=== PATIENT | female | born 1955 | race Caucasian/White ===

== ENCOUNTER 2018-03-30 18:05 | Emergency (ER) | payer MEDICAID ==
[~2018-03-30] VITALS: Ht 177.8 cm; Wt 69.4 kg
[~2018-03-30 18:05] MED LIST: CITA-77; CLON0.1T PO; DULO30CA PO; ESCI10TA; FLUO20CA19; GABA300C10; GLIP-115; GLIP-115 PO; LORA-205 PO; LORA-653; LURA40TA PO; METF-371 PO; MIRT1TAB14; PRAVASTATIN; SITA25TA3 PO; ZOLP10TA
[2018-03-30 18:11] VITALS: BP 95/35
[2018-03-30 18:55] LABS: Basophils # (auto) 0.1 uL; Basophils % (auto) 1.3 % (0.0-2.0); Eosinophils # (auto) 0.1 uL; Eosinophils % (auto) 2.4 % (0.0-7.0); Hematocrit 35.7 % (36.0-46.0); Hemoglobin 12.1 g/dL (12.2-16.2); Lymphocytes # (auto) 2.6 uL; Lymphocytes % (auto) 41.7 % (10.0-50.0); Mean Corpuscular Hemoglobin 30.9 pg (28.0-32.0); Mean Corpuscular Hgb Conc. 33.8 g/dL (32.0-36.0); Mean Corpuscular Volume 91.6 fL (80.0-100.0); Monocytes # (auto) 0.6 uL; Monocytes % (auto) 9.8 % (0.0-12.0); Neutrophils # (auto) 2.8 uL; Neutrophils % (auto) 44.8 % (37.0-80.0); Platelet Count (auto) 190 10^3/uL (140-450); Red Cell Distribution Width 13.9 % (11.8-14.3); White Blood Cell 6.1 10^3/uL (4.4-10.8)
[2018-03-30 19:11] LABS: Blood Urea Nitrogen 31 mg/dL (7-18); Calcium 8.3 mg/dL (8.5-10.1); Chloride 108 mmol/L (98-107); Potassium 4.6 mmol/L (3.5-5.1); Sodium 135 mmol/L (136-145)
[2018-03-30 19:19] LABS: Alanine Aminotransferase 68 U/L (13-56); Alkaline Phosphatase 138 U/L (45-117); Anion Gap 7 (5-15); Aspartate Aminotransferase 39 U/L (15-37); BUN/Creatinine Ratio 21.1; Bilirubin, Total 0.2 mg/dL (0.2-1.0); Carbon Dioxide 20 mmol/L (21-32); GFR African American 46 mL/min; GFR Non-African American 38 mL/min; Glucose 293 mg/dL (74-106); Total Protein 6.5 g/dL (6.4-8.2)
== END 2018-03-30 22:24 | disposition left against medical advice (07) ==
LOC: ER 18:09
DX: M54.5 Low back pain (principal); Z53.21 Procedure and treatment not carried out due to patient leaving prior to being seen by health care provider
CPT/HCPCS: 36415; 80053; 84484; 85025

== ENCOUNTER 2018-04-02 11:12 | Inpatient (IN) | payer MEDICAID ==
[~2018-04-02] VITALS: Ht 170.2 cm; Wt 76.9 kg
[2018-04-02 13:16] LABS: Basophils # (auto) 0.1 uL; Basophils % (auto) 1.4 % (0.0-2.0); Eosinophils # (auto) 0.1 uL; Eosinophils % (auto) 2.5 % (0.0-7.0); Hematocrit 43.7 % (36.0-46.0); Hemoglobin 14.5 g/dL (12.2-16.2); Lymphocytes # (auto) 1.5 uL; Lymphocytes % (auto) 29.5 % (10.0-50.0); Mean Corpuscular Hgb Conc. 33.2 g/dL (32.0-36.0); Mean Corpuscular Volume 93.6 fL (80.0-100.0); Monocytes # (auto) 0.4 uL; Monocytes % (auto) 7.6 % (0.0-12.0); Neutrophils # (auto) 2.9 uL; Platelet Count (auto) 175 10^3/uL (140-450); Red Blood Cells 4.67 10^6/uL (4.0-5.20); Red Cell Distribution Width 13.7 % (11.8-14.3)
[2018-04-02 13:31] LABS: Albumin 3.7 g/dL (3.4-5.0); Calcium 8.9 mg/dL (8.5-10.1)
[2018-04-02 13:34] LABS: Bilirubin, Total 0.4 mg/dL (0.2-1.0); Potassium 5.7 mmol/L (3.5-5.1); Total Protein 7.7 g/dL (6.4-8.2)
[2018-04-02 13:35] LABS: BUN/Creatinine Ratio 20.6
[2018-04-02] MEDS ORDERED: InsuLIN REG 1unit/0.01ml Soln (100units/ml) IV ONE (14:00)
[2018-04-02] MEDS ORDERED: CALCIUM GLUC 4.65meq/50ml D5AE 50 ML IV ONE (14:00)
[2018-04-02] MEDS ORDERED: DEXTROSE (50%) 50ML SYRG IV PRN (14:30)
[2018-04-02] MEDS ORDERED: MULTIPLE VITAMIN TAB PO ONE (14:30)
[2018-04-02] MEDS ORDERED: traMADol HCL 50 MG TAB PO PRN (14:30)
[2018-04-02] MEDS ORDERED: MORPHINE SULFATE 4 MG/ML SYR/VIAL IV PRN ×3 (14:30→14:45)
[2018-04-02] MEDS ORDERED: NITROGLYCERIN 0.4 MG SL TAB SL PRN (14:30)
[2018-04-02 14:31] LABS: INR 1.02 (0.9-1.15); Partial Thromboplastin Time 27.1 sec (23.78-33.04); Prothrombin Time 10.9 sec (9.27-12.13)
[2018-04-02] MEDS: SODIUM CHLORIDE 0.9% 1,000 ML IV SCH (14:53)
[2018-04-02] MEDS: MORPHINE SULFATE 4 MG/ML SYR/VIAL IV PRN ×3 (15:03→23:21)
[2018-04-02 16:47] LABS: Urine Bacteria NONE SEEN /hpf (None Seen); Urine Blood Negative /uL (Negative); Urine Specific Gravity 1.025 (1.001-1.035); Urine WBC 2 /hpf (0 - 5)
[2018-04-02] MEDS: ACCU-CHEK COMFORT CURVE STRIP VI SCH ×2 (16:47→22:00)
[2018-04-02] MEDS: InsuLIN REG 1unit/0.01ml Soln (100units/ml) SC SCH ×2 (16:47→22:00)
[2018-04-02 19:33] LABS: BUN/Creatinine Ratio 23.9; Calcium 8.3 mg/dL (8.5-10.1); Potassium 3.9 mmol/L (3.5-5.1)
[2018-04-02 22:00] VITALS: BP 141/73
[2018-04-02] MEDS: GABAPENTIN 300 MG CAP PO SCH (22:55)
[2018-04-02] MEDS: ATORVASTATIN 20 MG TAB PO SCH (22:55)
[2018-04-02] MEDS: MIRTAZAPINE 30 MG TAB PO SCH (22:56)
[2018-04-02] MEDS: QUEtiapine FUMARATE 100 MG TAB PO SCH (22:56)
[2018-04-03] MEDS: TEMAZEPAM 15 MG CAP PO PRN ×2 (00:03→21:39)
[2018-04-03] MEDS: SODIUM CHLORIDE 0.9% 1,000 ML IV SCH ×3 (00:30→20:38)
[2018-04-03] MEDS: MORPHINE SULFATE 4 MG/ML SYR/VIAL IV PRN ×5 (03:44→20:39)
[2018-04-03 05:00] VITALS: BP 103/55
[2018-04-03] MEDS: ACCU-CHEK COMFORT CURVE STRIP VI SCH ×4 (07:00→21:32)
[2018-04-03] MEDS: InsuLIN REG 1unit/0.01ml Soln (100units/ml) SC SCH ×4 (07:00→21:35)
[2018-04-03 07:48] LABS: Basophils # (auto) 0.1 uL; Eosinophils # (auto) 0.2 uL; Hematocrit 37.7 % (36.0-46.0); Hemoglobin 12.6 g/dL (12.2-16.2); Lymphocytes # (auto) 2.7 uL; Lymphocytes % (auto) 51.9 % (10.0-50.0); Mean Corpuscular Hemoglobin 30.6 pg (28.0-32.0); Mean Corpuscular Hgb Conc. 33.3 g/dL (32.0-36.0); Mean Corpuscular Volume 91.9 fL (80.0-100.0); Monocytes # (auto) 0.5 uL; Monocytes % (auto) 9.4 % (0.0-12.0); Neutrophils # (auto) 1.8 uL; Neutrophils % (auto) 33.7 % (37.0-80.0); Nucleated Red Blood Cells % 0.1 %; Platelet Count (auto) 167 10^3/uL (140-450); Red Cell Distribution Width 13.8 % (11.8-14.3); White Blood Cell 5.2 10^3/uL (4.4-10.8)
[2018-04-03 08:00] VITALS: BP 109/68
[2018-04-03 08:12] LABS: Calcium 8.5 mg/dL (8.5-10.1); Potassium 4.1 mmol/L (3.5-5.1)
[2018-04-03 08:14] LABS: BUN/Creatinine Ratio 22.4
[2018-04-03 08:20] VITALS: BP 109/68
[2018-04-03] MEDS: MULTIPLE VITAMIN TAB PO SCH (09:41)
[2018-04-03] MEDS: GABAPENTIN 300 MG CAP PO SCH ×2 (09:41→21:32)
[2018-04-03 12:40] VITALS: BP 126/74
[2018-04-03] MEDS ORDERED: metFORMIN HYDROCHLORIDE 500 MG TAB PO ONE (13:30)
[2018-04-03 16:39] VITALS: BP 139/74
[2018-04-03] MEDS: MIRTAZAPINE 30 MG TAB PO SCH (21:31)
[2018-04-03] MEDS: QUEtiapine FUMARATE 100 MG TAB PO SCH (21:31)
[2018-04-03] MEDS: ATORVASTATIN 20 MG TAB PO SCH (21:32)
[2018-04-03 22:00] VITALS: BP 117/59
[2018-04-04] MEDS: MORPHINE SULFATE 4 MG/ML SYR/VIAL IV PRN ×3 (00:31→08:36)
[2018-04-04 04:58] VITALS: BP 105/64
[2018-04-04 06:03] LABS: Anion Gap 9 (5-15); BUN/Creatinine Ratio 25.3; Blood Urea Nitrogen 25 mg/dL (7-18); Calcium 8.1 mg/dL (8.5-10.1); Carbon Dioxide 22 mmol/L (21-32); Chloride 108 mmol/L (98-107); GFR African American 73 mL/min; GFR Non-African American 60 mL/min; Glucose 230 mg/dL (74-106); Potassium 3.9 mmol/L (3.5-5.1); Sodium 139 mmol/L (136-145)
[2018-04-04] MEDS: SODIUM CHLORIDE 0.9% 1,000 ML IV SCH (06:08)
[2018-04-04] MEDS: InsuLIN REG 1unit/0.01ml Soln (100units/ml) SC SCH (06:16)
[2018-04-04] MEDS: ACCU-CHEK COMFORT CURVE STRIP VI SCH (06:16)
[2018-04-04 08:53] VITALS: BP 137/72
[2018-04-04] MEDS ORDERED: metFORMIN HYDROCHLORIDE 500 MG TAB PO SCH (10:00)
[2018-04-04 10:25] VITALS: BP 137/72
[2018-04-04] MEDS: MULTIPLE VITAMIN TAB PO SCH (10:27)
[2018-04-04] MEDS: GABAPENTIN 300 MG CAP PO SCH (10:28)
[2018-04-04 11:12] VITALS: BP 137/72
== END 2018-04-04 11:12 | disposition home or self-care (01) | DRG 469 ==
LOC: ER 11:12 → TELE 14:35 → TELE-WESTW 21:50
PROVIDERS: ADMIT Internal Medicine; ATTEND Internal Medicine
DX: N17.9 Acute kidney failure, unspecified (principal); E11.42 Type 2 diabetes mellitus with diabetic polyneuropathy; E11.65 Type 2 diabetes mellitus with hyperglycemia; E87.5 Hyperkalemia; F31.9 Bipolar disorder, unspecified; I10 Essential (primary) hypertension; E78.5 Hyperlipidemia, unspecified; F41.9 Anxiety disorder, unspecified; F17.210 Nicotine dependence, cigarettes, uncomplicated; Z82.49 Family history of ischemic heart disease and other diseases of the circulatory system; Z90.710 Acquired absence of both cervix and uterus; Z91.19 Patient's noncompliance with other medical treatment and regimen; Z88.5 Allergy status to narcotic agent; Z88.0 Allergy status to penicillin; Z88.8 Allergy status to other drugs, medicaments and biological substances; Z88.1 Allergy status to other antibiotic agents
CPT/HCPCS: 36415; 80048; 80053; 81001; 82962; 85025; 85610; 85730; 87081; 94761; 96365; 96375; G0378; J0610; J1815

== ENCOUNTER 2018-10-05 14:36 | Inpatient (IN) | payer MEDICAID ==
[~2018-10-05] VITALS: Ht 177.8 cm; Wt 88.0 kg
[~2018-10-05 14:36] MED LIST changes: +AMIT25TA9 PO; -CITA-77; -CLON0.1T PO; -DULO30CA PO; +ENAL2.5T PO; -ESCI10TA; -FLUO20CA19; +GABA-339 PO; -GABA300C10; -GLIP-115; +LAMO25TA2 PO; -LORA-205 PO; -LORA-653; +LURA20TA PO; -LURA40TA PO; -METF-371 PO; +METF500S PO; -MIRT1TAB14; +MIRT30TA PO; -PRAVASTATIN; +QUET200T30 PO; -SITA25TA3 PO; +TEMA7.5C11 PO; -ZOLP10TA
[2018-10-05 15:25] LABS: Basophils # (auto) 0.1 uL; Basophils % (auto) 0.7 % (0.0-2.0); Eosinophils # (auto) 0.1 uL; Eosinophils % (auto) 1.4 % (0.0-7.0); Hematocrit 38.8 % (36.0-46.0); Hemoglobin 13.3 g/dL (12.2-16.2); Lymphocytes # (auto) 2.7 uL; Mean Corpuscular Hemoglobin 31.8 pg (28.0-32.0); Mean Corpuscular Hgb Conc. 34.4 g/dL (32.0-36.0); Mean Corpuscular Volume 92.3 fL (80.0-100.0); Monocytes # (auto) 0.7 uL; Monocytes % (auto) 9.5 % (0.0-12.0); Neutrophils # (auto) 3.4 uL; Neutrophils % (auto) 49.4 % (37.0-80.0); Platelet Count (auto) 176 10^3/uL (140-450)
[2018-10-05 15:34] LABS: Albumin 3.8 g/dL (3.4-5.0); Anion Gap 10 (5-15); Blood Urea Nitrogen 45 mg/dL (7-18); Calcium 8.7 mg/dL (8.5-10.1); Carbon Dioxide 21 mmol/L (21-32); Chloride 106 mmol/L (98-107); Glucose 254 mg/dL (74-106); Potassium 4.2 mmol/L (3.5-5.1); Sodium 137 mmol/L (136-145)
[2018-10-05 15:40] LABS: Alanine Aminotransferase 20 U/L (13-56); Alkaline Phosphatase 101 U/L (45-117); Aspartate Aminotransferase 8 U/L (15-37); Bilirubin, Total 0.4 mg/dL (0.2-1.0); Blood Alcohol < 3.0 mg/dL (0-5); GFR African American 36 mL/min; GFR Non-African American 30 mL/min; Magnesium 1.9 mg/dL (1.6-2.6); Total Protein 7.2 g/dL (6.4-8.2)
[2018-10-05] MEDS ORDERED: MORPHINE SULF INJ 2 MG/ML SYRINGE 1ML IV PRN (17:30)
[2018-10-05] MEDS ORDERED: LABETALOL HCL 5 MG/ML ML 20ML VIAL IV PRN (17:30)
[2018-10-05] MEDS ORDERED: DEXTROSE (50%) 50ML SYRG IV PRN (17:30)
[2018-10-05] MEDS ORDERED: NITROGLYCERIN 0.4 MG SL TAB SL PRN (17:30)
[2018-10-05] MEDS ORDERED: LACTULOSE 20Gm/30ML SOLN PO PRN (17:30)
[2018-10-05] MEDS ORDERED: traMADol HCL 50 MG TAB PO PRN (17:30)
[2018-10-05] MEDS ORDERED: ONDANSETRON HCL 4 MG/2 ML VIAL IV PRN (17:30)
[2018-10-05] MEDS: SODIUM CHLORIDE 0.9% 1,000 ML IV SCH ×2 (17:55→19:08)
--- NOTE | 2018-10-05 18:27 | NUR ---
PT ADMITTED TO FLOOR VIA BED FROM [facility].. PT REPORTS 10/10 PAIN IN BACK. VITALS: BP 116/65, HR 89, 02 95, RR 18, T 98.0. PT RESTING IN BED AND REQUESTING MEAL TRAY. PT ORIENTED TO UNIT AND CALL LIGHT. SIDE RAILS UP X2, BED IN LOWEST LOCKED POSITION, WILL CONTINUE TO MONITOR.
[2018-10-05 18:45] VITALS: BP 116/65
[2018-10-05] MEDS: ACCU-CHEK COMFORT CURVE STRIP VI SCH (19:44)
[2018-10-05] MEDS: InsuLIN REG 1unit/0.01ml Soln (100units/ml) SC SCH (19:44)
--- NOTE | 2018-10-05 20:00 | NUR ---
Hospitalist stewart. Cheng ROYAL paged hospitalist d/t patient complaining of severe 10/10 pain.
--- NOTE | 2018-10-05 20:15 | NUR ---
Patient informed RN that she is not allergic to hydrocodone and does not know why it is on her file that she is allergic to hydrocodone. RN to inform hospitalist when call back is received.
--- NOTE | 2018-10-05 20:30 | NUR ---
Received call back from hospitalist. Hospitalist updated on patients pain and condition. New orders received.
--- NOTE | 2018-10-05 20:40 | NUR ---
IV insertion IV access obtained, via clean sterile technique by inserting 22 gauge catheter at right forearm after 1 attempt. IV secured properly. No trauma to site. Patient tolerated procedure well.
[2018-10-05] MEDS ORDERED: MORPHINE SULFATE 4 MG/ML SYR/VIAL IV ONE (21:00)
[2018-10-05] MEDS: MIRTAZAPINE 30 MG TAB PO SCH (21:59)
[2018-10-05 22:00] VITALS: BP 106/68
[2018-10-05] MEDS ORDERED: ATORVASTATIN 20 MG TAB PO SCH (22:00)
[2018-10-05] MEDS: TEMAZEPAM 15 MG CAP PO PRN (22:23)
[2018-10-06] MEDS: ACCU-CHEK COMFORT CURVE STRIP VI SCH ×7 (00:05→23:45)
[2018-10-06] MEDS: InsuLIN REG 1unit/0.01ml Soln (100units/ml) SC SCH ×7 (00:09→23:45)
[2018-10-06] MEDS ORDERED: BUSP15TA60 PO (04:32)
[2018-10-06] MEDS ORDERED: PROP60CA34 PO (04:32)
[2018-10-06 04:57] VITALS: BP 97/57
[2018-10-06 06:01] LABS: Potassium 3.7 mmol/L (3.5-5.1)
[2018-10-06 06:05] LABS: BUN/Creatinine Ratio 23.1
[2018-10-06 06:06] LABS: Bilirubin, Total 0.3 mg/dL (0.2-1.0)
--- NOTE | 2018-10-06 06:12 | NUR ---
Hospitalist paged: Patient complaining of increased pain and states that Tramadol is not effective in managing her pain.
[2018-10-06 06:16] LABS: Cholesterol 244 mg/dL (< 200)
[2018-10-06 06:17] LABS: HDL Cholesterol 40 mg/dL (40-59); LDL Cholesterol 160 mg/dL (< 100); Triglycerides 311 mg/dL (< 150)
--- NOTE | 2018-10-06 06:20 | NUR ---
Received call back from hospitalist. Hospitalist updated on patients pain and condition. New orders received.
[2018-10-06] MEDS ORDERED: HYDROmorphone HCL 2 MG/ML VL IV ONE (06:30)
--- NOTE | 2018-10-06 08:21 | NUR ---
PT RESTING IN BED. PT REPORTS 10/10 PAIN IN BACK AND SLIGHT PAIN IN CHEST. PT REPORTS PAIN IS THE SAME FROM YESTERDAY PRIOR TO ADMISSION. NO PAIN MEDICATION AVAILABLE AT THIS TIME, WILL ASK HOSPITALIST. PT REQUESTING A SALAD AND 2 ICE TEAS WITH EVERY MEAL. REQUEST ALREADY SENT TO DIETARY BY NIGHT NURSE. WILL CONTINUE TO MONITOR.
[2018-10-06 08:48] VITALS: BP 101/59
[2018-10-06] MEDS: ASPirin 81 mg TAB PO SCH (09:45)
[2018-10-06] MEDS: ENOXAPARIN SOD 40 MG/0.4 ML SYRINGE SC SCH (09:46)
[2018-10-06] MEDS: PANTOPRAZOLE 40 MG TAB PO SCH (09:46)
--- NOTE | 2018-10-06 11:15 | NUR ---
SPOKE WITH DR POWER, REQUESTED PRN PAIN MEDICATION. MD REPORTS NO PAIN MEDICATION, PT WAS REQUESTING DILAUDID. DR POWER REPORTS HE WILL CONTINUE PT PSYCH MEDS, WILL CONTINUE TO MONITOR.
[2018-10-06] MEDS: SODIUM CHLORIDE 0.9% 1,000 ML IV SCH (12:14)
--- NOTE | 2018-10-06 12:22 | NUR ---
SPOKE WITH DR POWER ABOUT PAIN MEDICATION. AGREED TO ACETAMINOPHEN. SPOKE WITH PT, PT REPORTS SHE IS NOT ALLERGIC TO ACETAMINOPHEN, BUT REPORTS SHE WILL NOT TAKE IT IT DOES NOT ALLEVIATE HER PAIN. UPDATED ALLERGY LIST. WILL CONTINUE TO MONITOR.
--- NOTE | 2018-10-06 12:29 | NUR ---
PT REPORTS SHE HAS NO PREVIOUS BACK INJURY AND NO KNOWLEDGE OF WHAT IS CAUSING THE PAIN IN HER BACK.
[2018-10-06] MEDS ORDERED: ACETAMINOPHEN 500 MG TAB PO PRN (12:30)
[2018-10-06 13:00] VITALS: BP 136/76
--- NOTE | 2018-10-06 13:59 | NUR ---
ASKED FLIGHT CONTROL SPECIALIST TO CALL IN NEPHRO CONSULT.
--- NOTE | 2018-10-06 15:00 | NUR ---
CALLED TELE [employer] TO INITIATE PSYCH CONSULT. TECH REPORTS SHE WILL SUBMIT INFORMATION AND A PHYSICIAN WILL CALL BACK, WILL CONTINUE TO MONITOR.
--- NOTE | 2018-10-06 16:45 | NUR ---
TELE MED CALLED BACK. TECH REPORTS A PHYSICIAN WILL BE AVAILABLE TO DO PSYCH EVALUATION TOMORROW BETWEEN 0700 AND 1200. WILL CONTINUE TO MONITOR.
--- NOTE | 2018-10-06 16:49 | NUR ---
CALLED ULTRASOUND, ULTRASOUND REPORTS THERE WAS NO EXECUTIVE LEGAL SECRETARY AVAILABLE TODAY, BUT PT CAROTID ULTRASOUND WILL BE DONE FIRST THING IN MORNING. PAGED ECHO TO FOLLOW UP ON PT ECHOCARDIOGRAM, PBX REPORTS THEY WILL PAGE ECHO TO CALL BACK.
[2018-10-06 17:11] VITALS: BP 138/71
--- NOTE | 2018-10-06 20:00 | NUR ---
Opening Shift Note: patient resting in bed while locked in lowest position and side rails up x2. i explained to patient as to why she does not have any pain medication at this moment. She accepts this reasoning. No complaints at this time of pain or discomfort. she was updated on her plan of care. Aware to use call light if assistance is needed. Will continue to monitor.
[2018-10-06 21:54] VITALS: BP 138/82
[2018-10-06] MEDS: GABAPENTIN 300 MG CAP PO SCH (22:11)
[2018-10-06] MEDS: ATORVASTATIN 20 MG TAB PO SCH (22:11)
[2018-10-06] MEDS: TEMAZEPAM 15 MG CAP PO PRN (22:12)
[2018-10-06] MEDS: MIRTAZAPINE 30 MG TAB PO SCH (22:12)
[2018-10-06] MEDS: LORazepam 0.5 MG TAB PO PRN (22:12)
[2018-10-07] MEDS: InsuLIN REG 1unit/0.01ml Soln (100units/ml) SC SCH ×6 (04:05→20:22)
[2018-10-07] MEDS: ACCU-CHEK COMFORT CURVE STRIP VI SCH ×5 (04:05→20:22)
[2018-10-07 05:18] VITALS: BP 152/66
[2018-10-07] MEDS: GABAPENTIN 300 MG CAP PO SCH ×3 (06:00→22:03)
--- NOTE | 2018-10-07 07:30 | NUR ---
Opening Shift Note Assumed care of patient, awake and alert. No S/S of distress/SOB or pain. Instructed on POC and to call for assist PRN, will continue to monitor for changes Q1hr and PRN.
[2018-10-07 07:38] LABS: Calcium 8.4 mg/dL (8.5-10.1); Potassium 4.6 mmol/L (3.5-5.1)
[2018-10-07 08:59] VITALS: BP 122/75
[2018-10-07] MEDS: ENOXAPARIN SOD 40 MG/0.4 ML SYRINGE SC SCH (09:53)
[2018-10-07] MEDS: ASPirin 81 mg TAB PO SCH (09:53)
[2018-10-07] MEDS: SODIUM CHLORIDE 0.9% 1,000 ML IV SCH ×2 (09:53→19:44)
[2018-10-07] MEDS: PANTOPRAZOLE 40 MG TAB PO SCH (09:54)
[2018-10-07] MEDS ORDERED: POLYETHYLENE GLYCOL 17 GM PWDR PO PRN (13:15)
[2018-10-07 13:17] VITALS: BP 140/74
--- NOTE | 2018-10-07 15:25 | NUR ---
DR POWER PAGED RE: PT'S PSYCH EVALUATION REPORT. WAITING FOR CALL BACK.
[2018-10-07] MEDS ORDERED: lamoTRIgine 100 MG TAB PO ONE (15:45)
--- NOTE | 2018-10-07 15:46 | NUR ---
SPOKE TO DR POWER PSYCH EVALUATION REPORT READ TO MD. MADE AWARE THAT PT HAD BEEN VERY UPSET FOR NOT GETTING HER PAIN MEDICATION AND HER PSYCH MEDICATIONS. NEW ORDERS RECEIVED AND CARRIED OUT.
--- NOTE | 2018-10-07 17:00 | NUR ---
PT NOTES PT HAD BEEN UPSET WITH HOW NOT ALL OF HER PSYCH MEDICATIONS WERE BEING GIVEN. EXPLAINED TO PT THE DOCTOR HAD BEEN AWARE OF HER HOME MEDS AND THE DOCTOR HAD EXPLAINED TO PT THAT HE WILL CONTINUE THE PSYCH MEDICATIONS THAT THE PSYCHIATRIST WILL RECOMMEND. PT IS VERY CONCERNED ABOUT HER NIGHTTIME MEDICATIONS. I PRINTED A LIST OF HER MEDS THAT SHE WILL GET TONIGHT AND WENT OVER IT WITH HER. PT WAS SATISFIED.
[2018-10-07 17:25] VITALS: BP 137/75
--- NOTE | 2018-10-07 18:30 | NUR ---
UA PT GIVEN THE SPECIMEN CUP AND INSTRUCTIONS TO COLLECT URINE. PT VERBALIZED UNDERSTANDING.
--- NOTE | 2018-10-07 19:00 | NUR ---
CLOSING NOTES REPORT GIVEN TO NOC RN. PT RESTING. NO DISTRESS NOTED.
--- NOTE | 2018-10-07 20:00 | NUR ---
Opening Shift Note: Patient resting in bed calmly. She has no complaints of pain at this moment. She is AOx4 and ambulates short distances without complaints of exertion. Bed is locked in it's lowest position with side rails up x2. She was brought up to date on her plan of care. Will continue to monitor.
--- NOTE | 2018-10-07 22:00 | NUR ---
Patient UA was collected and sent to lab via bullet system.
[2018-10-07] MEDS: TEMAZEPAM 15 MG CAP PO PRN (22:03)
[2018-10-07] MEDS: MIRTAZAPINE 30 MG TAB PO SCH (22:03)
[2018-10-07] MEDS: ATORVASTATIN 20 MG TAB PO SCH (22:03)
[2018-10-07] MEDS: LATUDA 60MG PO SCH (22:03)
[2018-10-07] MEDS: OXYCODONE W/ ACETAMINOPHEN 5/325MG TABLET PO PRN (22:03)
[2018-10-07] MEDS: LORazepam 0.5 MG TAB PO PRN (22:03)
[2018-10-07 22:29] LABS: Urine Bacteria NONE SEEN /hpf (None Seen); Urine Blood 1+ /uL (Negative); Urine Specific Gravity 1.011 (1.001-1.035); Urine WBC 9 /hpf (0 - 5)
[2018-10-07 22:32] LABS: Sodium Urine 90 mmol/L (40-220)
[2018-10-07 22:37] LABS: Creatinine, Urine 22 mg/dL (30.0-125.0)
[2018-10-07 22:39] LABS: Alcohol, Urine < 3.0 mg/dL (0-5); Amphetamine Screen, Urine NEGATIVE (NEGATIVE); Barbiturate Scree,Urine NEGATIVE (NEGATIVE); Benzodiazephine Screen, Urine NEGATIVE (NEGATIVE); Cannabinoid Screen, Urine POSITIVE (NEGATIVE); Cocaine Screen, Urine POSITIVE (NEGATIVE); Opiate Scree,Urine NEGATIVE (NEGATIVE); Phencyclidine Screen, Urine NEGATIVE (NEGATIVE)
[2018-10-07 22:40] VITALS: BP 113/70
[2018-10-08] MEDS: ACCU-CHEK COMFORT CURVE STRIP VI SCH ×6 (00:06→20:01)
[2018-10-08] MEDS: InsuLIN REG 1unit/0.01ml Soln (100units/ml) SC SCH ×6 (00:06→20:03)
[2018-10-08] MEDS: OXYCODONE W/ ACETAMINOPHEN 5/325MG TABLET PO PRN ×3 (04:50→22:26)
[2018-10-08 05:51] VITALS: BP_SYST 126; BP_SYST 150; BP_DIAS 73; BP_DIAS 83
[2018-10-08 06:09] LABS: Calcium 8.2 mg/dL (8.5-10.1); Potassium 4.3 mmol/L (3.5-5.1)
[2018-10-08] MEDS: GABAPENTIN 300 MG CAP PO SCH ×3 (06:10→21:35)
[2018-10-08 06:16] LABS: BUN/Creatinine Ratio 17.3; Bilirubin, Total 0.3 mg/dL (0.2-1.0); Phosphorus 3.5 mg/dL (2.5-4.90); Total Protein 5.9 g/dL (6.4-8.2)
[2018-10-08] MEDS: ENOXAPARIN SOD 40 MG/0.4 ML SYRINGE SC SCH (08:42)
[2018-10-08] MEDS: PANTOPRAZOLE 40 MG TAB PO SCH (08:42)
[2018-10-08] MEDS: lamoTRIgine 100 MG TAB PO SCH (08:43)
[2018-10-08] MEDS: ASPirin 81 mg TAB PO SCH (08:43)
[2018-10-08] MEDS: SODIUM CHLORIDE 0.9% 1,000 ML IV SCH ×2 (08:46→20:01)
[2018-10-08 08:52] VITALS: BP 127/68
[2018-10-08] MEDS: LORazepam 0.5 MG TAB PO PRN (09:10)
--- NOTE | 2018-10-08 10:10 | NUR ---
MD JOEY AT BEDSIDE NEW ORDERS TO CONTINUE HOME MEDICATIONS, DISCONTINUE ATIVAN AND RESTORIL. WILL FOLLOW THROUGH WITH NEW ORDERS. WILL CONTINUE CARE.
[2018-10-08] MEDS ORDERED: CIPROFLOXACIN HCL 500 MG TAB PO ONE (10:15)
[2018-10-08] MEDS ORDERED: busPIRone HCL 10 MG TAB PO ONE (10:30)
[2018-10-08] MEDS ORDERED: glipiZIDE 5 MG TAB PO ONE (10:30)
[2018-10-08] MEDS ORDERED: metFORMIN HYDROCHLORIDE 500 MG TAB PO ONE (10:30)
[2018-10-08] MEDS ORDERED: ENALAPRIL MALEATE 2.5 MG TAB PO ONE (10:30)
[2018-10-08 13:04] VITALS: BP 151/94
[2018-10-08] MEDS: PROPRANOLOL HCL 20 MG TAB PO SCH ×2 (14:05→21:34)
[2018-10-08 17:18] VITALS: BP 129/76
--- NOTE | 2018-10-08 19:30 | NUR ---
Opening Shift Note Assumed care of patient, awake and alert oriented x4. No S/S of distress/SOB noted. Bed is in lowest locked position with bed rails up x2 and call light is within reach of the patient. Bed alarm is armed. Instructed on POC and to call for assist PRN.
[2018-10-08] MEDS: LATUDA 60MG PO SCH (21:30)
[2018-10-08] MEDS: busPIRone HCL 10 MG TAB PO SCH (21:32)
[2018-10-08] MEDS: MIRTAZAPINE 30 MG TAB PO SCH (21:33)
[2018-10-08] MEDS: ATORVASTATIN 20 MG TAB PO SCH (21:35)
[2018-10-08] MEDS: AMITRIPTYLINE HCL 25 MG TAB PO SCH (21:37)
[2018-10-08] MEDS: CIPROFLOXACIN HCL 500 MG TAB PO SCH (21:38)
--- NOTE | 2018-10-08 21:45 | NUR ---
Called Doctor Marciano regarding Restoril: Left message to doctor Marciano. Patient requesting Restoril for sleep. Patient states that "I wont be able to sleep at night without my sleeping pill."
[2018-10-08 22:00] VITALS: BP 117/75
[2018-10-09] MEDS: ACCU-CHEK COMFORT CURVE STRIP VI SCH ×7 (00:06→23:33)
[2018-10-09] MEDS: InsuLIN REG 1unit/0.01ml Soln (100units/ml) SC SCH ×7 (00:06→23:33)
[2018-10-09] MEDS: OXYCODONE W/ ACETAMINOPHEN 5/325MG TABLET PO PRN ×4 (04:59→23:19)
--- NOTE | 2018-10-09 05:00 | NUR ---
Patient states to have almost fell: Patient states "I almost fell while I was trying to get back into bed from the commode. I have no feeling in my legs and my core from the waste down. I dont walk well, that is why i cam into the hospital." RISK PREVENTION ENGINEER was just outside the door and assisted patient back into bed. Patient stated that they did not injure themselves and did not hit their head. Patient stated " I was holding onto the bed rail, but I did not hit the floor." Patient is resting in bed with no S/S of distress noted. Call light is within each of the patient. Addendum: 10/09/18 at 0505 by Maggie Handy RN RN Spelling error: waist
[2018-10-09 05:34] VITALS: BP 107/66
[2018-10-09] MEDS: PROPRANOLOL HCL 20 MG TAB PO SCH ×3 (06:29→21:30)
[2018-10-09] MEDS: GABAPENTIN 300 MG CAP PO SCH ×3 (06:29→21:33)
[2018-10-09 06:32] LABS: Basophils # (auto) 0.1 uL; Eosinophils # (auto) 0.2 uL; Eosinophils % (auto) 2.9 % (0.0-7.0); Hematocrit 33.3 % (36.0-46.0); Hemoglobin 11.5 g/dL (12.2-16.2); Lymphocytes # (auto) 2.3 uL; Lymphocytes % (auto) 44.8 % (10.0-50.0); Mean Corpuscular Hemoglobin 32.3 pg (28.0-32.0); Mean Corpuscular Hgb Conc. 34.6 g/dL (32.0-36.0); Mean Corpuscular Volume 93.4 fL (80.0-100.0); Monocytes # (auto) 0.5 uL; Monocytes % (auto) 9.3 % (0.0-12.0); Neutrophils # (auto) 2.2 uL; Nucleated Red Blood Cells % 0.1 %; Platelet Count (auto) 128 10^3/uL (140-450); Red Blood Cells 3.56 10^6/uL (4.0-5.20); Red Cell Distribution Width 11.7 % (11.8-14.3); White Blood Cell 5.2 10^3/uL (4.4-10.8)
[2018-10-09 06:53] LABS: Potassium 3.8 mmol/L (3.5-5.1)
[2018-10-09] MEDS ORDERED: glipiZIDE 5 MG TAB PO SCH (07:00)
[2018-10-09 07:03] LABS: Albumin 2.7 g/dL (3.4-5.0); BUN/Creatinine Ratio 15.7; Bilirubin, Total 0.3 mg/dL (0.2-1.0); Calcium 7.5 mg/dL (8.5-10.1); Total Protein 5.3 g/dL (6.4-8.2)
[2018-10-09 07:35] VITALS: BP 116/71
[2018-10-09] MEDS: CIPROFLOXACIN HCL 500 MG TAB PO SCH ×2 (09:29→21:34)
[2018-10-09] MEDS: lamoTRIgine 100 MG TAB PO SCH (09:29)
[2018-10-09] MEDS: PANTOPRAZOLE 40 MG TAB PO SCH (09:29)
[2018-10-09] MEDS: SODIUM CHLORIDE 0.9% 1,000 ML IV SCH ×2 (09:29→20:05)
[2018-10-09] MEDS: busPIRone HCL 10 MG TAB PO SCH ×2 (09:29→21:31)
[2018-10-09] MEDS: ASPirin 81 mg TAB PO SCH (09:29)
[2018-10-09] MEDS: metFORMIN HYDROCHLORIDE 500 MG TAB PO SCH (09:30)
[2018-10-09] MEDS: ENOXAPARIN SOD 40 MG/0.4 ML SYRINGE SC SCH (09:30)
[2018-10-09] MEDS: ENALAPRIL MALEATE 2.5 MG TAB PO SCH (09:31)
[2018-10-09 11:43] VITALS: BP 123/77
--- NOTE | 2018-10-09 13:04 | NUR ---
NUTRITION ASSESSMENT NOTES Please refer to link notes of nutrition screen form filed under the intervention section of the plan of care for further details. Est. Needs: 1700 kcal to 2100 kcal (20-25 kcal/kgBW), 67 gms to 84 gms pro (0.8-1.0 gms/kgBW). Will continue to monitor pertinent labs and reassess nutrient need prn Thank you. Addendum: 10/09/18 at [address] Amended: Links added.
[2018-10-09 16:19] VITALS: BP 132/82
--- NOTE | 2018-10-09 16:40 | NUR ---
assessment Patient is a 63 year old female who is alert and oriented. Patients cognitive abilities are intact. Prior to admission patient lived home with family and functioned independently. Patient informed me she is able to care for her own ADLs. Per patient she will return home to her prior living arrangements post discharge and family will transport her home. Per patient her PCP is Dr Philip Tariq. Patient has been admitted for CVA. Per patient she is having right side weakness. Patient will benefit from home health for PT on discharge. Patient has no DME at home. Patient will also need a fww for home. I informed patient she has a right to speak to a social group worker regarding all care. I informed patient she has a right to participate in any and all discharge planning. Patient is aware of visiting hours on the hospital floor. I informed patient she has a right to privacy. Patient does not have a POA and advanced directive. I have offered patient information on POA and advanced directives. I informed the patient the advantages and benefits of having an Advanced Directive. Patient verbalized understanding and agreed to discharge plan. Addendum: 10/09/18 at 1652 by Kerri WAKEFIELD Amended: Links added.
[2018-10-09] MEDS: glipiZIDE 5 MG TAB PO SCH (18:31)
--- NOTE | 2018-10-09 19:14 | NUR ---
CLOSING NOTE ENDORSED CARE TO WHEAT SHIPPER RN. PATIENT SITTING AT BEDSIDE, BED IN LOW LOCK POSITION, CALL LIGHT IN REACH. NO S/S OF DISTRESS.
--- NOTE | 2018-10-09 19:30 | NUR ---
Opening Shift Note Assumed care of patient, awake and alert oriented x4. No S/S of distress/SOB noted on room air. Bed is in lowest locked position with bed rails up x2 and call light is within reach of the patient. Instructed on POC and to call for assist PRN.
--- NOTE | 2018-10-09 20:00 | NUR ---
Patient ambulated around Unit: Patient ambulated a lap around unit with walker assisted by SHUTTLELESS LOOM WEAVER. Patient tolerated well. No s/s of distress SOB noted. Patient resting in bed now with call light in reach of the patient.
[2018-10-09] MEDS: MIRTAZAPINE 30 MG TAB PO SCH (21:32)
[2018-10-09] MEDS: AMITRIPTYLINE HCL 25 MG TAB PO SCH (21:33)
[2018-10-09] MEDS: ATORVASTATIN 20 MG TAB PO SCH (21:34)
[2018-10-09] MEDS: LATUDA 60MG PO SCH (21:35)
[2018-10-09 22:00] VITALS: BP 120/74
[2018-10-10] MEDS: ACCU-CHEK COMFORT CURVE STRIP VI SCH ×3 (03:40→12:00)
[2018-10-10] MEDS: InsuLIN REG 1unit/0.01ml Soln (100units/ml) SC SCH ×3 (03:41→12:00)
[2018-10-10 05:00] VITALS: BP 108/63
[2018-10-10] MEDS: GABAPENTIN 300 MG CAP PO SCH ×2 (05:49→14:00)
[2018-10-10] MEDS: OXYCODONE W/ ACETAMINOPHEN 5/325MG TABLET PO PRN (05:49)
[2018-10-10] MEDS: PROPRANOLOL HCL 20 MG TAB PO SCH ×2 (05:50→14:00)
[2018-10-10 06:11] LABS: BUN/Creatinine Ratio 15.8; Calcium 8.4 mg/dL (8.5-10.1); Potassium 4.7 mmol/L (3.5-5.1)
[2018-10-10] MEDS: glipiZIDE 5 MG TAB PO SCH (06:43)
--- NOTE | 2018-10-10 07:30 | NUR ---
Opening Shift Note Assumed care of patient, awake and alert. No S/S of distress/SOB or pain. Instructed on POC and to call for assist PRN, will continue to monitor for changes Q1hr and PRN. Bed locked in lowest position with two side rails up can call light in reach.
[2018-10-10 09:00] VITALS: BP 136/78
[2018-10-10] MEDS: ENOXAPARIN SOD 40 MG/0.4 ML SYRINGE SC SCH (09:11)
[2018-10-10] MEDS: metFORMIN HYDROCHLORIDE 500 MG TAB PO SCH (09:14)
[2018-10-10] MEDS: PANTOPRAZOLE 40 MG TAB PO SCH (09:14)
[2018-10-10] MEDS: CIPROFLOXACIN HCL 500 MG TAB PO SCH (09:14)
[2018-10-10] MEDS: lamoTRIgine 100 MG TAB PO SCH (09:14)
[2018-10-10] MEDS: ASPirin 81 mg TAB PO SCH (09:14)
[2018-10-10] MEDS: busPIRone HCL 10 MG TAB PO SCH (09:14)
[2018-10-10] MEDS: ENALAPRIL MALEATE 2.5 MG TAB PO SCH (09:15)
[2018-10-10] MEDS: SODIUM CHLORIDE 0.9% 1,000 ML IV SCH (09:15)
--- NOTE | 2018-10-10 09:20 | NUR ---
PT ATTEMPTING TO WORK WITH PATIENT, PATIENT REFUSED. I EDUCATED PATIENT AND PATIENT AGREED TO WORK WITH PT AND WAS ABLE TO WALK WITH PT AND A WALKER. PER PT PATIENT IS ABLE TO BE DISCHARGED FROM PT STAND POINT. PATIENT TOLERATED WELL NO SIGNS AND SYMPTOMS OF DISTRESS NOTED.
--- NOTE | 2018-10-10 10:00 | NUR ---
MEDICATION ADMINISTERED PER MAR, ALL QUESTIONS ANSWERED AND SIDE EFFECTS GIVEN. PATIENT VERBALIZED UNDERSTANDING.
[2018-10-10 10:55] VITALS: BP 136/78
--- NOTE | 2018-10-10 12:19 | NUR ---
CALLED AND LEFT MESSAGE FOR DR COOK, WILL AWAIT CALL BACK REGARDING PRESCRIPTIONS FOR PATIENT UPON DISCHARGE.
--- NOTE | 2018-10-10 12:30 | NUR ---
PATIENT REFUSING ACCU CHECK STATES SHE WILL CHECK IT AT HOME.
[2018-10-10 13:00] VITALS: BP 112/69
--- NOTE | 2018-10-10 13:03 | NUR ---
RECEIVED A CALL BACK FROM DR COOK PRESCRIPTIONS RECEIVED AND WILL CALL IN FOR ASPIRIN 81 MG DAILY #90 AND LIPITOR 20MG DAILY #90 PATIENTS PHARMACY VERIFIED.
--- NOTE | 2018-10-10 13:09 | NUR ---
PRESCRIPTIONS CALLED IN TO [facility]YUDMIL[facility] SOLOMON LIPITOR 20 MG AND ASPIRIN 81 MG
--- NOTE | 2018-10-10 14:10 | NUR ---
Discharge instructions given as ordered. Encourage to follow up with PMD as instructed. All questions and concerns addressed. Patient verbalized understanding. Medication reconciliation form completed and copy given to patient. Home medications held in Pharmacy returned to patient, and no needed vaccines given. IV removed with catheter intact, pressure dressing applied. Telemetry unit returned to ICU. Patient taken to vehicle via wheelchair with all personal belongings, accompanied by staff and family member. No distress noted at time of departure. Patient also had all home medications in hand.
== END 2018-10-10 14:30 | disposition home or self-care (01) | DRG 469 ==
LOC: ER 14:36 → TELE 17:25 → TELE-WESTW 18:31
PROVIDERS: ADMIT Internal Medicine; ATTEND Internal Medicine
DX: N17.0 Acute kidney failure with tubular necrosis (principal); E44.0 Moderate protein-calorie malnutrition; E11.21 Type 2 diabetes mellitus with diabetic nephropathy; E11.42 Type 2 diabetes mellitus with diabetic polyneuropathy; E86.0 Dehydration; G45.9 Transient cerebral ischemic attack, unspecified; E11.65 Type 2 diabetes mellitus with hyperglycemia; E11.22 Type 2 diabetes mellitus with diabetic chronic kidney disease; F41.9 Anxiety disorder, unspecified; N39.0 Urinary tract infection, site not specified; I12.9 Hypertensive chronic kidney disease with stage 1 through stage 4 chronic kidney disease, or unspecified chronic kidney disease; F31.9 Bipolar disorder, unspecified; E78.5 Hyperlipidemia, unspecified; N18.3 Chronic kidney disease, stage 3 (moderate); N31.9 Neuromuscular dysfunction of bladder, unspecified; I25.10 Atherosclerotic heart disease of native coronary artery without angina pectoris; F12.90 Cannabis use, unspecified, uncomplicated; Z68.27 Body mass index [BMI] 27.0-27.9, adult; Z88.0 Allergy status to penicillin; Z88.8 Allergy status to other drugs, medicaments and biological substances; Z82.49 Family history of ischemic heart disease and other diseases of the circulatory system; Z83.3 Family history of diabetes mellitus; Z90.710 Acquired absence of both cervix and uterus; Z91.19 Patient's noncompliance with other medical treatment and regimen
CPT/HCPCS: 36415; 70450; 71045; 72131; 76775; 80048; 80053; 80061; 80307; 80320; 81001; 82043; 82306; 82550; 82570; 82962; 83036; 83735; 83880; 83970; 84100; 84300; 84484; 85025; 85379; 85652; 86141; 87081; 93005; 93306; 93886; 97116; 97530; A6257; G0378; J1815

== ENCOUNTER 2019-01-31 12:12 | Emergency (ER) | payer MEDICAID ==
[~2019-01-31] VITALS: Ht 172.7 cm; Wt 72.6 kg
[~2019-01-31 12:12] MED LIST changes: +ASPI-404 PO; +ATOR20TA50 PO; +BUSP15TA60 PO; +DOCU1CAP PO; +ESOM20CA PO; -GLIP-115 PO; +GLIP5TAB12 PO; +HYDR50TA69 PO; +LINA290C OR; +MAGN400C2 PO; +MORP60TA25 PO; +PROP60CA34 PO; -QUET200T30 PO
[2019-01-31] MEDS ORDERED: SODIUM CHLORIDE 0.9% 1,000 ML IV ONE ×2 (12:28)
[2019-01-31 13:25] LABS: Basophils # (auto) 0.1 uL; Basophils % (auto) 0.9 % (0.0-2.0); Eosinophils # (auto) 0.1 uL; Eosinophils % (auto) 0.9 % (0.0-7.0); Hematocrit 35.6 % (36.0-46.0); Hemoglobin 11.7 g/dL (12.2-16.2); Lymphocytes # (auto) 1.3 uL; Lymphocytes % (auto) 22.5 % (10.0-50.0); Mean Corpuscular Hemoglobin 28.8 pg (28.0-32.0); Mean Corpuscular Hgb Conc. 32.9 g/dL (32.0-36.0); Mean Corpuscular Volume 87.5 fL (80.0-100.0); Monocytes # (auto) 0.5 uL; Monocytes % (auto) 7.6 % (0.0-12.0); Neutrophils % (auto) 68.1 % (37.0-80.0); Platelet Count (auto) 260 10^3/uL (140-450); Red Blood Cells 4.07 10^6/uL (4.0-5.20); Red Cell Distribution Width 13.5 % (11.8-14.3); White Blood Cell 5.9 10^3/uL (4.4-10.8)
[2019-01-31 13:40] LABS: Alanine Aminotransferase 31 U/L (13-56); Albumin 3.2 g/dL (3.4-5.0); Anion Gap 10 (5-15); Aspartate Aminotransferase 18 U/L (15-37); BUN/Creatinine Ratio 18.3; Blood Urea Nitrogen 22 mg/dL (7-18); Calcium 8.6 mg/dL (8.5-10.1); Carbon Dioxide 23 mmol/L (21-32); Chloride 103 mmol/L (98-107); GFR African American 58 mL/min; GFR Non-African American 48 mL/min; Glucose 249 mg/dL (74-106); Potassium 4.1 mmol/L (3.5-5.1); Sodium 136 mmol/L (136-145)
[2019-01-31] MEDS ORDERED: HYDROcodone-ACET 5/325MG TAB PO ONE (13:45)
[2019-01-31 13:46] LABS: Alkaline Phosphatase 142 U/L (45-117); Bilirubin, Total 0.3 mg/dL (0.2-1.0)
[2019-01-31 13:52] LABS: INR 1.15 (0.9-1.15); Partial Thromboplastin Time 29.7 sec (23.64-32.05)
[2019-01-31 15:26] LABS: Urine Bacteria NONE SEEN /hpf (None Seen); Urine Blood Negative /uL (Negative); Urine Specific Gravity 1.017 (1.001-1.035); Urine WBC 2 /hpf (0 - 5)
[2019-01-31 16:00] VITALS: BP 132/72
== END 2019-01-31 16:44 | disposition left against medical advice (07) ==
LOC: EDBD 12:12 → ER 12:14
DX: E86.0 Dehydration (principal); E11.65 Type 2 diabetes mellitus with hyperglycemia; I12.9 Hypertensive chronic kidney disease with stage 1 through stage 4 chronic kidney disease, or unspecified chronic kidney disease; E11.22 Type 2 diabetes mellitus with diabetic chronic kidney disease; N18.9 Chronic kidney disease, unspecified; Z90.710 Acquired absence of both cervix and uterus; Z88.0 Allergy status to penicillin; Z88.6 Allergy status to analgesic agent; Z88.8 Allergy status to other drugs, medicaments and biological substances; Z53.29 Procedure and treatment not carried out because of patient's decision for other reasons
CPT/HCPCS: 36415; 71045; 74176; 80053; 81001; 84484; 85025; 85610; 85730; 93005; 96360; 99284; J7030

== ENCOUNTER 2019-02-01 14:13 | Emergency (ER) | payer MEDICAID ==
[~2019-02-01] VITALS: Ht 177.8 cm; Wt 79.4 kg
[2019-02-01 17:15] LABS: Basophils # (auto) 0.1 uL; Basophils % (auto) 1.2 % (0.0-2.0); Eosinophils # (auto) 0.1 uL; Eosinophils % (auto) 1.1 % (0.0-7.0); Hematocrit 34.4 % (36.0-46.0); Hemoglobin 11.6 g/dL (12.2-16.2); Lymphocytes # (auto) 2.1 uL; Lymphocytes % (auto) 29.9 % (10.0-50.0); Mean Corpuscular Hemoglobin 29.2 pg (28.0-32.0); Mean Corpuscular Hgb Conc. 33.8 g/dL (32.0-36.0); Mean Corpuscular Volume 86.4 fL (80.0-100.0); Monocytes # (auto) 0.6 uL; Monocytes % (auto) 8.1 % (0.0-12.0); Neutrophils # (auto) 4.1 uL; Neutrophils % (auto) 59.7 % (37.0-80.0); Nucleated Red Blood Cells % 0.1 %; Platelet Count (auto) 282 10^3/uL (140-450); Red Blood Cells 3.98 10^6/uL (4.0-5.20); Red Cell Distribution Width 13.3 % (11.8-14.3); White Blood Cell 6.9 10^3/uL (4.4-10.8)
[2019-02-01 17:35] LABS: Albumin 3.1 g/dL (3.4-5.0); Calcium 8.4 mg/dL (8.5-10.1); Potassium 4.1 mmol/L (3.5-5.1)
[2019-02-01 17:37] LABS: BUN/Creatinine Ratio 19.5; Bilirubin, Total 0.2 mg/dL (0.2-1.0); Total Protein 6.9 g/dL (6.4-8.2)
[2019-02-01 18:32] VITALS: BP 122/70
[2019-02-01] MEDS ORDERED: ONDANSETRON ODT 4 MG TAB PO ONE (19:30)
[2019-02-01] MEDS ORDERED: HYDROmorphone HCL 2 MG/ML VL IM ONE (19:30)
== END 2019-02-01 21:08 | disposition home or self-care (01) ==
LOC: ER 14:13
DX: E11.65 Type 2 diabetes mellitus with hyperglycemia (principal); E78.5 Hyperlipidemia, unspecified; N18.9 Chronic kidney disease, unspecified; F12.10 Cannabis abuse, uncomplicated; G89.4 Chronic pain syndrome; Z79.899 Other long term (current) drug therapy; Z88.0 Allergy status to penicillin; Z88.8 Allergy status to other drugs, medicaments and biological substances; Z90.710 Acquired absence of both cervix and uterus
CPT/HCPCS: 36415; 80053; 85025; 93005; 96372; 99284; J1170; Q0162

== ENCOUNTER 2019-03-07 15:11 | Inpatient (IN) | payer MEDICAID ==
[~2019-03-07] VITALS: Ht 177.8 cm; Wt 80.2 kg
[2019-03-07] MEDS ORDERED: SODIUM CHLORIDE 0.9% 500 ML IV ONE (16:05)
[2019-03-07] MEDS ORDERED: MORPHINE SULFATE 4 MG/ML SYR/VIAL IV ONE (16:15)
[2019-03-07] MEDS ORDERED: CLINDAMYCIN 600MG IV 50 ML IV ONE (16:15)
[2019-03-07] MEDS ORDERED: ONDANSETRON HCL 4 MG/2 ML VIAL IV ONE (16:15)
[2019-03-07 16:38] LABS: Basophils # (auto) 0 uL; Basophils % (auto) 0.5 % (0.0-2.0); Eosinophils # (auto) 0.1 uL; Eosinophils % (auto) 1.1 % (0.0-7.0); Hematocrit 32.7 % (36.0-46.0); Lymphocytes # (auto) 1.4 uL; Lymphocytes % (auto) 15.9 % (10.0-50.0); Mean Corpuscular Hemoglobin 29.3 pg (28.0-32.0); Mean Corpuscular Hgb Conc. 33.5 g/dL (32.0-36.0); Mean Corpuscular Volume 87.4 fL (80.0-100.0); Monocytes # (auto) 0.7 uL; Monocytes % (auto) 8.6 % (0.0-12.0); Neutrophils # (auto) 6.3 uL; Neutrophils % (auto) 73.9 % (37.0-80.0); Nucleated Red Blood Cells % 0.1 %; Platelet Count (auto) 161 10^3/uL (140-450); Red Blood Cells 3.74 10^6/uL (4.0-5.20); Red Cell Distribution Width 13.4 % (11.8-14.3); White Blood Cell 8.6 10^3/uL (4.4-10.8)
[2019-03-07 16:50] LABS: Albumin 3.3 g/dL (3.4-5.0); Calcium 7.8 mg/dL (8.5-10.1); Potassium 4.5 mmol/L (3.5-5.1)
[2019-03-07 16:54] LABS: BUN/Creatinine Ratio 21.6; Bilirubin, Total 0.4 mg/dL (0.2-1.0); Total Protein 7.1 g/dL (6.4-8.2)
[2019-03-07] MEDS ORDERED: LEVOFLOXACIN 500MG 100 ML IV ONE (20:45)
[2019-03-07] MEDS ORDERED: DEXTROSE (50%) 50ML SYRG IV PRN (20:45)
[2019-03-07] MEDS ORDERED: ACETAMINOPHEN 325 MG TAB PO PRN (20:45)
[2019-03-07] MEDS ORDERED: ONDANSETRON HCL 4 MG/2 ML VIAL IV PRN (20:45)
[2019-03-07] MEDS: HYDROcodone-ACET 5/325MG TAB PO PRN (21:28)
[2019-03-07] MEDS: busPIRone HCL 10 MG TAB PO SCH (22:09)
[2019-03-07] MEDS: ATORVASTATIN 20 MG TAB PO SCH (22:09)
[2019-03-07] MEDS: AMITRIPTYLINE HCL 25 MG TAB PO SCH (22:09)
--- NOTE | 2019-03-07 22:28 | NUR ---
MS admit from ER ANGEL[facility]LL admitted to tele/MS after SBAR received. Patient oriented to MO PHAN, RN primary RN, unit, room, bed, and unit policies regarding patient care and visiting hours. Patient weighed by bedscale and encouraged to call if they need something. All questions and concerns addressed, patient verbalized understanding. Bed is in lowest/locked position with side rails up X's 2 and call light is within reach of patient. Bedside commode at patient's bedside. Educated patient to use call light when in need of ambulating. All wound photos were taken and forms completed. MRSA swab sent to lab. Will continue care.
[2019-03-07 23:08] VITALS: BP 101/63
[2019-03-07] MEDS: TEMAZEPAM 15 MG CAP PO PRN (23:11)
[2019-03-07] MEDS: InsuLIN REG 1unit/0.01ml Soln (100units/ml) SC SCH (23:28)
[2019-03-07] MEDS: ACCU-CHEK COMFORT CURVE STRIP VI SCH (23:28)
[2019-03-07] MEDS: CLINDAMYCIN 600MG IV 50 ML IV SCH (23:28)
[2019-03-08] VITALS (7 sets, daily range): BP systolic 100–130; BP diastolic 55–83
[2019-03-08] MEDS ORDERED: INSLANTI SC (01:27)
[2019-03-08] MEDS ORDERED: GLIP10TA9 PO (01:27)
[2019-03-08] MEDS: HYDROcodone-ACET 5/325MG TAB PO PRN ×4 (01:32→17:46)
[2019-03-08] MEDS: InsuLIN REG 1unit/0.01ml Soln (100units/ml) SC SCH ×3 (05:46→17:47)
[2019-03-08] MEDS: CLINDAMYCIN 600MG IV 50 ML IV SCH ×3 (05:46→21:31)
[2019-03-08] MEDS: ACCU-CHEK COMFORT CURVE STRIP VI SCH ×3 (05:47→17:42)
--- NOTE | 2019-03-08 05:56 | NUR ---
IV insertion IV access obtained, via clean sterile technique by inserting 22 gauge catheter at LEFT FOREARM. IV secured properly. No trauma to site. Patient tolerated well. Removed 22G IV to right AC using clean technique. No trauma noted to site. IV catheter fully intact and applied gauze to site.
[2019-03-08 06:44] LABS: Basophils # (auto) 0 uL; Basophils % (auto) 0.5 % (0.0-2.0); Eosinophils # (auto) 0.1 uL; Eosinophils % (auto) 1.5 % (0.0-7.0); Hematocrit 32.5 % (36.0-46.0); Hemoglobin 10.8 g/dL (12.2-16.2); Lymphocytes # (auto) 2.3 uL; Lymphocytes % (auto) 29.3 % (10.0-50.0); Mean Corpuscular Hemoglobin 29.4 pg (28.0-32.0); Mean Corpuscular Hgb Conc. 33.3 g/dL (32.0-36.0); Mean Corpuscular Volume 88.3 fL (80.0-100.0); Monocytes # (auto) 0.8 uL; Monocytes % (auto) 10.5 % (0.0-12.0); Neutrophils # (auto) 4.6 uL; Neutrophils % (auto) 58.2 % (37.0-80.0); Platelet Count (auto) 154 10^3/uL (140-450); Red Blood Cells 3.68 10^6/uL (4.0-5.20); Red Cell Distribution Width 13.2 % (11.8-14.3); White Blood Cell 7.8 10^3/uL (4.4-10.8)
[2019-03-08 07:15] LABS: BUN/Creatinine Ratio 24.6
[2019-03-08 07:17] LABS: Calcium 8.4 mg/dL (8.5-10.1)
--- NOTE | 2019-03-08 07:35 | NUR ---
Opening Shift Note Assumed care of patient, awake and alert. No S/S of distress/SOB or pain. bed in lowest position, breaks locked, side rails up x2, call light with in reach, bed alarm on. Instructed on POC and to call for assist PRN, will continue to monitor for changes Q1hr and PRN.
[2019-03-08] MEDS ORDERED: LEVOFLOXACIN 250MG 50 ML IV SCH (10:00)
[2019-03-08] MEDS: ENALAPRIL MALEATE 2.5 MG TAB PO SCH (10:00)
[2019-03-08] MEDS: PANTOPRAZOLE 40 MG TAB PO SCH (10:00)
[2019-03-08] MEDS: busPIRone HCL 10 MG TAB PO SCH ×2 (10:11→21:31)
[2019-03-08] MEDS: lamoTRIgine 100 MG TAB PO SCH (10:11)
--- NOTE | 2019-03-08 20:15 | NUR ---
HOSPITALIST DAQUAN Tariq's office has been paged. The patient states that she has been in severe pain all day. She reports that the Jupiter is not alleviating her pain and that she is currently having 10/10 left foot/leg pain.
--- NOTE | 2019-03-08 20:40 | NUR ---
HOSPITALIST PAGED BACK Discussed patient's pain with Dr. Tariq. Order for Morphine 2 mg IV Q4HR PRN has been read back and verified.
[2019-03-08] MEDS: MORPHINE SULF INJ 2 MG/ML SYRINGE 1ML IV PRN (20:59)
[2019-03-08] MEDS: ATORVASTATIN 20 MG TAB PO SCH (21:31)
[2019-03-08] MEDS: AMITRIPTYLINE HCL 25 MG TAB PO SCH (21:31)
[2019-03-08] MEDS: TEMAZEPAM 15 MG CAP PO PRN (21:35)
[2019-03-09] VITALS (7 sets, daily range): BP systolic 107–127; BP diastolic 60–76
[2019-03-09] MEDS: ACCU-CHEK COMFORT CURVE STRIP VI SCH ×4 (00:11→18:24)
[2019-03-09] MEDS: InsuLIN REG 1unit/0.01ml Soln (100units/ml) SC SCH ×4 (00:11→18:25)
[2019-03-09] MEDS: MORPHINE SULF INJ 2 MG/ML SYRINGE 1ML IV PRN ×4 (01:09→18:40)
[2019-03-09 05:37] LABS: Basophils # (auto) 0 uL; Basophils % (auto) 0.5 % (0.0-2.0); Eosinophils # (auto) 0.2 uL; Eosinophils % (auto) 2.3 % (0.0-7.0); Hematocrit 31.7 % (36.0-46.0); Hemoglobin 10.8 g/dL (12.2-16.2); Lymphocytes # (auto) 2.4 uL; Lymphocytes % (auto) 27.9 % (10.0-50.0); Mean Corpuscular Hemoglobin 29.6 pg (28.0-32.0); Mean Corpuscular Hgb Conc. 34.3 g/dL (32.0-36.0); Mean Corpuscular Volume 86.4 fL (80.0-100.0); Monocytes % (auto) 12.2 % (0.0-12.0); Neutrophils # (auto) 4.8 uL; Neutrophils % (auto) 57.1 % (37.0-80.0); Platelet Count (auto) 167 10^3/uL (140-450); Red Blood Cells 3.66 10^6/uL (4.0-5.20); Red Cell Distribution Width 13.1 % (11.8-14.3); White Blood Cell 8.5 10^3/uL (4.4-10.8)
[2019-03-09 05:56] LABS: Albumin 2.8 g/dL (3.4-5.0); Calcium 8.5 mg/dL (8.5-10.1); Potassium 4.1 mmol/L (3.5-5.1)
[2019-03-09 06:00] LABS: Bilirubin, Total 0.3 mg/dL (0.2-1.0); Total Protein 6.5 g/dL (6.4-8.2)
[2019-03-09] MEDS: CLINDAMYCIN 600MG IV 50 ML IV SCH ×3 (06:08→22:11)
--- NOTE | 2019-03-09 06:35 | NUR ---
IV removal IV DC'd with clean sterile technique, catheter fully intact. Pressure dressing applied to site. Patient tolerated well.
--- NOTE | 2019-03-09 06:40 | NUR ---
IV insertion IV access obtained, via clean sterile technique by inserting 20 gauge catheter at right wrist after 2 attempt(s). IV secured properly. No trauma to site. Patient tolerated well.
--- NOTE | 2019-03-09 07:50 | NUR ---
Opening Shift Note Assumed care of patient, awake and alert x4. No S/S of distress/SOB. Patient c/o left foot pain 11/12. Will medicate as prescribed by MD. Bed at lowest locked position, bed side rails up x2 and call light within reach. Instructed on POC and to call for assist PRN, will continue to monitor for changes Q1hr and PRN.
[2019-03-09] MEDS: PANTOPRAZOLE 40 MG TAB PO SCH (09:38)
[2019-03-09] MEDS: LEVOFLOXACIN 500MG 100 ML IV SCH (09:38)
[2019-03-09] MEDS: busPIRone HCL 10 MG TAB PO SCH ×2 (09:38→22:11)
[2019-03-09] MEDS: lamoTRIgine 100 MG TAB PO SCH (09:39)
[2019-03-09] MEDS: ENALAPRIL MALEATE 2.5 MG TAB PO SCH (10:00)
[2019-03-09] MEDS: metFORMIN HYDROCHLORIDE 500 MG TAB PO SCH (18:24)
--- NOTE | 2019-03-09 19:30 | NUR ---
Opening Shift Note Assumed care of patient, awake and alert. No S/S of distress/SOB or pain at this time. Instructed on POC and to call for assist PRN, will continue to monitor for changes Q1hr and PRN. Bed locked in low position. L ankle ranges from 1 - 3+ erythema on medial aspect with dry [id number] to post lat area. Call light within pt's reach.
--- NOTE | 2019-03-09 19:39 | NUR ---
End of shift note Endorsed are to Sarika ROYAL.
--- NOTE | 2019-03-09 20:40 | NUR ---
RN entered room per pt request / to belief that redness on medial L ankle/foot is spreading anteriorly and more on plantar surface. This RN marked area with black marker. Pt expressing displeasure that she has not been getting neurontin and latuda as she takes them at home. With pt's permission, these two meds written on dry erase board to help her remember to ask her MD when they come in. Pt VU and agreement with plan.
[2019-03-09] MEDS: INSULIN LANTUS (GLARGINE) 1 /0.01ml (100units/ml) SC SCH (22:09)
[2019-03-09] MEDS: AMITRIPTYLINE HCL 25 MG TAB PO SCH (22:11)
[2019-03-09] MEDS: ATORVASTATIN 20 MG TAB PO SCH (22:12)
[2019-03-10] MEDS: MORPHINE SULF INJ 2 MG/ML SYRINGE 1ML IV PRN ×4 (00:33→18:43)
[2019-03-10] MEDS: TEMAZEPAM 15 MG CAP PO PRN ×2 (00:33→22:23)
[2019-03-10] MEDS: ACCU-CHEK COMFORT CURVE STRIP VI SCH ×4 (00:34→17:37)
[2019-03-10] MEDS: InsuLIN REG 1unit/0.01ml Soln (100units/ml) SC SCH ×4 (00:47→17:37)
[2019-03-10 05:15] VITALS: BP 100/59
[2019-03-10] MEDS: CLINDAMYCIN 600MG IV 50 ML IV SCH ×3 (06:45→22:22)
[2019-03-10 07:21] LABS: Basophils # (auto) 0.1 uL; Basophils % (auto) 0.7 % (0.0-2.0); Eosinophils # (auto) 0.2 uL; Eosinophils % (auto) 3.1 % (0.0-7.0); Hematocrit 34.4 % (36.0-46.0); Hemoglobin 11.6 g/dL (12.2-16.2); Lymphocytes # (auto) 2.2 uL; Lymphocytes % (auto) 28.2 % (10.0-50.0); Mean Corpuscular Hemoglobin 29.1 pg (28.0-32.0); Mean Corpuscular Hgb Conc. 33.6 g/dL (32.0-36.0); Mean Corpuscular Volume 86.8 fL (80.0-100.0); Monocytes # (auto) 0.9 uL; Monocytes % (auto) 11.2 % (0.0-12.0); Neutrophils # (auto) 4.5 uL; Neutrophils % (auto) 56.8 % (37.0-80.0); Nucleated Red Blood Cells % 0.1 %; Platelet Count (auto) 178 10^3/uL (140-450); Red Blood Cells 3.97 10^6/uL (4.0-5.20); Red Cell Distribution Width 13.3 % (11.8-14.3); White Blood Cell 7.8 10^3/uL (4.4-10.8)
[2019-03-10 07:33] LABS: Albumin 2.8 g/dL (3.4-5.0); BUN/Creatinine Ratio 15.9; Calcium 8.9 mg/dL (8.5-10.1); Potassium 4.1 mmol/L (3.5-5.1)
[2019-03-10 07:36] LABS: Bilirubin, Total 0.2 mg/dL (0.2-1.0); Total Protein 6.8 g/dL (6.4-8.2)
[2019-03-10] MEDS: LEVOFLOXACIN 500MG 100 ML IV SCH (08:43)
[2019-03-10] MEDS: metFORMIN HYDROCHLORIDE 500 MG TAB PO SCH ×2 (08:43→17:36)
[2019-03-10] MEDS: lamoTRIgine 100 MG TAB PO SCH (08:48)
[2019-03-10] MEDS: PANTOPRAZOLE 40 MG TAB PO SCH (08:48)
[2019-03-10] MEDS: busPIRone HCL 10 MG TAB PO SCH ×2 (08:48→22:22)
[2019-03-10 09:00] VITALS: BP 104/66
[2019-03-10] MEDS: ENALAPRIL MALEATE 2.5 MG TAB PO SCH (10:00)
[2019-03-10 13:00] VITALS: BP 147/79
--- NOTE | 2019-03-10 14:09 | NUR ---
IV ACCESS INFILTRATED, NEW IV ACCESS PLACED ON RIGHT HAND 24 G.
[2019-03-10 18:25] VITALS: BP 124/76
--- NOTE | 2019-03-10 19:00 | NUR ---
Opening Shift Note Assumed care of patient, awake and alert. No S/S of distress/SOB or pain. Safety measures in place bed in lowest position, side rails x2 up, and call light within reach. Instructed on POC and to call for assist PRN, will continue to monitor for changes Q1hr and PRN.
[2019-03-10 22:00] VITALS: BP 130/66
[2019-03-10] MEDS: ATORVASTATIN 20 MG TAB PO SCH (22:22)
[2019-03-10] MEDS: AMITRIPTYLINE HCL 25 MG TAB PO SCH (22:22)
[2019-03-10] MEDS: INSULIN LANTUS (GLARGINE) 1 /0.01ml (100units/ml) SC SCH (22:30)
[2019-03-11] MEDS: InsuLIN REG 1unit/0.01ml Soln (100units/ml) SC SCH ×5 (00:08→23:47)
[2019-03-11] MEDS: ACCU-CHEK COMFORT CURVE STRIP VI SCH ×5 (00:08→23:47)
[2019-03-11] MEDS: MORPHINE SULF INJ 2 MG/ML SYRINGE 1ML IV PRN ×4 (00:09→20:24)
[2019-03-11 05:25] VITALS: BP 118/71
[2019-03-11] MEDS: CLINDAMYCIN 600MG IV 50 ML IV SCH (06:10)
[2019-03-11 06:27] LABS: Basophils # (auto) 0.1 uL; Basophils % (auto) 0.7 % (0.0-2.0); Eosinophils # (auto) 0.2 uL; Eosinophils % (auto) 3.5 % (0.0-7.0); Hematocrit 33.3 % (36.0-46.0); Hemoglobin 11.2 g/dL (12.2-16.2); Lymphocytes # (auto) 2.5 uL; Lymphocytes % (auto) 36.2 % (10.0-50.0); Mean Corpuscular Hemoglobin 29.1 pg (28.0-32.0); Mean Corpuscular Hgb Conc. 33.7 g/dL (32.0-36.0); Mean Corpuscular Volume 86.4 fL (80.0-100.0); Monocytes # (auto) 0.9 uL; Monocytes % (auto) 12.3 % (0.0-12.0); Neutrophils # (auto) 3.3 uL; Neutrophils % (auto) 47.3 % (37.0-80.0); Platelet Count (auto) 175 10^3/uL (140-450); Red Blood Cells 3.86 10^6/uL (4.0-5.20)
[2019-03-11 06:54] LABS: Alanine Aminotransferase 16 U/L (13-56); Albumin 2.7 g/dL (3.4-5.0); Anion Gap 11 (5-15); Aspartate Aminotransferase 17 U/L (15-37); BUN/Creatinine Ratio 14.2; Blood Urea Nitrogen 18 mg/dL (7-18); Calcium 8.4 mg/dL (8.5-10.1); Carbon Dioxide 21 mmol/L (21-32); Chloride 107 mmol/L (98-107); GFR African American 54 mL/min; GFR Non-African American 45 mL/min; Glucose 131 mg/dL (74-106); Potassium 4.1 mmol/L (3.5-5.1); Sodium 139 mmol/L (136-145)
[2019-03-11 06:56] LABS: Alkaline Phosphatase 104 U/L (45-117); Bilirubin, Total 0.3 mg/dL (0.2-1.0); Total Protein 6.1 g/dL (6.4-8.2)
[2019-03-11] MEDS: metFORMIN HYDROCHLORIDE 500 MG TAB PO SCH ×2 (08:07→17:45)
[2019-03-11 09:00] VITALS: BP 100/69
[2019-03-11] MEDS: LEVOFLOXACIN 500MG 100 ML IV SCH (09:12)
[2019-03-11] MEDS: PANTOPRAZOLE 40 MG TAB PO SCH (09:13)
[2019-03-11] MEDS: lamoTRIgine 100 MG TAB PO SCH (09:13)
[2019-03-11] MEDS: busPIRone HCL 10 MG TAB PO SCH ×2 (09:13→21:33)
[2019-03-11] MEDS: ENALAPRIL MALEATE 2.5 MG TAB PO SCH (09:30)
--- NOTE | 2019-03-11 10:40 | NUR ---
CALLED DR MERRILL [facility], INFO ON CONSULT GIVEN TO HIS REGULATORY MANAGER AND SHE SAID DR MERRILL STILL IN CLINIC SEEING PATIENTS.
--- NOTE | 2019-03-11 12:07 | NUR ---
DR MERRILL AT BEDSIDE, SEEN AND EXAMINED LEFT FOOT.
[2019-03-11 13:00] VITALS: BP 112/71
--- NOTE | 2019-03-11 13:21 | NUR ---
CALL RECEIVED FROM DR COOK WITH ORDERS TO DC LEVAQUIN IV AND CLYNDAMYCIN IV AND START PATIENT ON ZYVOX 600 MG TAB BID FOR VRE IN URINE. ORDER ENTERED AND CARRIED OUT.
--- NOTE | 2019-03-11 14:02 | NUR ---
Nutrition Assessment Notes please see attached link for complete assessment Est. Needs BW 80 [id number] kcal (25-30kcal/kgBW), 64-80gms pro (0.8-1.0 gms/kgBW r/t elev RFT CKD). Will continue to monitor pertinent labs and reassess nutrient need prn Addendum: 03/11/19 at [address] Amended: Links added.
[2019-03-11] MEDS: LINEZOLID 600MG TABLET PO SCH ×2 (14:48→21:34)
[2019-03-11 17:00] VITALS: BP 133/90
--- NOTE | 2019-03-11 19:45 | NUR ---
OPENING SHIFT NOTE RECEIVED REPORT FROM DAYSHIFT RN. PATIENT LYING IN BED WATCHING TELEVISION. NO S/S OF DISTRESS OR SOB. NO PAIN NOTED OR REPORTED. CONTACT ISOLATION PRECAUTIONS IN PLACE. PATIENT A/O X4, AMBULATORY. UPDATED PATIENT ON POC, VERBALIZED UNDERSTANDING. BED LOCKED IN LOW POSITION, CALL LIGHT WITHIN REACH. WILL CONTINUE TO MONITOR PATIENT Q1HR AND PRN.
[2019-03-11] MEDS: AMITRIPTYLINE HCL 25 MG TAB PO SCH (21:33)
[2019-03-11] MEDS: ATORVASTATIN 20 MG TAB PO SCH (21:33)
[2019-03-11] MEDS: TEMAZEPAM 15 MG CAP PO PRN (21:34)
[2019-03-11] MEDS: INSULIN LANTUS (GLARGINE) 1 /0.01ml (100units/ml) SC SCH (21:34)
[2019-03-11 21:46] VITALS: BP 116/69
[2019-03-12 05:08] VITALS: BP 114/72
[2019-03-12] MEDS: ACCU-CHEK COMFORT CURVE STRIP VI SCH ×4 (05:32→23:27)
[2019-03-12] MEDS: InsuLIN REG 1unit/0.01ml Soln (100units/ml) SC SCH ×4 (05:33→23:27)
[2019-03-12] MEDS: MORPHINE SULF INJ 2 MG/ML SYRINGE 1ML IV PRN (06:17)
[2019-03-12 07:37] LABS: BUN/Creatinine Ratio 16.4; Calcium 8.7 mg/dL (8.5-10.1)
[2019-03-12] MEDS: metFORMIN HYDROCHLORIDE 500 MG TAB PO SCH ×2 (08:13→17:14)
[2019-03-12 08:50] VITALS: BP 108/63
[2019-03-12] MEDS: LINEZOLID 600MG TABLET PO SCH ×2 (09:51→21:30)
[2019-03-12] MEDS: lamoTRIgine 100 MG TAB PO SCH (09:51)
[2019-03-12] MEDS: PANTOPRAZOLE 40 MG TAB PO SCH (09:51)
[2019-03-12] MEDS: busPIRone HCL 10 MG TAB PO SCH ×2 (09:51→21:29)
[2019-03-12] MEDS: ENALAPRIL MALEATE 2.5 MG TAB PO SCH (09:52)
[2019-03-12 10:43] LABS: Basophils # (auto) 0.1 uL; Basophils % (auto) 0.9 % (0.0-2.0); Eosinophils # (auto) 0.2 uL; Eosinophils % (auto) 2.3 % (0.0-7.0); Hematocrit 33.7 % (36.0-46.0); Hemoglobin 11.2 g/dL (12.2-16.2); Lymphocytes # (auto) 2.4 uL; Lymphocytes % (auto) 30.9 % (10.0-50.0); Mean Corpuscular Hemoglobin 29.1 pg (28.0-32.0); Mean Corpuscular Hgb Conc. 33.3 g/dL (32.0-36.0); Mean Corpuscular Volume 87.3 fL (80.0-100.0); Monocytes % (auto) 12.9 % (0.0-12.0); Neutrophils # (auto) 4.1 uL; Platelet Count (auto) 175 10^3/uL (140-450); Red Blood Cells 3.86 10^6/uL (4.0-5.20); Red Cell Distribution Width 13.1 % (11.8-14.3); White Blood Cell 7.7 10^3/uL (4.4-10.8)
[2019-03-12 10:52] LABS: Alanine Aminotransferase 17 U/L (13-56); Albumin 2.6 g/dL (3.4-5.0); Aspartate Aminotransferase 13 U/L (15-37); Bilirubin, Direct < 0.1 mg/dL (0-0.2)
[2019-03-12 10:55] LABS: Alkaline Phosphatase 106 U/L (45-117); Bilirubin, Total 0.3 mg/dL (0.2-1.0); Total Protein 6.8 g/dL (6.4-8.2)
--- NOTE | 2019-03-12 12:09 | NUR ---
D/C Planning Per SS consult for wound care. Advised GENNY Leonard to contact Dr. Tariq regarding consult clarification for wound care.
[2019-03-12 12:35] VITALS: BP 128/77
--- NOTE | 2019-03-12 13:59 | NUR ---
DRESSING CHANGED ON LEFT FOOT PER DR MERRILL NOTES. LEFT FOOT HEEL AREA HAS ERYTHEMA, INCISION SITE FOR DEBRIDMENT BY DR MERRILL YESTERDAY IS INTACT, NO DISCHARGE NOTED. PART OF HEEL IS HARD TO TOUCH. HOME HEALTH FOR WOUND CARE NOT APPROPRIATE, SITE IS INTACT NO DRAINAGE NOTED. WILL NOTIFY DR COOK
[2019-03-12 15:39] VITALS: BP 128/78
[2019-03-12] MEDS: HYDROcodone-ACET 5/325MG TAB PO PRN ×2 (15:47→23:27)
--- NOTE | 2019-03-12 17:07 | NUR ---
DR COOK CALLED CALLED BACK, INFORMED HIN THAT PATIENT DOES NOT NEED HOME HEALTH FOR WOUND CARE BECAUSE LEFT FOOT DOES NOT HAVE WOUND, ONLY ERYTHEMA, SKIN IS INTACT. SS TO ARRANGE HH FOR WOUND CARE CANCELLED PER DR COOK.
--- NOTE | 2019-03-12 18:45 | NUR ---
Fall precautions note Patient assessed and determined to be fall risk. Fall precautions in place, including side bedrails up X 2, bed alarms on, fall risk wristband in place. Patient instructed to call staff regarding any needs involving getting out of bed or bathroom needs. Patient verbalized understanding. NOTE: PATIENT COMPLAINED OF DIFFICULTY WALKING MID MORNING, PATIENT ADVISED TO BRING OWN WALKER SO STAFF CAN CHECK HER WALKING STATUS, PATIENT CAME THIS MORNING AND PER THEM WALKER IS IN HIS TRUCK AND WAD ADVISED TO BRING IT UP HERE BUT PATIENT SAID "HE'LL BRING IT TOMORROW MORNING". PATIENT HAS BEEN INDEPENDENT IN GETTING OUT OF BED TO BEDSIDE COMMODE, ABLE TO SIT AND DANGLE ON EDGE OF BED MOST OF THE TIME, THER ARE TIMES THAT SHE WILL ASK FOR ASSISTANCE SAYING SHE CAN'T DO IT. INFORMED PATIENT TO CALL BEFORE ATTEMPTING TO GET OUT OF BED FOR SAFETY, VERBALIZED UNDERSTANDING.
[2019-03-12 21:01] VITALS: BP 110/70
[2019-03-12] MEDS: ATORVASTATIN 20 MG TAB PO SCH (21:29)
[2019-03-12] MEDS: AMITRIPTYLINE HCL 25 MG TAB PO SCH (21:29)
[2019-03-12] MEDS: TEMAZEPAM 15 MG CAP PO PRN (21:30)
[2019-03-12] MEDS: INSULIN LANTUS (GLARGINE) 1 /0.01ml (100units/ml) SC SCH (22:17)
[2019-03-13 05:07] VITALS: BP 105/54
[2019-03-13] MEDS: InsuLIN REG 1unit/0.01ml Soln (100units/ml) SC SCH ×2 (05:34→12:18)
[2019-03-13] MEDS: ACCU-CHEK COMFORT CURVE STRIP VI SCH ×2 (05:34→12:19)
--- NOTE | 2019-03-13 07:30 | NUR ---
Opening Shift Note Assumed care of patient, awake and alert. No S/S of distress/SOB or pain on room air. Instructed on POC and to call for assist PRN, will continue to monitor for changes Q1hr and PRN. Bed in low and locked position, rails up x2, no-slip socks on. Patient assessed and determined to be fall risk. Patient instructed to call staff regarding any needs involving getting out of bed or bathroom needs. Patient verbalized understanding.
[2019-03-13] MEDS: HYDROcodone-ACET 5/325MG TAB PO PRN (08:11)
[2019-03-13] MEDS: metFORMIN HYDROCHLORIDE 500 MG TAB PO SCH (08:11)
[2019-03-13 09:00] VITALS: BP 85/49
[2019-03-13] MEDS: PANTOPRAZOLE 40 MG TAB PO SCH (09:58)
[2019-03-13] MEDS: lamoTRIgine 100 MG TAB PO SCH (09:58)
[2019-03-13] MEDS: busPIRone HCL 10 MG TAB PO SCH (09:58)
[2019-03-13] MEDS: LINEZOLID 600MG TABLET PO SCH (09:58)
[2019-03-13] MEDS: ENALAPRIL MALEATE 2.5 MG TAB PO SCH (10:00)
[2019-03-13 11:20] VITALS: BP 112/66
--- NOTE | 2019-03-13 12:45 | NUR ---
DR COOK AT BEDSIDE ORDERS FOR DISCHARGE
[2019-03-13 13:00] VITALS: BP 109/63
--- NOTE | 2019-03-13 14:00 | NUR ---
DRESSING CHANGE PERFORMED REMOVED OLD DRESSING, NO DRAINAGE NOTED ON OLD BANDAGE, CLEANSED AREA WITH NS AND PAT DRY, SURGICAL/INCISION WOUND BED INTACT WITH HARDENED SKIN SURROUNDING. DRY 4X4 GAUZE AND KERLEX SECURED WITH TAPE, PATIENT TOLERATED IT WELL.
--- NOTE | 2019-03-13 14:20 | NUR ---
DISCHARGE Discharge instructions given as ordered. Encourage to follow up with PMD as instructed. All questions and concerns addressed. Patient verbalized understanding. Medication reconciliation form completed and copy given to patient. IV removed with catheter intact, pressure dressing applied. Patient taken to vehicle via wheelchair with all personal belongings, accompanied by staff and family member. No distress noted at time of departure.
== END 2019-03-13 14:20 | disposition home or self-care (01) | DRG 361 ==
LOC: ER 15:18 → OVERFLOW 15:19 → CENTRAL 22:28
PROVIDERS: ADMIT Nurse Practitioner; ATTEND Internal Medicine
PROC: 0HBNXZZ Excision of Left Foot Skin, External Approach (ICD-10-PCS; principal; 2019-03-11)
DX: L03.116 Cellulitis of left lower limb (principal); E43 Unspecified severe protein-calorie malnutrition; N17.9 Acute kidney failure, unspecified; E11.22 Type 2 diabetes mellitus with diabetic chronic kidney disease; E11.40 Type 2 diabetes mellitus with diabetic neuropathy, unspecified; N18.3 Chronic kidney disease, stage 3 (moderate); E11.65 Type 2 diabetes mellitus with hyperglycemia; W22.8XXA Striking against or struck by other objects, initial encounter; E78.5 Hyperlipidemia, unspecified; I12.9 Hypertensive chronic kidney disease with stage 1 through stage 4 chronic kidney disease, or unspecified chronic kidney disease; F41.9 Anxiety disorder, unspecified; F12.90 Cannabis use, unspecified, uncomplicated; B95.2 Enterococcus as the cause of diseases classified elsewhere; Z16.21 Resistance to vancomycin; F31.30 Bipolar disorder, current episode depressed, mild or moderate severity, unspecified; D64.9 Anemia, unspecified; Z88.0 Allergy status to penicillin; Z90.710 Acquired absence of both cervix and uterus; Z88.8 Allergy status to other drugs, medicaments and biological substances; Z87.440 Personal history of urinary (tract) infections; Z80.9 Family history of malignant neoplasm, unspecified; Z83.3 Family history of diabetes mellitus; Z82.49 Family history of ischemic heart disease and other diseases of the circulatory system; Z91.14 Patient's other noncompliance with medication regimen; Z79.899 Other long term (current) drug therapy; Z68.25 Body mass index [BMI] 25.0-25.9, adult
CPT/HCPCS: 36415; 73700; 80048; 80053; 80076; 82962; 83605; 85025; 87040; 87081; 94761; 96365; 96367; 96375; G0378; J1815; J1956; J2405; J3490

== ENCOUNTER 2019-08-10 05:41 | Inpatient (IN) | payer MEDICAID ==
[~2019-08-10] VITALS: Ht 182.9 cm; Wt 75.3 kg
[~2019-08-10 05:41] MED LIST changes: +BACL10TA PO; -DOCU1CAP PO; -ENAL2.5T PO; -ESOM20CA PO; +GLIP10TA9 PO; -GLIP5TAB12 PO; +INSLANTI SC; -LINA290C OR; -MAGN400C2 PO; -MORP60TA25 PO; +NAPR375T27 PO
[2019-08-10] MEDS ORDERED: SODIUM CHLORIDE 0.9% 1,000 ML IV ONE (06:52)
[2019-08-10] MEDS ORDERED: KETOROLAC TROMETH 15 mg/ml 1ML VL IV ONE (07:00)
[2019-08-10 08:25] LABS: Basophils # (auto) 0.1 10 ^3/uL (0-0.2); Basophils % (auto) 1.5 % (0.0-2.0); Eosinophils # (auto) 0.2 10 ^3/uL (0-0.8); Eosinophils % (auto) 2.3 % (0.0-7.0); Hematocrit 28.5 % (36.0-46.0); Hemoglobin 9.5 g/dL (12.2-16.2); Lymphocytes # (auto) 1.2 10 ^3/uL (0.4-5.4); Lymphocytes % (auto) 16.5 % (10.0-50.0); Mean Corpuscular Hemoglobin 29.8 pg (28.0-32.0); Mean Corpuscular Hgb Conc. 33.2 g/dL (32.0-36.0); Mean Corpuscular Volume 89.7 fL (80.0-100.0); Monocytes # (auto) 0.5 10 ^3/uL (0-1.3); Monocytes % (auto) 6.9 % (0.0-12.0); Neutrophils # (auto) 5.3 10 ^3/uL (1.6-8.6); Neutrophils % (auto) 72.8 % (37.0-80.0); Platelet Count (auto) 235 10^3/uL (140-450); Red Blood Cells 3.17 10^6/uL (4.0-5.20); Red Cell Distribution Width 13.9 % (11.8-14.3); White Blood Cell 7.3 10^3/uL (4.4-10.8)
[2019-08-10 08:40] LABS: Albumin 3.1 g/dL (3.4-5.0); BUN/Creatinine Ratio 25.5; Calcium 8.7 mg/dL (8.5-10.1)
[2019-08-10 08:41] LABS: Urine Bacteria NONE SEEN /hpf (None Seen); Urine Blood Negative /uL (Negative); Urine Budding Yeast MANY /hpf (None Seen); Urine Specific Gravity 1.013 (1.001-1.035); Urine WBC 5 /hpf (0 - 5)
[2019-08-10 08:44] LABS: Bilirubin, Total 0.4 mg/dL (0.2-1.0); Total Protein 7.3 g/dL (6.4-8.2)
[2019-08-10] MEDS ORDERED: InsuLIN REG 1unit/0.01ml Soln (100units/ml) IV ONE (12:45)
[2019-08-10] MEDS ORDERED: METOCLOPRAMIDE HCL 5MG/ml INJ 2ml VIAL IV PRN (18:15)
[2019-08-10] MEDS ORDERED: DEXTROSE (50%) 50ML SYRG IV PRN (18:15)
[2019-08-10] MEDS ORDERED: NITROGLYCERIN 0.4 MG SL TAB SL PRN (18:15)
[2019-08-10] MEDS ORDERED: MORPHINE SULF INJ 2 MG/ML SYRINGE 1ML IV PRN (18:15)
[2019-08-10] MEDS ORDERED: traMADol HCL 50 MG TAB PO PRN (18:15)
[2019-08-10] MEDS: ENOXAPARIN SOD 40 MG/0.4 ML SYRINGE SC SCH (18:59)
[2019-08-10] MEDS: FAMOTIDINE 20 MG TAB PO SCH (18:59)
--- NOTE | 2019-08-10 19:10 | NUR ---
IV insertion IV access obtained, via clean sterile technique by inserting 22 gauge catheter at Right hand after 2 attempts. IV secured properly. No trauma to site. Patient tolerated well. Addendum: 08/10/19 at 2302 by LICHA DELGADO RN RN TIME CORRECTION: INSERTED AT 2019.
[2019-08-10] MEDS: SODIUM CHLORIDE 0.9% 1,000 ML IV ONE ×2 (19:20→20:30)
--- NOTE | 2019-08-10 20:10 | NUR ---
MS admit from [facility] Y[facility] admitted to [facility]. Patient oriented to LICHA DELGADO RN primary RN, unit, room, bed, and unit policies regarding patient care and visiting hours. Patient weighed by bedscale and encouraged to call if she needs something. All questions and concerns addressed, patient verbalized understanding and in agreement. Fall and safety precautions in place. Call light within reach and able to use. Will continue to monitor q1h and prn.
--- NOTE | 2019-08-10 21:04 | NUR ---
DR COOK PAGED PATIENT COMPLAINING OF 10/10 PAIN USING ADULT SCALE. PATIENT SAYS THAT PAIN MEDICATION AVAILABLE DOES NOT WORK AND NEEDS SOMETHING STRONGER. PATIENT PAIN OPTIONS AVAILABLE DISCUSSED AND PATIENT STATES SHE NEEDS STRONGER PAIN RELIEF. DR. COOK CALLED. VOICEMAIL LEFT. AWAITING CALL BACK. WILL CONTINUE TO MONITOR PATIENT.
[2019-08-10] MEDS: LACTULOSE 20Gm/30ML SOLN PO SCH (21:53)
[2019-08-10] MEDS: AMITRIPTYLINE HCL 25 MG TAB PO SCH (21:57)
[2019-08-10] MEDS: ATORVASTATIN 20 MG TAB PO SCH (21:57)
[2019-08-10] MEDS: MIRTAZAPINE 30 MG TAB PO SCH (21:58)
[2019-08-10] MEDS: InsuLIN REG 1unit/0.01ml Soln (100units/ml) SC SCH (21:59)
[2019-08-10 22:00] VITALS: BP 129/75
[2019-08-10] MEDS: ACCU-CHEK COMFORT CURVE STRIP VI SCH (22:00)
[2019-08-10] MEDS: INSULIN LANTUS (GLARGINE) 1 /0.01ml (100units/ml) SC SCH (22:00)
--- NOTE | 2019-08-10 22:00 | NUR ---
medications at bedside patient brought in medications from home. patient educated that medications are not allowed to be at bedside. patient states she will have her contact take them back home in the morning. will continue to monitor.
--- NOTE | 2019-08-11 04:20 | NUR ---
PATIENT GIVEN HEAT PACKS FOR PAIN. WILL CONTINUE TO MONITOR. STILL AWAITING CALL BACK FROM DR. COOK FOR PAIN MANAGEMENT.
--- NOTE | 2019-08-11 04:35 | NUR ---
DR COOK PAGED PATIENT COMPLAINING OF SEVERE PAIN TO BACK AND GENERALIZED BODY. PATIENT HAS NO AVAILABLE PAIN MEDICATION THAT IS EFFECTIVE FOR PATIENT. LEFT VOICEMAIL. AWAITING CALL BACK.
[2019-08-11 05:24] VITALS: BP 109/60
--- NOTE | 2019-08-11 05:25 | NUR ---
PATIENT GIVEN MORE HEAT PACKS FOR PAIN. WILL CONTINUE TO MONITOR. STILL AWAITING CALL BACK FROM DR. COOK FOR PAIN MANAGEMENT.
[2019-08-11] MEDS: ACCU-CHEK COMFORT CURVE STRIP VI SCH ×4 (06:14→21:53)
[2019-08-11] MEDS: InsuLIN REG 1unit/0.01ml Soln (100units/ml) SC SCH ×4 (06:15→21:55)
--- NOTE | 2019-08-11 06:20 | NUR ---
MRSA SWAB SENT MRSA SWAB SENT TO LAB
[2019-08-11 06:32] LABS: Basophils # (auto) 0.1 10 ^3/uL (0-0.2); Basophils % (auto) 1.4 % (0.0-2.0); Eosinophils # (auto) 0.2 10 ^3/uL (0-0.8); Eosinophils % (auto) 3.1 % (0.0-7.0); Hematocrit 27.6 % (36.0-46.0); Hemoglobin 8.9 g/dL (12.2-16.2); Lymphocytes # (auto) 2.2 10 ^3/uL (0.4-5.4); Lymphocytes % (auto) 32.8 % (10.0-50.0); Mean Corpuscular Hemoglobin 29.3 pg (28.0-32.0); Mean Corpuscular Hgb Conc. 32.4 g/dL (32.0-36.0); Mean Corpuscular Volume 90.4 fL (80.0-100.0); Monocytes # (auto) 0.7 10 ^3/uL (0-1.3); Monocytes % (auto) 10.8 % (0.0-12.0); Neutrophils # (auto) 3.4 10 ^3/uL (1.6-8.6); Neutrophils % (auto) 51.9 % (37.0-80.0); Nucleated Red Blood Cells % 0.1 %; Platelet Count (auto) 244 10^3/uL (140-450); Red Blood Cells 3.05 10^6/uL (4.0-5.20); Red Cell Distribution Width 14.2 % (11.8-14.3); White Blood Cell 6.6 10^3/uL (4.4-10.8)
[2019-08-11 06:52] LABS: BUN/Creatinine Ratio 21.2; Calcium 8.9 mg/dL (8.5-10.1); Potassium 4.1 mmol/L (3.5-5.1)
--- NOTE | 2019-08-11 07:05 | NUR ---
Patient continues to be in acute pain on left lower back. Patient states it is a 10/10 using adult scale and feels stabbing in nature. Patient offered to be repositioned and offered what else might help her be relieved of pain, including heat packs. Patient does not want any alternative options for pain relief. Patient says that pain medication given (see emar) did not help relieve her pain much. Did not receive any call back to notify MD. Day shift nurse made aware of attempts made to notify doctor Marciano. Morning report given at this time.
--- NOTE | 2019-08-11 07:30 | NUR ---
Opening Shift Note Assumed care of patient, awake and alert. No S/S of distress/SOB or pain. Instructed on POC and to call for assist PRN, will continue to monitor for changes Q1hr and PRN.
[2019-08-11 08:00] VITALS: BP 99/54
[2019-08-11 09:00] VITALS: BP 99/54
--- NOTE | 2019-08-11 09:00 | NUR ---
PATIENT ACCIDENTALLY PULLED IV OUT BECAUSE SHE GOT CAUGHT UP IN HER IV LINE WHILE TRANSFERRING FROM THE BED TO THE CHAIR. IV CATHETER INTACT.
[2019-08-11] MEDS: FAMOTIDINE 20 MG TAB PO SCH (09:44)
[2019-08-11] MEDS: POLYETHYLENE GLYCOL 17 GM PWDR PO SCH (09:45)
[2019-08-11] MEDS: ENOXAPARIN SOD 40 MG/0.4 ML SYRINGE SC SCH (09:45)
[2019-08-11] MEDS: LACTULOSE 20Gm/30ML SOLN PO SCH ×2 (09:45→21:52)
[2019-08-11] MEDS ORDERED: cefTRIAXone 1GM/50ML D5W 50 ML IV ONE (12:15)
[2019-08-11 13:00] VITALS: BP 126/66
--- NOTE | 2019-08-11 14:30 | NUR ---
IV insertion IV access obtained, via clean sterile technique by inserting 22 gauge catheter at right wrist after 2 attempt(s). IV secured properly. No trauma to site. Patient tolerated well.
[2019-08-11] MEDS: KETOROLAC TROMETH 15 mg/ml 1ML VL IV PRN ×2 (14:53→23:10)
[2019-08-11 17:00] VITALS: BP 139/74
--- NOTE | 2019-08-11 19:35 | NUR ---
Opening Shift Note Assumed care of patient, awake and alert. No S/S of distress/SOB. Instructed on POC and to call for assist PRN, patient verbalized understanding and in agreement. Fall and safety precautions in place. Call light within reach and able to use. Will continue to monitor for changes Q1hr and PRN.
[2019-08-11 20:00] VITALS: BP 126/81
[2019-08-11] MEDS: INSULIN LANTUS (GLARGINE) 1 /0.01ml (100units/ml) SC SCH (21:52)
[2019-08-11] MEDS: AMITRIPTYLINE HCL 25 MG TAB PO SCH (21:52)
[2019-08-11] MEDS: ATORVASTATIN 20 MG TAB PO SCH (21:52)
[2019-08-11] MEDS: MIRTAZAPINE 30 MG TAB PO SCH (21:52)
--- NOTE | 2019-08-11 22:55 | NUR ---
IV removal IV DC'd with clean sterile technique, catheter fully intact. Pressure dressing applied to site. Patient tolerated well.
--- NOTE | 2019-08-11 23:00 | NUR ---
PHOTO OF TOE WOUND PHOTO TAKEN OF RIGHT TOE PRESENT ON ADMISSION. CAMERA RETURNED TO [facility]. WILL CONTINUE TO MONITOR.
--- NOTE | 2019-08-11 23:05 | NUR ---
IV insertion IV access obtained, via clean sterile technique by inserting 22 gauge catheter at LEFT HAND at one attempt. IV secured properly. No trauma to site. Patient tolerated well.
--- NOTE | 2019-08-11 23:10 | NUR ---
Pain assessment Patient complaining of recently acute 10/10 (using adult scale) pain to mid-lower back mainly on left side which feels pulsating to patient. Patient states she wanted pain medication at this time (see emar). Will continue to monitor.
[2019-08-12] VITALS (7 sets, daily range): BP systolic 114–147; BP diastolic 62–79
--- NOTE | 2019-08-12 00:10 | NUR ---
Pain Reassessment Patient denies pain 0/1-0 at this time using adult scale. Patient resting in bed. Patient verbalized understanding of when to call for help and is aware of how frequent her pain medication is available. Will continue to monitor.
--- NOTE | 2019-08-12 02:12 | NUR ---
PATIENT GIVEN HOT PACKS FOR PAIN AND GIVEN COMFORT/REASSURANCE. PATIENT AWARE THAT PAIN MEDICATION THAT "WORKS" PER PATIENT IS NOT YET DUE. PATIENT STATED SHE WILL TRY TO GET SOME REST. WILL CONTINUE TO MONITOR.
--- NOTE | 2019-08-12 04:01 | NUR ---
COMFORTED PATIENT WITH HOT TOWELS PLACED PRESSURE UPON BACK FOR WHICH PATIENT STATES IS HELPING HER WITH HER PAIN. PATIENT IS RESTING IN BED. WILL CONTINUE TO MONITOR.
--- NOTE | 2019-08-12 05:30 | NUR ---
IV removal IV DC'd with clean sterile technique, catheter fully intact. Pressure dressing applied to site. Patient tolerated well.
[2019-08-12] MEDS: KETOROLAC TROMETH 15 mg/ml 1ML VL IV PRN (05:42)
--- NOTE | 2019-08-12 05:42 | NUR ---
IV insertion IV access obtained, via clean sterile technique by inserting 22 gauge catheter at right hand after 2 attempts. IV secured properly. No trauma to site. Patient tolerated well. Addendum: 08/12/19 at 5440 by LICHA DELGADO RN RN time correction: [id number]
[2019-08-12 05:57] LABS: Basophils # (auto) 0.1 10 ^3/uL (0-0.2); Basophils % (auto) 1.1 % (0.0-2.0); Eosinophils # (auto) 0.2 10 ^3/uL (0-0.8); Eosinophils % (auto) 2.8 % (0.0-7.0); Hematocrit 25.9 % (36.0-46.0); Hemoglobin 8.8 g/dL (12.2-16.2); Lymphocytes # (auto) 1.7 10 ^3/uL (0.4-5.4); Mean Corpuscular Hemoglobin 30.2 pg (28.0-32.0); Mean Corpuscular Hgb Conc. 33.9 g/dL (32.0-36.0); Monocytes # (auto) 0.6 10 ^3/uL (0-1.3); Monocytes % (auto) 10.5 % (0.0-12.0); Neutrophils # (auto) 3.4 10 ^3/uL (1.6-8.6); Neutrophils % (auto) 56.6 % (37.0-80.0); Platelet Count (auto) 220 10^3/uL (140-450); Red Blood Cells 2.91 10^6/uL (4.0-5.20)
[2019-08-12] MEDS: InsuLIN REG 1unit/0.01ml Soln (100units/ml) SC SCH ×4 (06:19→22:53)
--- NOTE | 2019-08-12 06:20 | NUR ---
PATIENT THRASHING AND YELLING IN PAIN. DR COOK PAGED TO UPDATE OF PATIENT STATUS OF PAIN. AWAITING CALL BACK.
[2019-08-12 06:22] LABS: Albumin 3.1 g/dL (3.4-5.0); BUN/Creatinine Ratio 19.3; Potassium 4.7 mmol/L (3.5-5.1)
[2019-08-12 06:25] LABS: Bilirubin, Total 0.6 mg/dL (0.2-1.0); Total Protein 6.7 g/dL (6.4-8.2)
--- NOTE | 2019-08-12 06:25 | NUR ---
RECEIVED CALL BACK DR COOK UPDATED OF PATIENT STATUS. NEW ORDERS RECEIVED. WILL CARRY OUT
[2019-08-12] MEDS ORDERED: MORPHINE SULF INJ 2 MG/ML SYRINGE 1ML IV ONE (06:30)
--- NOTE | 2019-08-12 06:30 | NUR ---
DR COOK PAGED PATIENT IS MAKING GROSS RAPID BODY MOVEMENTS, THRASHING IN BED, EXTREMELY AGITATED. HER IV HAS BECOME INEFFECTIVE DUE TO THESE RECENT MOVEMENTS. IV HAS BEEN DISCONTINUED DUE TO PATIENT'S EXTREME THRASHING BODY MOVEMENTS. DR COOK HAS BEEN PAGED. AWAITING CALL BACK.
--- NOTE | 2019-08-12 06:35 | NUR ---
PATIENT CONTINUES TO REFUSE IV INSERTION. PATIENT EXPLAINED THAT MEDICATION CANNOT BE ADMINISTERED WITHOUT APPROPRIATE ROUTE. PATIENT YELLING, "I DON'T CARE. I'M CALLING MY . I NEED TO LEAVE." WILL CONTINUE TO MONITOR.
--- NOTE | 2019-08-12 06:38 | NUR ---
DR COOK CALLED BACK UPDATED ON PATIENT STATUS. NEW ORDERS RECEIVED. WILL CARRY OUT.
[2019-08-12] MEDS: ACCU-CHEK COMFORT CURVE STRIP VI SCH ×4 (06:47→22:52)
--- NOTE | 2019-08-12 06:48 | NUR ---
Patient offered new order for pain medication. Patient stated that she does not want to take available pain medication and is refusing this RN and other RN's to start IV. Will notify day shift RN.
--- NOTE | 2019-08-12 07:20 | NUR ---
Opening Shift Note Assumed care of patient, awake and alert. No S/S of distress/SOB. Accepting for new IV to be inserted. Instructed on POC and to call for assist PRN, patient verbalized understanding. Fall and safety precautions in place. Call light within reach and able to use. Will continue to monitor for changes Q1hr and PRN.
[2019-08-12] MEDS: ENOXAPARIN SOD 40 MG/0.4 ML SYRINGE SC SCH (10:00)
[2019-08-12] MEDS: LACTULOSE 20Gm/30ML SOLN PO SCH ×2 (10:00→22:17)
[2019-08-12] MEDS: POLYETHYLENE GLYCOL 17 GM PWDR PO SCH (10:00)
--- NOTE | 2019-08-12 11:00 | NUR ---
IV medications on hold due to no IV access at this time. will resume all scheduled meds once new IV is inserted
--- NOTE | 2019-08-12 11:20 | NUR ---
WOUND CARE NOTE: Wound care in to see patient per wound care request "Rt Toe wound" that are noted present on admission. Bedside nurse took photograph of patient's wound upon admission for reference. Patient is 63 years old female admitted for Constipation. Patient with history of Anxiety,CKF, Depression, DM,High Lipids, UTI's. Patient is resting in bed in Rm. 235. Patient is awake, alert and oriented. Patient is in no stated pain at this time. She's able to turn and reposition self. Her Ryan score is 18. Patient's Rt lower leg noted has intact cast, she has history of fracture s/p closed reduction. Her Rt foot toes noted pink and able to wiggle toes. Her Rt great toe has dry scabs to both sides, no drainage/odor noted. Patient has podiatry consult for ingrown toe nail. Cleansed patient's Rt great toe with Betadine at this time, will defer further recommendation to delicatessen manager. No pressure injury noted. Patient tolerated well. Bed in low position, call desir on hand, all safety precautions in placed. No further wound care monitoring needed at this time. RECOMMENDATION: Nursing to continue Daily/PRN cleaning of Rt. great toe with Betadine per MD order, follow Canoe Inspector Final order, reconsult for active wound, pressure injury, Low Ryan score of 12 and below. Addendum: 08/12/19 at [address] RN Amended: Links added.
[2019-08-12] MEDS: FAMOTIDINE 20 MG TAB PO SCH (11:52)
[2019-08-12] MEDS: INSULIN LANTUS (GLARGINE) 1 /0.01ml (100units/ml) SC SCH ×2 (12:20→22:52)
[2019-08-12] MEDS: HYDROcodone-ACET 5/325MG TAB PO PRN ×2 (13:44→18:41)
--- NOTE | 2019-08-12 16:45 | NUR ---
D/C Planning Per SS consult for SNF Placement. Spoke to patient at bedside regarding Skill Nursing placement. Patent stated she does not want to be placed in a facility out of area and would like something local. Faxed orders to [facility], [facility]. Per Viktoriya with [facility] they are unable to accommodate patient needs. [facility] do not have female beds. Will follow up.
--- NOTE | 2019-08-12 16:50 | NUR ---
patient got upset after speaking to boyfriend on the phone and threatening to leave AMA. AMA form provided. Patient shortly after changed her mind to stay and continue with treatment.
[2019-08-12] MEDS: cefTRIAXone 1GM/50ML D5W 50 ML IV SCH (17:06)
--- NOTE | 2019-08-12 17:22 | NUR ---
assessment Patient is a 63 year old female who is alert and oriented. Patients cognitive abilities are intact. Prior to admission patient lived home with her boyfriend of 25 years and functioned independently. Patient informed me she was able to care for her own ADLs. Per patient she fell at home and now agrees to SNF for rehab. Patient has a fww, wheelchair and bedside commode for home use. Patients PCP is Dr Philip Tariq. [facility] will satisfy SNF order. I informed patient she has a right to speak to a protective services social worker regarding all care. I informed patient she has a right to participate in any and all discharge planning. Patient does not have a POA and advanced directive. I have offered patient information on POA and advanced directives. I informed the patient the advantages and benefits of having an Advanced Directive. Patient verbalized understanding and agreed to discharge plan. Addendum: 08/12/19 at 1724 by Kerri WAKEFIELD Amended: Links added.
--- NOTE | 2019-08-12 19:30 | NUR ---
Opening Shift Note Assumed care of patient, awake and alert x4. Patient denies pain or shortness of breath at this time. Instructed on plan of care and to call for assistance as needed, patient verbalized understanding. Bed is locked in lowest position, side rails x 2 are up, call light is within reach, and bed alarm is on.
--- NOTE | 2019-08-12 20:25 | NUR ---
IV insertion IV access obtained, via clean sterile technique by inserting 22 gauge catheter at right forearm after 1 attempt. IV secured properly. No trauma to site. Patient tolerated well.
--- NOTE | 2019-08-12 20:30 | NUR ---
IV removal IV to left wrist DC'd due to leaking. IV DC'd with clean sterile technique, catheter fully intact. Pressure dressing applied to site. Patient tolerated well.
[2019-08-12] MEDS: ATORVASTATIN 20 MG TAB PO SCH (22:15)
[2019-08-12] MEDS: AMITRIPTYLINE HCL 25 MG TAB PO SCH (22:16)
[2019-08-12] MEDS: MIRTAZAPINE 30 MG TAB PO SCH (22:16)
--- NOTE | 2019-08-12 22:30 | NUR ---
WOUND CARE Wound care performed to right great toe as ordered by MD. Patient tolerated well. No signs/symptoms of distress noted at this time.
[2019-08-13 04:00] VITALS: BP 124/77
[2019-08-13] MEDS: HYDROcodone-ACET 5/325MG TAB PO PRN (04:24)
--- NOTE | 2019-08-13 04:25 | NUR ---
Pain Patient is complaining of 10/10 on and off throbbing pain to mid upper back. Patient was provided with a heating pack and medicated for pain as ordered by MD (see eMAR).
[2019-08-13] MEDS: ACCU-CHEK COMFORT CURVE STRIP VI SCH ×4 (06:37→21:39)
[2019-08-13] MEDS: InsuLIN REG 1unit/0.01ml Soln (100units/ml) SC SCH ×4 (06:38→21:40)
--- NOTE | 2019-08-13 07:15 | NUR ---
Opening Shift Note Assumed care of patient from noc shift rn, awake and alert x4. Patient sleeping but easily aroused, denies pain or shortness of breath at this time. Instructed on plan of care and to call for assistance as needed, patient verbalized understanding. Bed is locked in lowest position, side rails x 2 are up, call light is within reach, and bed alarm is on. Advised to call for assistance, will continue to monitor q1hr and prn.
[2019-08-13 08:00] VITALS: BP 116/65
--- NOTE | 2019-08-13 08:00 | NUR ---
Patient was drowsy, irritable and uncooperative, trying to get out of bed. Patient was assisted back to bed and she is sleeping Dr. Tariq made aware
--- NOTE | 2019-08-13 08:41 | NUR ---
D/C Planning Placed followed up called to [facility]. Per Dorcas with [facility] she will let me know by 10:30am. Physical Therapy notes are still pending.
[2019-08-13 09:00] VITALS: BP 116/65
[2019-08-13] MEDS: cefTRIAXone 1GM/50ML D5W 50 ML IV SCH (09:00)
[2019-08-13] MEDS: POLYETHYLENE GLYCOL 17 GM PWDR PO SCH (10:00)
[2019-08-13] MEDS ORDERED: FAMOTIDINE 20 MG TAB PO SCH (10:00)
[2019-08-13] MEDS: LACTULOSE 20Gm/30ML SOLN PO SCH ×2 (10:00→22:00)
[2019-08-13] MEDS: ENOXAPARIN SOD 40 MG/0.4 ML SYRINGE SC SCH (10:00)
--- NOTE | 2019-08-13 10:00 | NUR ---
PT COMBATIVE AND TRYING TO GET OUT OF BED. PATIENT UNABLE TO SAFELY PARTICIPATE IN P.T. TODAY.
--- NOTE | 2019-08-13 10:40 | NUR ---
Patient refused all morning medication and accu-check despite multiple prompt and education on medication compliant. Will continue to monitor for behavioral changes q1hr and prn.
--- NOTE | 2019-08-13 11:20 | NUR ---
PATIENT'S BOYFRIEND, TRE WAS PRESENT DURING DR. COOK'S ROUND. HE WENT HOME WITH SOME OF PATIENT'S BELONGINGS, ONE PANT AND TOP PAJAMAS, 4 BRACELETS, MEDICATIONS.
[2019-08-13 11:40] LABS: Calcium 9.1 mg/dL (8.5-10.1); Potassium 4.9 mmol/L (3.5-5.1)
[2019-08-13 11:42] LABS: BUN/Creatinine Ratio 20.1
--- NOTE | 2019-08-13 12:24 | NUR ---
D/C Planning Received followed up called from Dorcas Herrera ph: [phone]. Per Dorcas patient has been accepted and she will provide room number and accepting doctor once she receives authorization from insurance. Order has been faxed to [facility] however physical therapy evaluation notes are still pending.
[2019-08-13 13:00] VITALS: BP 101/56
--- NOTE | 2019-08-13 13:36 | NUR ---
PATIENT HAD ANOTHER OUTBURST, WANTING TO GET OUT OF BED, DESPITE SAFETY CONCERNS. UNCOOPERATIVE AND REQUIRING FREQUENT REDIRECTION. REQUIRING STAFFS TO HOLD HER FROM HURTING HERSELF, UNTIL SHE WAS ABLE TO SETTLE DOWN AND FALL ASLEEP. WILL CONTINUE TO MONITOR Q1HR AND PRN.
[2019-08-13 16:00] VITALS: BP 169/85
--- NOTE | 2019-08-13 18:40 | NUR ---
PATIENT REFUSED EVENING INSULIN WITH BLOOD GLUCOSE OF 156. PATIENT REFUSED TO EAT DINNER AT THE TIME. SITTER AT BED SIDE, WILL CONTINUE TO PROMPT TO EAT AND MONITOR Q1HR AND PRN FOR CHANGES.
--- NOTE | 2019-08-13 19:30 | NUR ---
Opening Shift Note Assumed care of patient. Patient is laying in bed, eyes closed, with even and unlabored respirations noted. Sitter noted at bedside for safety precautions. Bed is locked in lowest position, side rails x 2 are up, call light is within reach, and bed alarm is on.
--- NOTE | 2019-08-13 21:30 | NUR ---
Refusing Evening Medications Patient refusing oral evening medications. This RN provided education to patient in regards to medication, patient did not verbalize understanding. Patient began rambling random phrases. Sitter noted at the bedside for safety precautions, bed is locked in lowest position, side rails x 2 are up, and call light is within reach.
[2019-08-13] MEDS: INSULIN LANTUS (GLARGINE) 1 /0.01ml (100units/ml) SC SCH (21:40)
[2019-08-13 22:00] VITALS: BP 150/85
[2019-08-13] MEDS: ATORVASTATIN 20 MG TAB PO SCH (22:00)
[2019-08-13] MEDS: MIRTAZAPINE 30 MG TAB PO SCH (22:00)
--- NOTE | 2019-08-14 03:14 | NUR ---
Rounds Patient awake and alert to self. Patient noted laying in bed watching television, even and unlabored respirations noted. No sign/symptoms of distress noted at this time. Sitter at bedside for safety precautions. Bed is locked in lowest position, side rails x2 are up, and call light is within reach.
[2019-08-14 06:00] VITALS: BP 139/67
--- NOTE | 2019-08-14 06:00 | NUR ---
Wound Care Wound care performed to right great toe as ordered by MD. Patient tolerated well. No signs/symptoms of distress noted at this time.
[2019-08-14] MEDS: ACCU-CHEK COMFORT CURVE STRIP VI SCH ×4 (06:19→22:16)
[2019-08-14] MEDS: InsuLIN REG 1unit/0.01ml Soln (100units/ml) SC SCH ×4 (06:21→22:00)
--- NOTE | 2019-08-14 06:30 | NUR ---
Rounds Patient is awake and alert to self, patient reoriented to person, place, time, and situation, will continue to reorient as needed and throughout shift. Patient is cooperative with care this morning. Patient is currently laying in bed with even and unlabored respirations, watching television. Bed is locked in lowest position, side rails x 2 are up, call light is within reach, and sitter is at the bedside for safety precautions.
[2019-08-14 07:15] LABS: BUN/Creatinine Ratio 20.3; Calcium 9.4 mg/dL (8.5-10.1); Potassium 3.9 mmol/L (3.5-5.1)
--- NOTE | 2019-08-14 07:30 | NUR ---
Opening Shift Note Assumed care of patient, awake and alert. No S/S of distress/SOB or pain. Bed in lowest and locked position with side rails up x2 and call light with in reach. Instructed on POC and to call for assist PRN, will continue to monitor for changes Q1hr and PRN.
[2019-08-14] MEDS: LACTULOSE 20Gm/30ML SOLN PO SCH ×2 (10:00→22:00)
--- NOTE | 2019-08-14 10:15 | NUR ---
PATIENT BECOMING AGITATED AND ATTEMPTING TO GET OUT OF BED AND REMOVE IV. THE PATIENT IS UNABLE TO WALK DUE TO HER RIGHT LEG CAST. PAGED. AWAITING CALL BACK.
--- NOTE | 2019-08-14 10:20 | NUR ---
SPOKE TO DR. COOK. RN UPDATED MD THAT THE PATIENT HAS BECOME AGITATED AND IS ATTEMPTING TO GET OUT OF BED AND REMOVE HER IV. MD AWARE. NEW ORDERS RECEIVED, READ BACK AND VERIFIED. RESTRAINT ORDERS SIGNED AND PLACED IN HARD CHART.
--- NOTE | 2019-08-14 10:20 | NUR ---
OBTAINED ORDERS AND PATIENT PLACED IN SOFT RESTRAINTS. RESTRAINTS APPLIED TO THE RIGHT AND LEFT WRIST AND LEFT ANKLE. RESTRAINTS APPLIED APPROPRIATELY PER PROTOCOL. SKIN INTACT IN RESTRAINT AREA. PATIENT CONTINUES TO BE VERBALLY BELLIGERENT. NO S/S OF DISTRESS OR SOB OR PAIN. RN EDUCATED THE PATIENT ON THE RISKS AND BENEFITS OF THE RESTRAINTS. RN OFFERED PATIENT BED BONILLA, HYDRATION, NUTRITION AND ANY COMFORT MEASURES. PATIENT REFUSED AT THIS TIME. WILL CONTINUE TO MONITOR THE PATIENT.
--- NOTE | 2019-08-14 10:35 | NUR ---
CALLED AND SPOKE TO THE PATIENTS SIGNIFICANT OTHER, JESSICA. RN NOTIFIED JESSICA OF THE PATIENTS ACTIONS AND THAT THE PATIENT HAS BEEN PLACED IN RESTRAINTS. RN ALSO NOTIFIED JESSICA THAT THE PATIENT WILL NOT BE ACCEPTED TO A REHAB FACILITY UNLESS THE PATIENT CAN COOPERATE. THE PATIENTS SIGNIFICANT OTHER, JESSICA, VERBALIZED UNDERSTANDING AND STATED, "I UNDERSTAND THAT SHE CAN'T ACT OUT AT A FACILITY, BUT I CAN'T TAKE CARE OF HER. IF I BRING HER BACK HOME, I WILL HAVE NO CHOICE BUT TO PACK MY BAGS AND LEAVE HER BECAUSE I CAN NOT HELP HER". RN NOTIFIED THE DATA ASSISTANT, PRASHANTH AND MOBILE UI/UX DESIGNERDARIEL ROYAL OF THE DISCUSSION WITH JESSICA. LORENZO ROYAL AWARE.
--- NOTE | 2019-08-14 11:10 | NUR ---
LEFT LEG RESTRAINT REMOVED RN EDUCATED PATIENT ON RISKS AND BENEFITS OF RESTRAINTS. PATIENT VERBALIZED UNDERSTANDING AND AGREED TO COOPERATE. RESTRAINT REMOVED FROM LEFT ANKLE. RIGHT AND LEFT WRIST RESTRAINT INTACT AND APPLIED APPROPRIATELY. SKIN INTACT IN RESTRAINT AREA OF LEFT AND RIGHT WRIST AND LEFT ANKLE. NO S/S OF DISTRESS OR SOB OR PAIN. RN OFFERED PATIENT BED BONILLA, HYDRATION, NUTRITION AND ANY COMFORT MEASURES.
--- NOTE | 2019-08-14 11:30 | NUR ---
RIGHT WRIST RESTRAINT REMOVED RN EDUCATED PATIENT ON RISKS AND BENEFITS OF RESTRAINTS. PATIENT VERBALIZED UNDERSTANDING AND AGREED TO COOPERATE. RESTRAINT REMOVED FROM RIGHT WRIST. LEFT WRIST RESTRAINT INTACT AND APPLIED APPROPRIATELY. SKIN INTACT IN RESTRAINT AREA OF LEFT AND RIGHT WRIST AND LEFT ANKLE. NO S/S OF DISTRESS OR SOB OR PAIN. RN OFFERED PATIENT BED BONILLA, HYDRATION, NUTRITION AND ANY COMFORT MEASURES.
[2019-08-14] MEDS: cefTRIAXone 1GM/50ML D5W 50 ML IV SCH (12:18)
[2019-08-14] MEDS: POLYETHYLENE GLYCOL 17 GM PWDR PO SCH (12:18)
[2019-08-14] MEDS: FAMOTIDINE 20 MG TAB PO SCH (12:19)
[2019-08-14] MEDS: ENOXAPARIN SOD 40 MG/0.4 ML SYRINGE SC SCH (12:19)
--- NOTE | 2019-08-14 12:30 | NUR ---
LEFT WRIST RESTRAINT REMOVED RN EDUCATED PATIENT ON RISKS AND BENEFITS OF RESTRAINTS. PATIENT VERBALIZED UNDERSTANDING AND AGREED TO COOPERATE. RESTRAINT REMOVED FROM LEFT WRIST. SKIN INTACT IN RESTRAINT AREA OF LEFT AND RIGHT WRIST AND LEFT ANKLE. NO S/S OF DISTRESS OR SOB OR PAIN. RN OFFERED PATIENT BED BONILLA, HYDRATION, NUTRITION AND ANY COMFORT MEASURES.
--- NOTE | 2019-08-14 13:00 | NUR ---
PATIENT REFUSED VITALS FOR 1300
--- NOTE | 2019-08-14 13:42 | NUR ---
IV removal RIGHT FA IV DC'd with clean sterile technique, catheter fully intact. Pressure dressing applied to site. Patient tolerated well.
--- NOTE | 2019-08-14 13:50 | NUR ---
PATIENT REFUSING NEW IV INSERTION. RN EDUCATED THE PATIENT ON THE RISKS AND BENEFITS OF THE IV. THE PATIENT STATED, "JESSICA IS PICKING ME UP, I DON'T NEED AN IV". PATIENT CONTINUES TO REFUSE IV AFTER EDUCATION.
--- NOTE | 2019-08-14 14:30 | NUR ---
PATIENT REFUSING NEW IV INSERTION. RN EDUCATED THE PATIENT ON THE RISKS AND BENEFITS OF THE IV. PATIENT CONTINUES TO REFUSE IV INSERTION.
--- NOTE | 2019-08-14 15:02 | NUR ---
NUTRITION ASSESSMENT NOTES Please refer to link notes of nutrition screen form filed under the intervention section of the plan of care for further details. Est. Energy Needs: [id number] kcal (25-30 kcal/kg BW). Est. Protein Needs: 81-97 gms/day (1.0-1.2 gms/kg BW). Will continue to monitor pertinent labs and reassess nutrient need prn Addendum: 08/14/19 at [address] Amended: Links added.
--- NOTE | 2019-08-14 17:00 | NUR ---
PATIENT REFUSED TO GET CLEANED UP AND REFUSED 1700 VITALS
--- NOTE | 2019-08-14 17:00 | NUR ---
PATIENT HAD BM IN BED. PATIENT REFUSED BED BONILLA AND STATED, "YOU ARE NOT CLEANING ME UP. THERE IS NO POINT." THE PATIENT WAS EDUCATED ON THE RISKS AND BENEFITS OF BEING CLEANED OF THE STOOL. PATIENT CONTINUES TO REFUSE TO BE CLEANED OF THE STOOL.
--- NOTE | 2019-08-14 17:10 | NUR ---
PATIENT REFUSING NEW IV INSERTION. RN EDUCATED THE PATIENT ON THE RISKS AND BENEFITS OF THE IV. PATIENT CONTINUES TO REFUSE IV INSERTION.
--- NOTE | 2019-08-14 17:30 | NUR ---
OFFERED TO CLEAN THE PATIENT OF THE STOOL. PT CONTINUES TO REFUSE AND THE PATIENT WAS RE-EDUCATED ON THE RISKS AND BENEFITS OF BEING CLEANED OF THE STOOL.
--- NOTE | 2019-08-14 18:30 | NUR ---
PATIENT REFUSING NEW IV INSERTION. RN EDUCATED THE PATIENT ON THE RISKS AND BENEFITS OF THE IV. PATIENT CONTINUES TO REFUSE IV INSERTION.
--- NOTE | 2019-08-14 19:00 | NUR ---
Opening Shift Note Assumed care of patient, awake and alert x1 to self. No S/S of distress/SOB or pain. Instructed on POC and to call for assist PRN, will continue to monitor for changes Q1hr and PRN.
[2019-08-14 22:00] VITALS: BP 130/70
[2019-08-14] MEDS: MIRTAZAPINE 30 MG TAB PO SCH (22:00)
[2019-08-14] MEDS: ATORVASTATIN 20 MG TAB PO SCH (22:15)
[2019-08-14] MEDS: INSULIN LANTUS (GLARGINE) 1 /0.01ml (100units/ml) SC SCH (22:26)
[2019-08-15 05:29] VITALS: BP 132/70
--- NOTE | 2019-08-15 06:39 | NUR ---
IV insertion IV access to left hand obtained, via clean sterile technique by inserting 24 gauge catheter after 3rd attempt. IV secured properly. No trauma to site. Patient tolerated procedure well.
[2019-08-15] MEDS: InsuLIN REG 1unit/0.01ml Soln (100units/ml) SC SCH ×3 (06:41→17:00)
[2019-08-15] MEDS: ACCU-CHEK COMFORT CURVE STRIP VI SCH ×3 (06:41→18:02)
--- NOTE | 2019-08-15 07:20 | NUR ---
Opening Shift Note Assumed care of patient, awake and alert, sitter at bedside. No S/S of distress/SOB or pain, patient is anxious but calm. Instructed on POC and to call for assist PRN, will continue to monitor for changes Q1hr and PRN.
--- NOTE | 2019-08-15 08:30 | NUR ---
PATIENT IS A/O, X4 CALM, STATES SHE FEELS MUCH BETTER THEN SHE DID YESTERDAY, SHE STATES SHE DOESN'T REMEMBER MUCH FROM YESTERDAY JUST THAT SHE HAD A HARD DAY AFTER SHE TOOK THE "MEDICINE" THAT MADE HER POOP". SHE STATED SHE WILL NOT TAKE THAT AGAIN, I DID EXPLAIN THE DIFFERENCE BETWEEN A STOOL SOFTENER AND A LAXATIVE. PATIENT VERBILIZED UNDERSTANDING. I INFORMED PATIENT THAT SHE WILL BE TRANSFER TO [facility] TODAY WHEN A BED IS AVAILABLE, PATIENT VERBILIZED UNDERSTANDING. WILL CONTINUE TO MONITOR.
[2019-08-15 09:02] VITALS: BP 117/81
[2019-08-15] MEDS: cefTRIAXone 1GM/50ML D5W 50 ML IV SCH (09:19)
[2019-08-15] MEDS: LACTULOSE 20Gm/30ML SOLN PO SCH (10:00)
[2019-08-15] MEDS: ENOXAPARIN SOD 40 MG/0.4 ML SYRINGE SC SCH (10:17)
[2019-08-15] MEDS: POLYETHYLENE GLYCOL 17 GM PWDR PO SCH (10:17)
[2019-08-15] MEDS: FAMOTIDINE 20 MG TAB PO SCH (10:17)
[2019-08-15 12:48] VITALS: BP 140/83
--- NOTE | 2019-08-15 14:31 | NUR ---
D/C Planning Received followed up called from [facility] with [facility] providing la authorization for [facility] [id number]. Placed followed up called to Dorcas with [facility] . Per Dorcas patient will be going to room 36a accepting MD Dr. Tariq. Transportation has been arrange at 16:00 with [employer] via [facility] . GENNY Tavares was informed.
--- NOTE | 2019-08-15 15:50 | NUR ---
REPORT CALLED TO CHRIS AT [facility], AWAITING TRANSPORTATION.PATIENT AWARE.
--- NOTE | 2019-08-15 16:00 | NUR ---
PATIENTS BOYFRIEND JESSICA BROUGHT IN PATIENTS MEDICATIONS FOR VERIFICATION, THEN TOOK THEM HOME. PATIENT AND BOYFRIEND NOTIFIED THAT WE WOULD DISPENCE ANY MEDICATION SHE NEEDED, PATIENT AND BOYFRIEND VERBILIZED UNDERSTANDING.
--- NOTE | 2019-08-15 17:58 | NUR ---
Discharge instructions given as ordered. All questions and concerns addressed. Patient verbalized understanding. IV removed with catheter intact, pressure dressing applied, Medication reconciliation form completed and copy given to patient. Home medications held in Pharmacy returned to patient, and needed vaccines given. . Report given to CHRIS at [facility]. Patient transported by [facility] on [facility] with all personal belongings. vs stable, denies pain.No distress noted at time of departure.
== END 2019-08-15 18:10 | DRG 361 ==
LOC: EDBD 05:41 → ER 05:43 → TELE 05:44 → EAST 20:00
PROVIDERS: ADMIT Nurse Practitioner Acute Care; ATTEND Internal Medicine
PROC: 0YBM0ZZ Excision of Right Foot, Open Approach (ICD-10-PCS; principal; 2019-08-12)
DX: L08.9 Local infection of the skin and subcutaneous tissue, unspecified (principal); E11.40 Type 2 diabetes mellitus with diabetic neuropathy, unspecified; E11.22 Type 2 diabetes mellitus with diabetic chronic kidney disease; I31.3 Pericardial effusion (noninflammatory); E44.1 Mild protein-calorie malnutrition; E87.5 Hyperkalemia; L60.0 Ingrowing nail; N13.2 Hydronephrosis with renal and ureteral calculous obstruction; F31.9 Bipolar disorder, unspecified; I13.10 Hypertensive heart and chronic kidney disease without heart failure, with stage 1 through stage 4 chronic kidney disease, or unspecified chronic kidney disease; G89.29 Other chronic pain; M54.89 Other dorsalgia; Z60.2 Problems related to living alone; D63.1 Anemia in chronic kidney disease; K59.00 Constipation, unspecified; N18.3 Chronic kidney disease, stage 3 (moderate); E78.5 Hyperlipidemia, unspecified; Z68.22 Body mass index [BMI] 22.0-22.9, adult; Z88.0 Allergy status to penicillin; Z88.8 Allergy status to other drugs, medicaments and biological substances; Z79.82 Long term (current) use of aspirin; Z90.710 Acquired absence of both cervix and uterus; Z82.49 Family history of ischemic heart disease and other diseases of the circulatory system
CPT/HCPCS: 36415; 70450; 74176; 80048; 80053; 81001; 82962; 83036; 84484; 85025; 87081; 93005; 96361; 96372; 96374; 96375; 97163; A4565; G0378; J0696; J1815

== ENCOUNTER 2020-01-19 10:49 | Inpatient (IN) | payer MEDICAID ==
[~2020-01-19] VITALS: Ht 157.5 cm; Wt 82.4 kg
[~2020-01-19 10:49] MED LIST changes: -ASPI-404 PO; +ASPI-543 PO
[2020-01-19] MEDS ORDERED: SODIUM CHLORIDE 0.9% 1,000 ML IV ONE ×2 (10:59)
[2020-01-19 11:50] LABS: Basophils # (auto) 0.1 10 ^3/uL (0-0.2); Basophils % (auto) 0.8 % (0.0-2.0); Eosinophils # (auto) 0.1 10 ^3/uL (0-0.8); Eosinophils % (auto) 1.7 % (0.0-7.0); Hemoglobin 10.5 g/dL (12.2-16.2); Lymphocytes # (auto) 1.5 10 ^3/uL (0.4-5.4); Lymphocytes % (auto) 21.6 % (10.0-50.0); Mean Corpuscular Hemoglobin 28.9 pg (28.0-32.0); Mean Corpuscular Hgb Conc. 33.8 g/dL (32.0-36.0); Mean Corpuscular Volume 85.6 fL (80.0-100.0); Monocytes % (auto) 13.9 % (0.0-12.0); Neutrophils # (auto) 4.4 10 ^3/uL (1.6-8.6); Platelet Count (auto) 118 10^3/uL (140-450); Red Blood Cells 3.62 10^6/uL (4.0-5.20); Red Cell Distribution Width 14.8 % (11.8-14.3); White Blood Cell 7.1 10^3/uL (4.4-10.8)
[2020-01-19 12:08] LABS: Albumin 3.2 g/dL (3.4-5.0); Calcium 9.3 mg/dL (8.5-10.1)
[2020-01-19 12:24] LABS: BUN/Creatinine Ratio 12.9; Bilirubin, Total 0.6 mg/dL (0.2-1.0); Total Protein 6.4 g/dL (6.4-8.2)
[2020-01-19] MEDS ORDERED: ENOXAPARIN SOD 60 MG/0.6 ML SYRINGE SC ONE (16:00)
[2020-01-19] MEDS ORDERED: ASPirin 81 mg TAB PO ONE (16:00)
[2020-01-19] MEDS ORDERED: LORazepam 2MG/ML-1ML VIAL ONE (17:05)
[2020-01-19] MEDS ORDERED: KETOROLAC TROMETH 30 MG/ML 1ML VIAL ONE (17:07)
[2020-01-19] MEDS ORDERED: KETOROLAC TROMETH 30 MG/ML 1ML VIAL IV ONE (17:15)
[2020-01-19] MEDS ORDERED: LORazepam 2MG/ML-1ML VIAL IV ONE (17:15)
[2020-01-19] MEDS ORDERED: NITROGLYCERIN 0.4 MG SL TAB SL PRN (17:30)
[2020-01-19] MEDS ORDERED: ONDANSETRON HCL 4 MG/2 ML VIAL IV PRN (17:30)
[2020-01-19] MEDS ORDERED: MORPHINE SULF INJ 2 MG/ML SYRINGE 1ML IV PRN (17:30)
[2020-01-19] MEDS ORDERED: METF-372 PO (17:32)
[2020-01-19] MEDS ORDERED: LAMO100T44 PO (17:32)
[2020-01-19] MEDS ORDERED: HYDR50CA2 PO (17:32)
[2020-01-19] MEDS ORDERED: LURA1TAB2 PO (17:32)
[2020-01-19] MEDS ORDERED: LORA0.5T20 PO (17:32)
[2020-01-19] MEDS ORDERED: AMIT75TA2 PO (17:32)
[2020-01-19] MEDS ORDERED: DEXTROSE (50%) 50ML SYRG IV PRN (17:45)
[2020-01-19] MEDS: metFORMIN HYDROCHLORIDE 500 MG TAB PO SCH (18:00)
[2020-01-19 20:02] VITALS: BP 120/52
--- NOTE | 2020-01-19 20:02 | NUR ---
Patient came to Unit w/ all belongings via bed from ER. Patient AOx4 and drowsy. Patient is laying supine w/ HOB at 45 degrees. Discussed POC w/ patient, patient responded verbally in agreement. Spoke to patient about medications needing to be sent to pharmacy due to hospital policy. No s/s of distress or SOB. Will continue to monitor.
[2020-01-19] MEDS: AMITRIPTYLINE HCL 25 MG TAB PO SCH (21:06)
[2020-01-19] MEDS: InsuLIN REG 1unit/0.01ml Soln (100units/ml) SC SCH (21:22)
[2020-01-19] MEDS: INSULIN LANTUS (GLARGINE) 1 /0.01ml (100units/ml) SC SCH (21:23)
[2020-01-19] MEDS: ACCU-CHEK COMFORT CURVE STRIP VI SCH (21:28)
--- NOTE | 2020-01-19 21:30 | NUR ---
IV removal on left forearm IV DC'd due to IV intermediate out of vein. Taken completely out with sterile technique, catheter fully intact. Pressure dressing applied to site. Patient tolerated procedure well. Addendum: 01/20/20 at 0236 by ÁNGEL MILLER RN RN CORRECTION: IV was on right forearm not left.
--- NOTE | 2020-01-19 21:40 | NUR ---
IV insertion IV access obtained, via clean sterile technique by inserting 22 gauge catheter in right hand after 1 attempt. IV secured properly. No trauma to site. Patient tolerated procedure well.
[2020-01-19] MEDS: MORPHINE SULF INJ 2 MG/ML SYRINGE 1ML IV PRN (21:44)
--- NOTE | 2020-01-19 21:44 | NUR ---
Patient Complains of Right Leg Pain Patient complains of pain and throbbing sensation. Pain medication given as prescribed for pain. Will continue to monitor.
[2020-01-19 22:00] VITALS: BP 120/52
[2020-01-19] MEDS ORDERED: ATORVASTATIN 20 MG TAB PO SCH (22:00)
[2020-01-20] MEDS ORDERED: PERCOT PO (04:05)
[2020-01-20] MEDS ORDERED: ACET-1156 PO (04:07)
[2020-01-20 05:44] VITALS: BP 100/57
[2020-01-20 05:50] LABS: Basophils # (auto) 0 10 ^3/uL (0-0.2); Basophils % (auto) 0.8 % (0.0-2.0); Eosinophils # (auto) 0.2 10 ^3/uL (0-0.8); Hematocrit 27.9 % (36.0-46.0); Hemoglobin 9.2 g/dL (12.2-16.2); Lymphocytes # (auto) 1.6 10 ^3/uL (0.4-5.4); Lymphocytes % (auto) 28.7 % (10.0-50.0); Mean Corpuscular Hemoglobin 28.6 pg (28.0-32.0); Mean Corpuscular Volume 86.6 fL (80.0-100.0); Monocytes # (auto) 0.7 10 ^3/uL (0-1.3); Monocytes % (auto) 12.9 % (0.0-12.0); Neutrophils % (auto) 54.6 % (37.0-80.0); Platelet Count (auto) 95 10^3/uL (140-450); Red Blood Cells 3.22 10^6/uL (4.0-5.20); Red Cell Distribution Width 14.6 % (11.8-14.3); White Blood Cell 5.5 10^3/uL (4.4-10.8)
[2020-01-20 06:17] LABS: Albumin 2.5 g/dL (3.4-5.0); Calcium 8.2 mg/dL (8.5-10.1); Potassium 4.4 mmol/L (3.5-5.1)
[2020-01-20 06:24] LABS: BUN/Creatinine Ratio 19.9; Bilirubin, Total 0.4 mg/dL (0.2-1.0); Total Protein 5.4 g/dL (6.4-8.2)
[2020-01-20] MEDS: ACCU-CHEK COMFORT CURVE STRIP VI SCH ×4 (06:27→22:25)
[2020-01-20] MEDS: InsuLIN REG 1unit/0.01ml Soln (100units/ml) SC SCH ×4 (06:27→22:25)
--- NOTE | 2020-01-20 06:40 | NUR ---
Critical Troponin Value Patient Troponin 0.946. Hospitalist Jojo. Addendum: 01/20/20 at 0744 by ÁNGEL IMLLER RN RN Hospitalist responded to call; cardio consult has been ordered prior to this; no new orders received at this time; Patient is Alert and oriented and no complaints of chest pain or s/s of distress noted.
--- NOTE | 2020-01-20 07:00 | NUR ---
Patient Care endorsed to Nena ROYAL
[2020-01-20 08:00] VITALS: BP 102/56
--- NOTE | 2020-01-20 08:00 | NUR ---
Received pt resting in bed, call light with in reach, pt matthews an nora wrap to rt lower leg, pt denies any pain or discomfort at this time, will continue to monitor pt.
--- NOTE | 2020-01-20 09:00 | NUR ---
Pt requesting to have her morning medications to be given now.
[2020-01-20] MEDS: ASPirin-EC 81 mg tab PO SCH (09:01)
[2020-01-20] MEDS: lamoTRIgine 100 MG TAB PO SCH (09:01)
[2020-01-20 09:23] VITALS: BP 102/56
--- NOTE | 2020-01-20 09:50 | NUR ---
Dr. Tucker at bed side to see pt, doctor discussed the plan of care with pt.
[2020-01-20] MEDS ORDERED: metFORMIN HYDROCHLORIDE 500 MG TAB PO SCH (10:00)
[2020-01-20] MEDS: MORPHINE SULF INJ 2 MG/ML SYRINGE 1ML IV PRN ×3 (10:56→22:12)
[2020-01-20] MEDS: Glucerna Carbsteady SHAKE Vanilla 8oz PO SCH ×2 (12:21→17:32)
[2020-01-20 13:00] VITALS: BP 121/69
[2020-01-20] MEDS: LORazepam 0.5 MG TAB PO PRN (15:28)
[2020-01-20 16:52] VITALS: BP 131/53
--- NOTE | 2020-01-20 17:01 | NUR ---
Called Dr. Tucker to inquired regarding pt's home medications, as per doctor ok to continue pt's home medications.
[2020-01-20] MEDS: metFORMIN HYDROCHLORIDE 500 MG TAB PO SCH (17:31)
--- NOTE | 2020-01-20 18:40 | NUR ---
Dr. Anderson / cardio at unit to see pt, doctor discussed the plan of care with pt, received orders for a CT angio, lovenox, echo, and NS at 100 ml/hr.
[2020-01-20] MEDS: SODIUM CHLORIDE 0.9% 1,000 ML IV SCH (20:49)
--- NOTE | 2020-01-20 22:00 | NUR ---
Patient care endorsed to Yady ROYAL. Pt currently resting in bed with no S/S of distress.
[2020-01-20 22:05] VITALS: BP 150/83
[2020-01-20] MEDS: ATORVASTATIN 20 MG TAB PO SCH (22:11)
[2020-01-20] MEDS: busPIRone HCL 10 MG TAB PO SCH (22:11)
[2020-01-20] MEDS: AMITRIPTYLINE HCL 25 MG TAB PO SCH (22:11)
[2020-01-20] MEDS: MIRTAZAPINE 30 MG TAB PO SCH (22:11)
[2020-01-20] MEDS: ENOXAPARIN SOD 100 MG/1 ML SYRINGE SC SCH (22:12)
[2020-01-20] MEDS: INSULIN LANTUS (GLARGINE) 1 /0.01ml (100units/ml) SC SCH (22:26)
[2020-01-21] MEDS: SODIUM CHLORIDE 0.9% 1,000 ML IV SCH ×2 (04:45→14:56)
[2020-01-21 05:00] VITALS: BP 123/67
[2020-01-21] MEDS: ACCU-CHEK COMFORT CURVE STRIP VI SCH ×4 (05:19→21:47)
[2020-01-21] MEDS: InsuLIN REG 1unit/0.01ml Soln (100units/ml) SC SCH ×4 (05:25→21:44)
[2020-01-21 08:00] VITALS: BP 117/88
[2020-01-21] MEDS ORDERED: metFORMIN HYDROCHLORIDE 500 MG TAB PO SCH (08:00)
[2020-01-21] MEDS: Glucerna Carbsteady SHAKE Vanilla 8oz PO SCH ×3 (09:32→18:03)
[2020-01-21] MEDS: lamoTRIgine 100 MG TAB PO SCH (09:43)
[2020-01-21] MEDS: ENOXAPARIN SOD 100 MG/1 ML SYRINGE SC SCH ×2 (09:43→21:46)
[2020-01-21] MEDS: busPIRone HCL 10 MG TAB PO SCH ×2 (09:43→21:42)
[2020-01-21] MEDS: ASPirin-EC 81 mg tab PO SCH (09:43)
[2020-01-21] MEDS: MORPHINE SULF INJ 2 MG/ML SYRINGE 1ML IV PRN ×3 (09:44→18:53)
[2020-01-21 09:50] VITALS: BP 117/88
--- NOTE | 2020-01-21 09:55 | NUR ---
fisheries technician at bed side to do echocardiogram.
[2020-01-21] MEDS ORDERED: ENOXAPARIN SOD 100 MG/1 ML SYRINGE SC SCH (10:00)
[2020-01-21 11:53] LABS: Basophils # (auto) 0 10 ^3/uL (0-0.2); Basophils % (auto) 0.7 % (0.0-2.0); Eosinophils # (auto) 0.1 10 ^3/uL (0-0.8); Eosinophils % (auto) 1.7 % (0.0-7.0); Hematocrit 32.6 % (36.0-46.0); Hemoglobin 10.7 g/dL (12.2-16.2); Lymphocytes # (auto) 1.3 10 ^3/uL (0.4-5.4); Lymphocytes % (auto) 18.9 % (10.0-50.0); Mean Corpuscular Hemoglobin 28.1 pg (28.0-32.0); Mean Corpuscular Hgb Conc. 32.8 g/dL (32.0-36.0); Mean Corpuscular Volume 85.9 fL (80.0-100.0); Monocytes # (auto) 0.7 10 ^3/uL (0-1.3); Monocytes % (auto) 10.6 % (0.0-12.0); Neutrophils # (auto) 4.7 10 ^3/uL (1.6-8.6); Neutrophils % (auto) 68.1 % (37.0-80.0); Platelet Count (auto) 139 10^3/uL (140-450); Red Cell Distribution Width 14.4 % (11.8-14.3)
[2020-01-21 12:08] LABS: Albumin 2.9 g/dL (3.4-5.0); Calcium 8.8 mg/dL (8.5-10.1); Potassium 4.6 mmol/L (3.5-5.1)
--- NOTE | 2020-01-21 12:09 | NUR ---
Nutrition Assessment Notes please see attached link for complete assessment Est energy needs ABW 69 [id number] kcal (20-23kcal/kg BW) Est protein needs:55-69g (0.8-1gkg BW) Will reassess prn Addendum: 01/21/20 at [address] Amended: Links added.
[2020-01-21 12:15] LABS: BUN/Creatinine Ratio 16.5; Bilirubin, Total 0.5 mg/dL (0.2-1.0); Total Protein 6.7 g/dL (6.4-8.2)
--- NOTE | 2020-01-21 12:43 | NUR ---
Called Dr. Tucker to inform doctor that pt is reporting to be itchy and want medication for the itching and medication for a stool softener, orders received for benadryl and for colace. Doctor also informed of troponin level of 0.799.
[2020-01-21] MEDS ORDERED: DOCUSATE SOD 100 MG CAP PO PRN (12:45)
--- NOTE | 2020-01-21 12:49 | NUR ---
Called Dr. Anderson / cardiology to inform doctor of troponin level of 0.799. No orders received at this time.
[2020-01-21 13:30] VITALS: BP 147/95
[2020-01-21 16:56] VITALS: BP 139/79
[2020-01-21] MEDS: metFORMIN HYDROCHLORIDE 500 MG TAB PO SCH (17:03)
[2020-01-21] MEDS: diphenhdrAMINE HCL 25 MG CAP PO PRN (17:50)
--- NOTE | 2020-01-21 19:35 | NUR ---
Opening Shift Note Assumed care of patient, awake and alert. No S/S of distress/SOB or pain. Instructed on POC and to call for assist as needed. Patient is laying in bed with the rails up x2. Bed is locked in the lowest position. Call light explained and placed within reach. Swanson catheter in place with bag hanging below bladder. Will continue to monitor.
[2020-01-21] MEDS: ATORVASTATIN 20 MG TAB PO SCH (21:43)
[2020-01-21] MEDS: AMITRIPTYLINE HCL 25 MG TAB PO SCH (21:43)
[2020-01-21] MEDS: MIRTAZAPINE 30 MG TAB PO SCH (21:44)
[2020-01-21] MEDS: INSULIN LANTUS (GLARGINE) 1 /0.01ml (100units/ml) SC SCH (21:45)
[2020-01-21 22:00] VITALS: BP 128/65
[2020-01-22] MEDS: SODIUM CHLORIDE 0.9% 1,000 ML IV SCH ×3 (03:29→21:44)
[2020-01-22 05:00] VITALS: BP 124/63
[2020-01-22] MEDS: OXYCODONE W/ ACETAMINOPHEN 5/325MG TABLET PO PRN ×2 (06:45→10:27)
[2020-01-22] MEDS: ACCU-CHEK COMFORT CURVE STRIP VI SCH ×4 (06:57→21:45)
[2020-01-22] MEDS: InsuLIN REG 1unit/0.01ml Soln (100units/ml) SC SCH ×4 (06:57→21:57)
[2020-01-22] MEDS: ENOXAPARIN SOD 100 MG/1 ML SYRINGE SC SCH ×2 (07:18→21:45)
[2020-01-22 08:00] VITALS: BP 120/67
--- NOTE | 2020-01-22 08:00 | NUR ---
Received pt resting in bed, call light with in reach, murillo draining to gravity, no pain or distress noted at this time, will continue to monitor pt.
[2020-01-22] MEDS: Glucerna Carbsteady SHAKE Vanilla 8oz PO SCH ×3 (09:20→17:54)
[2020-01-22] MEDS: busPIRone HCL 10 MG TAB PO SCH ×2 (09:20→21:44)
[2020-01-22] MEDS: ASPirin-EC 81 mg tab PO SCH (09:20)
[2020-01-22] MEDS: lamoTRIgine 100 MG TAB PO SCH (09:20)
[2020-01-22 09:45] LABS: Basophils # (auto) 0.1 10 ^3/uL (0-0.2); Eosinophils # (auto) 0.2 10 ^3/uL (0-0.8); Eosinophils % (auto) 2.9 % (0.0-7.0); Hematocrit 30.4 % (36.0-46.0); Hemoglobin 10.1 g/dL (12.2-16.2); Lymphocytes # (auto) 1.3 10 ^3/uL (0.4-5.4); Lymphocytes % (auto) 22.1 % (10.0-50.0); Mean Corpuscular Hemoglobin 28.4 pg (28.0-32.0); Mean Corpuscular Hgb Conc. 33.2 g/dL (32.0-36.0); Mean Corpuscular Volume 85.5 fL (80.0-100.0); Monocytes # (auto) 0.7 10 ^3/uL (0-1.3); Monocytes % (auto) 11.8 % (0.0-12.0); Neutrophils # (auto) 3.6 10 ^3/uL (1.6-8.6); Neutrophils % (auto) 62.2 % (37.0-80.0); Platelet Count (auto) 154 10^3/uL (140-450); Red Blood Cells 3.55 10^6/uL (4.0-5.20); Red Cell Distribution Width 14.3 % (11.8-14.3); White Blood Cell 5.7 10^3/uL (4.4-10.8)
[2020-01-22 10:06] LABS: Calcium 8.8 mg/dL (8.5-10.1); Potassium 4.2 mmol/L (3.5-5.1)
[2020-01-22] MEDS: diphenhdrAMINE HCL 25 MG CAP PO PRN (10:26)
[2020-01-22 10:31] LABS: Albumin 2.7 g/dL (3.4-5.0); BUN/Creatinine Ratio 15.3; Bilirubin, Total 0.5 mg/dL (0.2-1.0); Total Protein 6.4 g/dL (6.4-8.2)
[2020-01-22 11:48] VITALS: BP 129/74
[2020-01-22 11:56] LABS: INR 1.08 (0.9-1.15); Partial Thromboplastin Time 31.7 sec (23.0-31.2)
--- NOTE | 2020-01-22 15:29 | NUR ---
Dr. Tucker at bed side to see pt, doctor discussed the plan of care with pt.
--- NOTE | 2020-01-22 15:40 | NUR ---
Assessment Patient is a 64-year-old female who is alert and oriented. Prior to admission patient lived home with her boyfriend of 25 years and functioned independently. Patient informed me she was able to care for her own ADLs. Per patient she has a walker, wheelchair, electric wheelchair and bedside commode. Patients PCP is Dr Philip Tariq. Per patient she will return home to her prior living arrangements post discharge and family will transport her home. Advised patient there is a social service for home health service for physical therapy. Patient informed me she is on service with [employer] and would like to resume service with [facility]. Informed patient clinical information will be faxed to [facility]. Informed patient she has a right to speak to a foster care social worker regarding all care. I informed patient she has a right to participate in any and all discharge planning. Patient verbalized understanding and agreed to discharge plan. [place] [facility] [place] [facility]. Per Oxana with [email or web address] they will see patient within 24-48hrs upon d/c day. Obtain authorization from [facility] [id number]. Addendum: 01/22/20 at 1553 by OXANA WAKEFIELD Amended: Links added.
[2020-01-22 17:00] VITALS: BP 139/82
[2020-01-22] MEDS: metFORMIN HYDROCHLORIDE 500 MG TAB PO SCH (17:55)
[2020-01-22] MEDS ORDERED: traMADol HCL 50 MG TAB PO PRN (18:15)
--- NOTE | 2020-01-22 18:16 | NUR ---
Called Dr. Tucker to inform him that pt is reporting itching with the morphine and percocet, pt is requesting any other pain medication that is not an opioid, pt stated that she is ok with taking tramadol, orders received for Tramadol 25 mg po q 6hr.
[2020-01-22] MEDS ORDERED: OXYCODONE W/ ACETAMINOPHEN 5/325MG TABLET PO PRN ×2 (18:30)
--- NOTE | 2020-01-22 19:30 | NUR ---
Opening Shift Note Assumed care of patient, awake and alert. No S/S of distress/SOB. POC discussed and questions answered. Bed is locked in lowest position with side rails up x2 for safety, call light is within reach and patient is encouraged to call for assistance PRN, will continue to monitor for changes Q1hr and PRN.
[2020-01-22] MEDS: traMADol HCL 50 MG TAB PO PRN (19:58)
[2020-01-22] MEDS: AMITRIPTYLINE HCL 25 MG TAB PO SCH (21:45)
[2020-01-22] MEDS: MIRTAZAPINE 30 MG TAB PO SCH (21:45)
[2020-01-22] MEDS: ATORVASTATIN 20 MG TAB PO SCH (21:46)
[2020-01-22] MEDS: INSULIN LANTUS (GLARGINE) 1 /0.01ml (100units/ml) SC SCH (21:58)
[2020-01-22 22:00] VITALS: BP 140/89
[2020-01-23 05:00] VITALS: BP 98/50
--- NOTE | 2020-01-23 05:37 | NUR ---
CHG BATH GIVEN AND ALL LINENS CHANGED.
[2020-01-23] MEDS: SODIUM CHLORIDE 0.9% 1,000 ML IV SCH ×4 (06:40→19:40)
[2020-01-23] MEDS: ACCU-CHEK COMFORT CURVE STRIP VI SCH ×4 (06:40→22:03)
[2020-01-23] MEDS: InsuLIN REG 1unit/0.01ml Soln (100units/ml) SC SCH ×4 (06:41→22:10)
--- NOTE | 2020-01-23 07:00 | NUR ---
PATIENT TAKEN TO SUPPLY CLERK
[2020-01-23] MEDS ORDERED: LIDOCAINE 2%HCL (LOCAL ANESTH.) INJ 20ML MDV ONE (07:32)
[2020-01-23] MEDS ORDERED: IOHEXOL 350 MG/ML 100ML IJ ONE (07:32)
[2020-01-23] MEDS ORDERED: ATROPINE SULF 1 MG/10ml SYR ONE (07:38)
[2020-01-23] MEDS ORDERED: HEPARIN SODIUM (PORCINE) 5000 UNITS/ML 1ML VIAL ONE (07:39)
[2020-01-23] MEDS ORDERED: ANGIOMAX 250 MG VIAL IV ONE (07:39)
[2020-01-23] MEDS ORDERED: fentaNYL CITRATE 100 MCG/2 ML VL ONE (07:39)
[2020-01-23] MEDS ORDERED: VERAPAMIL 2.5MG/ML INJ 2ML VIAL IV ONE (07:39)
[2020-01-23] MEDS ORDERED: MIDAZOLAM HCL 1MG/1ML-2 ML VIAL ONE ×2 (07:39→09:05)
[2020-01-23] MEDS ORDERED: SODIUM CHL 0.9% 50 ML ONE (07:40)
[2020-01-23] MEDS ORDERED: NITROGLYCERIN 5MG/ML 10ML VIAL IV ONE (07:43)
--- NOTE | 2020-01-23 07:44 | NUR ---
RE: Intervention Patient off unit at scheduled procedure. Addendum: 01/23/20 at 0841 by Gini Sheikh RN Amended: Links added.
[2020-01-23] MEDS: Glucerna Carbsteady SHAKE Vanilla 8oz PO SCH ×3 (08:00→18:04)
--- NOTE | 2020-01-23 08:00 | NUR ---
RE: Interventions Patient off unit at scheduled procedure. Addendum: 01/23/20 at 0841 by Gini Sheikh RN Amended: Links added.
[2020-01-23] MEDS: ENOXAPARIN SOD 100 MG/1 ML SYRINGE SC SCH ×2 (08:47→21:52)
[2020-01-23] MEDS ORDERED: TICAGRELOR 90 MG TAB ONE (08:48)
[2020-01-23] MEDS ORDERED: ADENOSINE 90 MG/30 ML INJ IV ONE (08:49)
[2020-01-23] MEDS ORDERED: TICAGRELOR 90 MG TAB PO SCH ×2 (10:00→22:00)
--- NOTE | 2020-01-23 10:01 | NUR ---
pt anxious pt states, "i'm really anxious and itching...i need to take something for my anxiety."
[2020-01-23] MEDS ORDERED: TICAGRELOR 90 MG TAB PO ONE (10:15)
--- NOTE | 2020-01-23 10:15 | NUR ---
anxiety med administered anxiety med as ordered (see EMar).
--- NOTE | 2020-01-23 10:40 | NUR ---
pt back in room pt transferred back to room without incident. pt resting comfortably. endorsed to primary RN at bedside.
--- NOTE | 2020-01-23 10:41 | NUR ---
Assumed care of patient Patient resting in bed with even and unlabored respirations, no distress noted. Vasc-band in place to the RWR. No bleeding or swelling noted. Instructed patient on POC, fall precautions and to call for assistance as needed. patient verbalized understanding. Fall precautions in place with call light within reach.
--- NOTE | 2020-01-23 11:10 | NUR ---
2ml of air removed from Vasc-Band No bleeding or swelling noted. Instructed patient to notify staff immediately if any bleeding is noted. Patient verbalized understanding. Call light within reach.
[2020-01-23] MEDS: lamoTRIgine 100 MG TAB PO SCH (11:17)
[2020-01-23] MEDS: ASPirin-EC 81 mg tab PO SCH (11:17)
[2020-01-23] MEDS: busPIRone HCL 10 MG TAB PO SCH ×2 (11:18→21:51)
--- NOTE | 2020-01-23 11:30 | NUR ---
IV access removed by patient Patient notified staff that IV access had come out. No bleeding noted. Catheter intact. Dressing applied.
[2020-01-23] MEDS: diphenhdrAMINE HCL 25 MG CAP PO PRN (11:38)
[2020-01-23 12:00] VITALS: BP 157/84
--- NOTE | 2020-01-23 12:30 | NUR ---
Vasc-Band removed No bleeding or swelling noted. Dressing applied.
[2020-01-23] MEDS: LORazepam 0.5 MG TAB PO PRN ×2 (13:28→22:02)
--- NOTE | 2020-01-23 15:45 | NUR ---
Patient resting in bed with even and unlabored respirations RWR dressing is clean, dry and intact with no bleeding or swelling noted. Respirations even and unlabored, no distress noted.
[2020-01-23] MEDS: traMADol HCL 50 MG TAB PO PRN (16:40)
--- NOTE | 2020-01-23 16:49 | NUR ---
Swanson catheter removed per patient's request Swanson catheter removed with clean technique, catheter intact. 175ml of clear yellow urine drained.
--- NOTE | 2020-01-23 16:53 | NUR ---
PICC line/Midline RN at bedside to obtain IV access Multiple attempts have been attempted by workforce staffing advisor members to obtain IV access.
[2020-01-23 16:54] VITALS: BP 149/82
--- NOTE | 2020-01-23 16:59 | NUR ---
Contacted MD per patient's request for eye drops & discharge order Message left for Dr. Tucker.
--- NOTE | 2020-01-23 17:02 | NUR ---
20G IV TO UPPER ARM DONE VIA ULTRASOUND GUIDED
[2020-01-23] MEDS ORDERED: ARTIFICIAL TEARS 15ml EACHEYE PRN (18:15)
--- NOTE | 2020-01-23 18:42 | NUR ---
Closing note Patient resting in bed with even and unlabored respirations, no distress noted. Fall precautions in place with call light within reach. Dressing to the right wrist is clean, dry and intact with no bleeding or swelling noted.
--- NOTE | 2020-01-23 19:04 | NUR ---
Care endorsed to GENNY Zhou.
--- NOTE | 2020-01-23 19:15 | NUR ---
Patient clear for discharge per Dr. Anderson Discharge prescription placed in patient's hard chart. Patient to continue all home medications, including baby aspirin.
[2020-01-23] MEDS: ATORVASTATIN 20 MG TAB PO SCH (21:52)
[2020-01-23] MEDS: AMITRIPTYLINE HCL 25 MG TAB PO SCH (21:52)
[2020-01-23] MEDS: MIRTAZAPINE 30 MG TAB PO SCH (21:52)
[2020-01-23 22:00] VITALS: BP 129/79
[2020-01-23] MEDS: INSULIN LANTUS (GLARGINE) 1 /0.01ml (100units/ml) SC SCH (22:10)
[2020-01-24] MEDS: SODIUM CHLORIDE 0.9% 1,000 ML IV SCH ×2 (04:09→05:15)
[2020-01-24 05:16] VITALS: BP 140/81
[2020-01-24] MEDS: ACCU-CHEK COMFORT CURVE STRIP VI SCH (06:49)
[2020-01-24] MEDS: InsuLIN REG 1unit/0.01ml Soln (100units/ml) SC SCH (06:56)
--- NOTE | 2020-01-24 07:45 | NUR ---
Opening note Assumed care of patient from NOC RN. Patient is AOx4 no s/s of distress or shortness of breath noted. Bed is in lowest locked position, call light is within reach, and side rails are up x2. Updated patient on plan of care and patient verbalized understanding. Will continue to monitor q1hr and PRN.
[2020-01-24 08:00] VITALS: BP 132/78
[2020-01-24] MEDS: Glucerna Carbsteady SHAKE Vanilla 8oz PO SCH (08:00)
[2020-01-24 08:50] VITALS: BP 132/78
--- NOTE | 2020-01-24 09:45 | NUR ---
Discharge note Discharge instructions given as ordered. Encourage to follow up with PMD as instructed. All questions and concerns addressed. Patient verbalized understanding. Home medications held in Pharmacy returned to patient. IV removed with catheter intact, pressure dressing applied. Telemetry unit returned to ICU. Patient stated "I would like to wait in the lobby." Patient was taken to lobby via wheelchair with all personal belongings, accompanied by staff member. No distress noted at time of departure.
== END 2020-01-24 09:45 | disposition home or self-care (01) | DRG 850 ==
LOC: ER 10:49 → EDBD 10:49 → TELE 10:50 → TELE-WESTW 20:34
PROVIDERS: ADMIT Internal Medicine; ATTEND Internal Medicine
PROC: 4A023N7 Measurement of Cardiac Sampling and Pressure, Left Heart, Percutaneous Approach (ICD-10-PCS; principal; 2020-01-23)
PROC: B2111ZZ Fluoroscopy of Multiple Coronary Arteries using Low Osmolar Contrast (ICD-10-PCS; 2020-01-23)
PROC: 4A033BC Measurement of Arterial Pressure, Coronary, Percutaneous Approach (ICD-10-PCS; 2020-01-23)
PROC: 027034Z Dilation of Coronary Artery, One Artery with Drug-eluting Intraluminal Device, Percutaneous Approach (ICD-10-PCS; 2020-01-23)
DX: R53.1 Weakness (principal); I21.4 Non-ST elevation (NSTEMI) myocardial infarction; E11.40 Type 2 diabetes mellitus with diabetic neuropathy, unspecified; E86.0 Dehydration; E11.65 Type 2 diabetes mellitus with hyperglycemia; E78.5 Hyperlipidemia, unspecified; F31.9 Bipolar disorder, unspecified; I10 Essential (primary) hypertension; R00.0 Tachycardia, unspecified; E44.1 Mild protein-calorie malnutrition; I25.10 Atherosclerotic heart disease of native coronary artery without angina pectoris; I25.2 Old myocardial infarction; Z79.01 Long term (current) use of anticoagulants; Z80.7 Family history of other malignant neoplasms of lymphoid, hematopoietic and related tissues; Z82.49 Family history of ischemic heart disease and other diseases of the circulatory system; Z83.3 Family history of diabetes mellitus; Z91.81 History of falling; Z90.710 Acquired absence of both cervix and uterus; Z88.0 Allergy status to penicillin; Z88.8 Allergy status to other drugs, medicaments and biological substances; Z68.34 Body mass index [BMI] 34.0-34.9, adult
CPT/HCPCS: 36415; 70450; 71045; 71275; 80053; 82962; 84484; 85025; 85610; 85730; 86850; 86900; 86901; 92928; 93005; 93306; 93458; 93571; 97110; 97116; 97163; 97530; 99152; 99153; C1874; G0378; J0153; J1815; J1885; J2250; J2405; J3490

== ENCOUNTER 2020-04-27 14:51 | Emergency (ER) | payer MEDICAID ==
[~2020-04-27] VITALS: Ht 167.6 cm; Wt 72.6 kg
[~2020-04-27 14:51] MED LIST changes: +ACET-1156 PO; -BACL10TA PO; -LAMO25TA2 PO; +LORA0.5T20 PO; +LURA1TAB2 PO; -LURA20TA PO; +METF-372 PO; -METF500S PO; -NAPR375T27 PO; +PERCOT PO
[2020-04-27 15:00] VITALS: BP 170/98
[2020-04-27] MEDS ORDERED: PANTOPRAZOLE 40 MG/10 ML VIAL INJ IV STA (15:02)
[2020-04-27] MEDS ORDERED: MORPHINE SULFATE 4 MG/ML SYR/VIAL IV ONE (15:15)
[2020-04-27] MEDS ORDERED: SODIUM CHLORIDE 0.9% 500 ML IVB ONE (15:15)
[2020-04-27] MEDS ORDERED: ONDANSETRON HCL 4 MG/2 ML VIAL IV ONE (15:15)
== END 2020-04-27 21:13 | disposition left against medical advice (07) ==
LOC: ER 14:51 → EDBD 14:51 → ER 21:13
DX: E11.22 Type 2 diabetes mellitus with diabetic chronic kidney disease (principal); I12.9 Hypertensive chronic kidney disease with stage 1 through stage 4 chronic kidney disease, or unspecified chronic kidney disease; N18.9 Chronic kidney disease, unspecified; E78.5 Hyperlipidemia, unspecified; F12.10 Cannabis abuse, uncomplicated; Z90.710 Acquired absence of both cervix and uterus; Z88.0 Allergy status to penicillin; Z88.8 Allergy status to other drugs, medicaments and biological substances
CPT/HCPCS: 74176

== ENCOUNTER 2020-11-14 11:05 | Inpatient (IN) | payer MEDICAID ==
[~2020-11-14] VITALS: Ht 175.3 cm; Wt 78.9 kg
[2020-11-14] VITALS (39 sets, daily range): BP systolic 93–132; BP diastolic 44–63
[~2020-11-14 11:05] MED LIST changes: +AMIT25TA12 PO; -AMIT25TA9 PO; +LURA1TAB PO; -LURA1TAB2 PO; +MIRT-66 PO; -MIRT30TA PO
[2020-11-14 12:06] LABS: Eosinophils # (auto) 0 10 ^3/uL (0-0.8); Eosinophils % (auto) 0.2 % (0.0-7.0); Hemoglobin 12.5 g/dL (12.2-16.2); Monocytes # (auto) 0.4 10 ^3/uL (0-1.3); Nucleated Red Blood Cells % 0.1 %
[2020-11-14 12:09] LABS: Basophils # (auto) 0 10 ^3/uL (0-0.2); Basophils % (auto) 0.3 % (0.0-2.0); Hematocrit 39.9 % (36.0-46.0); Lymphocytes # (auto) 1.1 10 ^3/uL (0.4-5.4); Mean Corpuscular Hemoglobin 28.5 pg (28.0-32.0); Mean Corpuscular Hgb Conc. 31.4 g/dL (32.0-36.0); Mean Corpuscular Volume 90.7 fL (80.0-100.0); Monocytes % (auto) 3.2 % (0.0-12.0); Neutrophils # (auto) 9.9 10 ^3/uL (1.6-8.6); Neutrophils % (auto) 86.3 % (37.0-80.0); Red Cell Distribution Width 14.8 % (11.8-14.3); White Blood Cell 11.4 10^3/uL (4.4-10.8)
[2020-11-14 12:19] LABS: Urine Bacteria MANY /hpf (None Seen); Urine Blood 1+ /uL (Negative); Urine Specific Gravity 1.014 (1.001-1.035); Urine WBC 375 /hpf (0 - 5); Urine WBC Clumps PRESENT /hpf (None Seen)
[2020-11-14 12:25] LABS: Albumin 2.9 g/dL (3.4-5.0); Calcium 8.4 mg/dL (8.5-10.1); Magnesium 3.3 mg/dL (1.6-2.6)
[2020-11-14] MEDS ORDERED: SODIUM BICARBONATE 8.4% INJ 50ML SYRINGE ONE ×2 (12:29→14:38)
[2020-11-14 12:31] LABS: BUN/Creatinine Ratio 13.9; Bilirubin, Total 0.5 mg/dL (0.2-1.0); Total Protein 6.6 g/dL (6.4-8.2)
[2020-11-14 12:40] LABS: Potassium 8.2 mmol/L (3.5-5.1)
[2020-11-14] MEDS ORDERED: SODIUM BICARBONATE 8.4 % INJ 50ML VIAL IV ONE ×2 (12:45→15:00)
[2020-11-14] MEDS ORDERED: cefTRIAXone 1GM/50ML D5W 50 ML IV ONE ×2 (12:45→12:51)
[2020-11-14] MEDS ORDERED: CALCIUM GLUC 1,000mg/50ml-NS 50 ML IV ONE ×2 (12:50→13:00)
[2020-11-14] MEDS ORDERED: FUROSEMIDE 40 MG/4 ML VIAL ONE (12:50)
[2020-11-14] MEDS ORDERED: ALBUTEROL SULF 2.5 MG/0.5ML(0.5%) NEB SOLN NEB ONE (13:00)
[2020-11-14] MEDS ORDERED: FUROSEMIDE 40 MG/4 ML VIAL IV ONE (13:00)
[2020-11-14] MEDS ORDERED: InsuLIN REG 1unit/0.01ml Soln (100units/ml) IV ONE (13:00)
[2020-11-14] MEDS ORDERED: ETOMIDATE (2MG/ML) 20ML VIAL IV ONE ×2 (13:01→13:05)
[2020-11-14] MEDS ORDERED: ROCURONIUM 10MG/ML 10ML VIAL IV ONE ×2 (13:01→13:05)
[2020-11-14] MEDS ORDERED: MIDAZOLAM DRIP 50 mg/50mL 50 ML IV ONE (13:03)
[2020-11-14] MEDS ORDERED: NOREPINEPHRINE 8 MG/250ML KIT 250 ML IV ONE (13:03)
[2020-11-14] MEDS ORDERED: fentaNYL Drip 2500mCg/250mlNS 250 ML IV ONE (13:04)
[2020-11-14] MEDS: MIDAZOLAM DRIP 50 mg/50mL 50 ML IV SCH (13:06)
[2020-11-14] MEDS: ACCU-CHEK COMFORT CURVE STRIP VI SCH ×7 (13:13→22:34)
[2020-11-14] MEDS ORDERED: SODIUM BICARBONATE 50ML VIAL 150 ML in D5W 5% 1,000 ML IV ONE (13:15)
[2020-11-14] MEDS ORDERED: NITROGLYCERIN 0.4 MG SL TAB SL PRN (13:15)
[2020-11-14] MEDS ORDERED: INSULIN LANTUS (GLARGINE) 1 /0.01ml (100units/ml) SC ONE (13:15)
[2020-11-14] MEDS ORDERED: MORPHINE SULFATE INJECTION 2 MG/ML SYRG IV PRN (13:15)
[2020-11-14] MEDS ORDERED: PIPERACILLIN-TAZOB 3.375GM 100 ML IV SCH (13:15)
[2020-11-14] MEDS ORDERED: SODIUM CHLORIDE 0.9% 2,000 ML IV ONE (13:15)
[2020-11-14] MEDS ORDERED: DEXTROSE (50%) 50ML SYRG IV PRN ×2 (13:15→21:30)
[2020-11-14] MEDS ORDERED: D5W/SOD CHL 0.45%/KCL 20MEQ 1,000 ML IV SCH (13:15)
[2020-11-14] MEDS ORDERED: InsuLIN R (HUMAN) 100 UNITS in SODIUM CHL 0.9% 99 ML IV SCH ×2 (13:15→21:30)
[2020-11-14 13:21] LABS: Lactic Acid w/Reflex 9.8 mmol/L (0.4-2.0)
[2020-11-14] MEDS ORDERED: VANCOMYCIN 1GM/250ML 250 ML IV ONE (13:45)
[2020-11-14] MEDS: fentaNYL Drip 2500mCg/250mlNS 250 ML IV SCH (14:00)
[2020-11-14] MEDS ORDERED: PIPERACILLIN-TAZOB 2.25GM 50 ML IV SCH (14:00)
[2020-11-14] MEDS: NOREPINEPHRINE 8 MG/250ML KIT 250 ML IV SCH (15:06)
[2020-11-14] MEDS: ENOXAPARIN SOD 30 MG/0.3 ML SYRINGE SC SCH (15:16)
[2020-11-14 17:02] LABS: BUN/Creatinine Ratio 14.5; Calcium 7.6 mg/dL (8.5-10.1)
[2020-11-14 17:05] LABS: Potassium 6.2 mmol/L (3.5-5.1)
[2020-11-14] MEDS: SODIUM CHLORIDE 0.9% 1,000 ML IV SCH ×3 (17:18→21:00)
[2020-11-14] MEDS ORDERED: HEPARIN 1,000 UNITS/ml 1ML VIAL IV ONE (17:30)
[2020-11-14] MEDS: CEFEPIME 1 GM in SODIUM CHL 0.9% 50 ML IV SCH (17:47)
[2020-11-14] MEDS ORDERED: HEPARIN 1,000 UNITS/ml 1ML VIAL ONE (18:07)
[2020-11-14] MEDS: SODIUM BICARBONATE 50ML VIAL 150 ML in D5W 5% 1,000 ML IV SCH (21:23)
[2020-11-15] VITALS (106 sets, daily range): BP systolic 74–162; BP diastolic 37–70
[2020-11-15] MEDS: MIDAZOLAM DRIP 50 mg/50mL 50 ML IV SCH ×5 (00:01→22:02)
[2020-11-15] MEDS: ACCU-CHEK COMFORT CURVE STRIP VI SCH ×9 (00:01→19:45)
[2020-11-15 00:24] LABS: INR 1.17 (0.9-1.15); Partial Thromboplastin Time 32.2 sec (23.0-31.2)
[2020-11-15] MEDS ORDERED: HEPARIN SODIUM (PORCINE) 5000 UNITS/ML 1ML VIAL IV ONE (00:45)
[2020-11-15] MEDS ORDERED: HEPARIN DRIP/D5W 100UNITS/ML 250 ML IV SCH (00:45)
[2020-11-15] MEDS ORDERED: HEPARIN DRIP/D5W 100UNITS/ML 250 ML IV ONE (00:59)
[2020-11-15] MEDS: HEPARIN DRIP/D5W 100UNITS/ML 250 ML IV SCH (01:16)
[2020-11-15] MEDS: SODIUM CHLORIDE 0.9% 1,000 ML IV SCH ×4 (01:21→11:07)
[2020-11-15] MEDS: NOREPINEPHRINE 8 MG/250ML KIT 250 ML IV SCH ×2 (01:40→14:48)
[2020-11-15] MEDS: PROPOFOL 100 ML IV SCH ×3 (03:00→14:46)
[2020-11-15] MEDS: fentaNYL Drip 2500mCg/250mlNS 250 ML IV SCH ×2 (05:50→15:07)
[2020-11-15 05:57] LABS: Basophils # (auto) 0 10 ^3/uL (0-0.2); Basophils % (auto) 0.3 % (0.0-2.0); Eosinophils # (auto) 0 10 ^3/uL (0-0.8); Hematocrit 26.4 % (36.0-46.0); Hemoglobin 8.7 g/dL (12.2-16.2); Lymphocytes # (auto) 2.8 10 ^3/uL (0.4-5.4); Lymphocytes % (auto) 22.9 % (10.0-50.0); Mean Corpuscular Hemoglobin 28.7 pg (28.0-32.0); Mean Corpuscular Hgb Conc. 32.9 g/dL (32.0-36.0); Mean Corpuscular Volume 87.3 fL (80.0-100.0); Monocytes # (auto) 1.8 10 ^3/uL (0-1.3); Neutrophils # (auto) 7.6 10 ^3/uL (1.6-8.6); Neutrophils % (auto) 61.8 % (37.0-80.0); Red Blood Cells 3.02 10^6/uL (4.0-5.20); Red Cell Distribution Width 14.5 % (11.8-14.3); White Blood Cell 12.3 10^3/uL (4.4-10.8)
[2020-11-15] MEDS ORDERED: InsuLIN R (HUMAN) 100 UNITS in SODIUM CHL 0.9% 99 ML IV SCH (06:15)
[2020-11-15] MEDS ORDERED: DEXTROSE (50%) 50ML SYRG IV PRN ×2 (06:15→09:15)
[2020-11-15 06:21] LABS: Albumin 2.3 g/dL (3.4-5.0); BUN/Creatinine Ratio 13.6
[2020-11-15 06:31] LABS: Bilirubin, Total 0.4 mg/dL (0.2-1.0)
[2020-11-15 06:38] LABS: Potassium 5.7 mmol/L (3.5-5.1)
[2020-11-15] MEDS ORDERED: CALCIUM GLUC 1,000mg/50ml-NS 50 ML IV ONE (07:00)
[2020-11-15] MEDS ORDERED: DEXTROSE (50%) 50ML SYRG IV ONE (07:00)
[2020-11-15] MEDS ORDERED: InsuLIN REG 1unit/0.01ml Soln (100units/ml) IV ONE (07:00)
[2020-11-15] MEDS ORDERED: ACCU-CHEK COMFORT CURVE STRIP VI SCH (07:30)
[2020-11-15] MEDS ORDERED: SODIUM CHL 0.9% 1000 ML BAG XX ONE (07:30)
[2020-11-15 08:04] LABS: INR 1.22 (0.9-1.15)
[2020-11-15 08:12] LABS: Partial Thromboplastin Time 111.6 sec (23.0-31.2)
[2020-11-15] MEDS: ENOXAPARIN SOD 30 MG/0.3 ML SYRINGE SC SCH (09:09)
[2020-11-15] MEDS: INSULIN LANTUS (GLARGINE) 1 /0.01ml (100units/ml) SC SCH (10:00)
[2020-11-15] MEDS ORDERED: PANTOPRAZOLE 40 MG/10 ML VIAL INJ IV SCH (10:00)
[2020-11-15] MEDS: ASPirin 325 MG TAB PO SCH (11:07)
[2020-11-15] MEDS: SODIUM BICARBONATE 50ML VIAL 150 ML in D5W 5% 1,000 ML IV SCH (11:07)
[2020-11-15] MEDS: InsuLIN REG 1unit/0.01ml Soln (100units/ml) SC SCH ×3 (11:22→19:47)
[2020-11-15 11:24] LABS: Magnesium 2.3 mg/dL (1.6-2.6); Phosphorus 5.7 mg/dL (2.5-4.90)
[2020-11-15 13:21] LABS: Basophils # (auto) 0 10 ^3/uL (0-0.2); Basophils % (auto) 0.5 % (0.0-2.0); Eosinophils # (auto) 0 10 ^3/uL (0-0.8); Eosinophils % (auto) 0.1 % (0.0-7.0); Hematocrit 25.9 % (36.0-46.0); Hemoglobin 8.7 g/dL (12.2-16.2); Lymphocytes # (auto) 2.6 10 ^3/uL (0.4-5.4); Lymphocytes % (auto) 26.9 % (10.0-50.0); Mean Corpuscular Hemoglobin 28.5 pg (28.0-32.0); Mean Corpuscular Hgb Conc. 33.6 g/dL (32.0-36.0); Mean Corpuscular Volume 84.9 fL (80.0-100.0); Monocytes # (auto) 1.4 10 ^3/uL (0-1.3); Monocytes % (auto) 14.6 % (0.0-12.0); Neutrophils # (auto) 5.6 10 ^3/uL (1.6-8.6); Neutrophils % (auto) 57.9 % (37.0-80.0); Red Blood Cells 3.05 10^6/uL (4.0-5.20); Red Cell Distribution Width 14.4 % (11.8-14.3); White Blood Cell 9.7 10^3/uL (4.4-10.8)
[2020-11-15 13:29] LABS: Albumin 2.2 g/dL (3.4-5.0); Calcium 6.8 mg/dL (8.5-10.1); Potassium 4.2 mmol/L (3.5-5.1)
[2020-11-15 13:32] LABS: BUN/Creatinine Ratio 12.2; Bilirubin, Total 0.4 mg/dL (0.2-1.0); Lactic Acid w/Reflex 6.7 mmol/L (0.4-2.0); Total Protein 4.8 g/dL (6.4-8.2)
[2020-11-15 14:23] LABS: INR 1.14 (0.9-1.15)
[2020-11-15 14:25] LABS: Partial Thromboplastin Time 114.7 sec (23.0-31.2)
[2020-11-15] MEDS ORDERED: BUMETANIDE 2.5mg/10ml (0.25 mg/ml) INJ IV ONE (14:30)
[2020-11-15] MEDS: CEFEPIME 1 GM in SODIUM CHL 0.9% 50 ML IV SCH (14:47)
[2020-11-15] MEDS ORDERED: OMEP20TA PO (16:30)
[2020-11-15] MEDS ORDERED: TICA90TA PO (16:30)
[2020-11-15] MEDS ORDERED: ASPI81CH49 PO (16:30)
[2020-11-15] MEDS ORDERED: DULO20CA PO (16:30)
[2020-11-15] MEDS ORDERED: TRAZ-181 PO (16:30)
[2020-11-15] MEDS ORDERED: GABA-339 PO (16:30)
[2020-11-15] MEDS ORDERED: MIRT1TAB40 PO (16:30)
[2020-11-15] MEDS ORDERED: LURA40TA PO (16:30)
[2020-11-15] MEDS ORDERED: METF-372 PO (16:30)
[2020-11-15] MEDS ORDERED: AMIT1TAB34 PO (16:30)
[2020-11-15] MEDS ORDERED: LORA1TAB23 PO (16:30)
[2020-11-15] MEDS ORDERED: GLIP10TA9 PO (16:30)
[2020-11-15 20:11] LABS: Alcohol, Urine < 3.0 mg/dL (0-10); Amphetamine Screen, Urine NEGATIVE (NEGATIVE); Barbiturate Scree,Urine NEGATIVE (NEGATIVE); Benzodiazephine Screen, Urine POSITIVE (NEGATIVE); Cannabinoid Screen, Urine NEGATIVE (NEGATIVE); Cocaine Screen, Urine NEGATIVE (NEGATIVE); Opiate Scree,Urine NEGATIVE (NEGATIVE); Phencyclidine Screen, Urine NEGATIVE (NEGATIVE)
[2020-11-15] MEDS: PANTOPRAZOLE 40 MG/10 ML VIAL INJ IV SCH (21:34)
[2020-11-15 22:52] LABS: Basophils # (auto) 0 10 ^3/uL (0-0.2); Basophils % (auto) 0.5 % (0.0-2.0); Eosinophils # (auto) 0 10 ^3/uL (0-0.8); Eosinophils % (auto) 0.3 % (0.0-7.0); Hemoglobin 8.6 g/dL (12.2-16.2); Lymphocytes # (auto) 2.2 10 ^3/uL (0.4-5.4); Lymphocytes % (auto) 26.1 % (10.0-50.0); Mean Corpuscular Hemoglobin 29.5 pg (28.0-32.0); Mean Corpuscular Hgb Conc. 34.6 g/dL (32.0-36.0); Mean Corpuscular Volume 85.4 fL (80.0-100.0); Monocytes # (auto) 1.4 10 ^3/uL (0-1.3); Monocytes % (auto) 16.5 % (0.0-12.0); Neutrophils # (auto) 4.9 10 ^3/uL (1.6-8.6); Neutrophils % (auto) 56.6 % (37.0-80.0); Nucleated Red Blood Cells % 0.1 %; Red Blood Cells 2.93 10^6/uL (4.0-5.20); Red Cell Distribution Width 14.5 % (11.8-14.3); White Blood Cell 8.6 10^3/uL (4.4-10.8)
[2020-11-15 23:11] LABS: Albumin 2.1 g/dL (3.4-5.0); Calcium 6.9 mg/dL (8.5-10.1)
[2020-11-15 23:13] LABS: BUN/Creatinine Ratio 11.6
[2020-11-15 23:19] LABS: INR 1.07 (0.9-1.15); Partial Thromboplastin Time 36.6 sec (23.0-31.2)
[2020-11-15 23:29] LABS: Bilirubin, Total 0.3 mg/dL (0.2-1.0); Total Protein 5.1 g/dL (6.4-8.2)
[2020-11-16] VITALS (86 sets, daily range): BP systolic 89–153; BP diastolic 42–65
[2020-11-16] MEDS: ACCU-CHEK COMFORT CURVE STRIP VI SCH ×6 (00:03→22:25)
[2020-11-16] MEDS: InsuLIN REG 1unit/0.01ml Soln (100units/ml) SC SCH ×6 (00:05→22:25)
[2020-11-16] MEDS: MIDAZOLAM DRIP 50 mg/50mL 50 ML IV SCH ×5 (01:16→16:57)
[2020-11-16] MEDS: PROPOFOL 100 ML IV SCH ×4 (03:24→18:41)
[2020-11-16 05:16] LABS: Hematocrit 24.1 % (36.0-46.0); Hemoglobin 8.3 g/dL (12.2-16.2); Mean Corpuscular Hemoglobin 29.2 pg (28.0-32.0); Mean Corpuscular Hgb Conc. 34.6 g/dL (32.0-36.0); Mean Corpuscular Volume 84.3 fL (80.0-100.0); Red Blood Cells 2.85 10^6/uL (4.0-5.20); Red Cell Distribution Width 14.4 % (11.8-14.3); White Blood Cell 7.6 10^3/uL (4.4-10.8)
[2020-11-16 05:24] LABS: Basophils % (manual) 0 (0.0-2.0); Blast Cells 0; Metamyelocytes % 0; Myelocytes % 0; Promyelocytes % 0; Reactive Lymphocytes 0
[2020-11-16 05:28] LABS: INR 1.11 (0.9-1.15); Partial Thromboplastin Time 41.1 sec (23.0-31.2)
[2020-11-16 05:31] LABS: Albumin 2.2 g/dL (3.4-5.0); Calcium 6.5 mg/dL (8.5-10.1); Potassium 5.1 mmol/L (3.5-5.1)
[2020-11-16 05:34] LABS: BUN/Creatinine Ratio 11.1; Bilirubin, Total 0.4 mg/dL (0.2-1.0)
[2020-11-16] MEDS: fentaNYL Drip 2500mCg/250mlNS 250 ML IV SCH ×2 (05:49→16:56)
[2020-11-16 06:53] LABS: Band Neutrophils % (manual) 3; Eosinophils % (manual) 2 (0-7)
[2020-11-16 06:55] LABS: Lymphocytes % (manual) 28 (10.0-50.0); Monocytes % (manual) 12 (0-12)
[2020-11-16] MEDS ORDERED: SODIUM CHL 0.9% 1000 ML BAG XX ONE (07:00)
[2020-11-16] MEDS: NOREPINEPHRINE 8 MG/250ML KIT 250 ML IV SCH (07:42)
[2020-11-16] MEDS: PANTOPRAZOLE 40 MG/10 ML VIAL INJ IV SCH ×2 (10:00→22:26)
[2020-11-16] MEDS: ASPirin 325 MG TAB PO SCH (10:00)
[2020-11-16] MEDS: INSULIN LANTUS (GLARGINE) 1 /0.01ml (100units/ml) SC SCH (12:31)
[2020-11-16 13:02] LABS: INR 1.11 (0.9-1.15); Partial Thromboplastin Time 51.6 sec (23.0-31.2)
[2020-11-16] MEDS: HEPARIN DRIP/D5W 100UNITS/ML 250 ML IV SCH (13:20)
[2020-11-16] MEDS: CEFEPIME 1 GM in SODIUM CHL 0.9% 50 ML IV SCH (14:53)
[2020-11-16 15:01] LABS: Hepatitis A Ab IgM Negative; Hepatitis B Core IgM Negative
[2020-11-16 15:02] LABS: Hepatitis B Surface Antigen Negative (Negative); Hepatitis C Antibody Negative (Negative)
[2020-11-16 19:29] LABS: INR 1.15 (0.9-1.15)
[2020-11-16 19:36] LABS: Partial Thromboplastin Time 94.5 sec (23.0-31.2)
[2020-11-16] MEDS ORDERED: EPOETIN ALFA-EPBX 4,000 UNIT/ML VIAL SC ONE (21:00)
[2020-11-17] VITALS (69 sets, daily range): BP systolic 89–150; BP diastolic 38–62
[2020-11-17] MEDS: ACCU-CHEK COMFORT CURVE STRIP VI SCH ×6 (04:00→20:00)
[2020-11-17] MEDS: InsuLIN REG 1unit/0.01ml Soln (100units/ml) SC SCH ×6 (04:00→20:00)
[2020-11-17 05:13] LABS: Basophils # (auto) 0 10 ^3/uL (0-0.2); Basophils % (auto) 0.7 % (0.0-2.0); Eosinophils # (auto) 0.1 10 ^3/uL (0-0.8); Eosinophils % (auto) 1.6 % (0.0-7.0); Hematocrit 23.4 % (36.0-46.0); Hemoglobin 8.1 g/dL (12.2-16.2); Lymphocytes # (auto) 1.2 10 ^3/uL (0.4-5.4); Lymphocytes % (auto) 27.4 % (10.0-50.0); Mean Corpuscular Hemoglobin 29.4 pg (28.0-32.0); Mean Corpuscular Hgb Conc. 34.8 g/dL (32.0-36.0); Mean Corpuscular Volume 84.4 fL (80.0-100.0); Monocytes # (auto) 0.7 10 ^3/uL (0-1.3); Monocytes % (auto) 16.6 % (0.0-12.0); Neutrophils # (auto) 2.4 10 ^3/uL (1.6-8.6); Neutrophils % (auto) 53.7 % (37.0-80.0); Red Blood Cells 2.77 10^6/uL (4.0-5.20); Red Cell Distribution Width 14.4 % (11.8-14.3); White Blood Cell 4.4 10^3/uL (4.4-10.8)
[2020-11-17 05:25] LABS: INR 1.16 (0.9-1.15); Partial Thromboplastin Time 39.1 sec (23.0-31.2)
[2020-11-17 05:29] LABS: Calcium 7.1 mg/dL (8.5-10.1); Potassium 4.3 mmol/L (3.5-5.1)
[2020-11-17 05:32] LABS: BUN/Creatinine Ratio 8.6; Bilirubin, Total 0.5 mg/dL (0.2-1.0); Total Protein 5.1 g/dL (6.4-8.2)
[2020-11-17] MEDS: BUMETANIDE 2.5mg/10ml (0.25 mg/ml) INJ IV SCH ×2 (06:00→17:47)
[2020-11-17] MEDS: HEPARIN DRIP/D5W 100UNITS/ML 250 ML IV SCH (07:46)
[2020-11-17] MEDS: ASPirin 325 MG TAB PO SCH (10:02)
[2020-11-17] MEDS: PANTOPRAZOLE 40 MG/10 ML VIAL INJ IV SCH (10:02)
[2020-11-17] MEDS: INSULIN LANTUS (GLARGINE) 1 /0.01ml (100units/ml) SC SCH (12:00)
[2020-11-17] MEDS: NOREPINEPHRINE 8 MG/250ML KIT 250 ML IV SCH (13:15)
[2020-11-17 13:53] LABS: INR 1.15 (0.9-1.15); Partial Thromboplastin Time 42.3 sec (23.0-31.2)
[2020-11-17] MEDS: CEFEPIME 1 GM in SODIUM CHL 0.9% 50 ML IV SCH (15:00)
[2020-11-17] MEDS: MEROPENEM 1GM IVPB 100 ML IV SCH (17:46)
[2020-11-17] MEDS: HEPARIN SODIUM (PORCINE) 5000 UNITS/ML 1ML VIAL SC SCH (22:00)
[2020-11-18] VITALS (70 sets, daily range): BP systolic 98–165; BP diastolic 40–76
[2020-11-18] MEDS: PANTOPRAZOLE 40 MG/10 ML VIAL INJ IV SCH ×3 (01:11→22:00)
[2020-11-18] MEDS: ACCU-CHEK COMFORT CURVE STRIP VI SCH ×6 (01:25→20:00)
[2020-11-18] MEDS: InsuLIN REG 1unit/0.01ml Soln (100units/ml) SC SCH ×6 (04:00→20:00)
[2020-11-18] MEDS: BUMETANIDE 2.5mg/10ml (0.25 mg/ml) INJ IV SCH ×2 (06:00→18:13)
[2020-11-18] MEDS: MEROPENEM 1GM IVPB 100 ML IV SCH (06:00)
[2020-11-18 07:25] LABS: Basophils # (auto) 0 10 ^3/uL (0-0.2); Eosinophils # (auto) 0.1 10 ^3/uL (0-0.8); Eosinophils % (auto) 1.5 % (0.0-7.0); Lymphocytes # (auto) 0.8 10 ^3/uL (0.4-5.4); Mean Corpuscular Hemoglobin 29.5 pg (28.0-32.0); Neutrophils # (auto) 3.1 10 ^3/uL (1.6-8.6); Red Blood Cells 2.72 10^6/uL (4.0-5.20); White Blood Cell 4.6 10^3/uL (4.4-10.8)
[2020-11-18 07:30] LABS: Basophils % (auto) 0.4 % (0.0-2.0); Lymphocytes % (auto) 17.1 % (10.0-50.0); Mean Corpuscular Hgb Conc. 34.9 g/dL (32.0-36.0); Mean Corpuscular Volume 84.6 fL (80.0-100.0); Monocytes # (auto) 0.7 10 ^3/uL (0-1.3); Monocytes % (auto) 14.7 % (0.0-12.0); Neutrophils % (auto) 66.3 % (37.0-80.0); Red Cell Distribution Width 14.3 % (11.8-14.3)
[2020-11-18 07:51] LABS: Albumin 1.9 g/dL (3.4-5.0); BUN/Creatinine Ratio 8.5; Bilirubin, Total 0.6 mg/dL (0.2-1.0); Calcium 7.7 mg/dL (8.5-10.1); Magnesium 2.1 mg/dL (1.6-2.6); Potassium 3.7 mmol/L (3.5-5.1); Total Protein 5.7 g/dL (6.4-8.2)
[2020-11-18] MEDS: PROPOFOL 100 ML IV SCH (08:20)
[2020-11-18] MEDS: HEPARIN SODIUM (PORCINE) 5000 UNITS/ML 1ML VIAL SC SCH ×2 (09:51→22:00)
[2020-11-18] MEDS: ASPirin 325 MG TAB PO SCH (09:51)
[2020-11-18] MEDS: INSULIN LANTUS (GLARGINE) 1 /0.01ml (100units/ml) SC SCH (10:00)
[2020-11-18] MEDS ORDERED: diphenhdrAMINE HCL 50 MG/1 ML VL IV PRN (12:15)
[2020-11-18] MEDS: MIDAZOLAM DRIP 50 mg/50mL 50 ML IV SCH (12:36)
[2020-11-18] MEDS: fentaNYL Drip 2500mCg/250mlNS 250 ML IV SCH (12:36)
[2020-11-18] MEDS: NOREPINEPHRINE 8 MG/250ML KIT 250 ML IV SCH (13:15)
[2020-11-18] MEDS ORDERED: Glucerna 1.2 Cal 1Liter BOTTLE GT SCH (16:00)
[2020-11-18] MEDS: MEROPENEM 500MG IVPB 50 ML IV SCH (22:00)
[2020-11-19] VITALS (80 sets, daily range): BP systolic 100–171; BP diastolic 48–74
[2020-11-19] MEDS: PROPOFOL 100 ML IV SCH (03:00)
[2020-11-19] MEDS: ACCU-CHEK COMFORT CURVE STRIP VI SCH ×6 (04:00→20:00)
[2020-11-19] MEDS: InsuLIN REG 1unit/0.01ml Soln (100units/ml) SC SCH ×6 (04:00→20:00)
[2020-11-19 04:43] LABS: Albumin 1.9 g/dL (3.4-5.0); Calcium 7.8 mg/dL (8.5-10.1); Magnesium 1.7 mg/dL (1.6-2.6); Potassium 3.2 mmol/L (3.5-5.1)
[2020-11-19 04:46] LABS: BUN/Creatinine Ratio 9.6; Bilirubin, Total 0.4 mg/dL (0.2-1.0)
[2020-11-19] MEDS: BUMETANIDE 2.5mg/10ml (0.25 mg/ml) INJ IV SCH ×2 (06:00→18:16)
[2020-11-19] MEDS ORDERED: SODIUM CHL 0.9% 1000 ML BAG XX ONE (07:00)
[2020-11-19] MEDS: PANTOPRAZOLE 40 MG/10 ML VIAL INJ IV SCH ×2 (10:16→22:00)
[2020-11-19] MEDS: HEPARIN SODIUM (PORCINE) 5000 UNITS/ML 1ML VIAL SC SCH ×2 (10:17→22:00)
[2020-11-19] MEDS: ASPirin 325 MG TAB PO SCH (10:18)
[2020-11-19] MEDS: MEROPENEM 500MG IVPB 50 ML IV SCH ×2 (10:19→22:00)
[2020-11-19] MEDS: INSULIN LANTUS (GLARGINE) 1 /0.01ml (100units/ml) SC SCH (10:46)
[2020-11-19] MEDS: fentaNYL Drip 2500mCg/250mlNS 250 ML IV SCH (12:51)
[2020-11-19] MEDS: NOREPINEPHRINE 8 MG/250ML KIT 250 ML IV SCH (12:51)
[2020-11-19] MEDS: MIDAZOLAM DRIP 50 mg/50mL 50 ML IV SCH (12:52)
[2020-11-19] MEDS ORDERED: Nepro With Carb Steady 1 Liter Bottle GT SCH (16:45)
[2020-11-19] MEDS ORDERED: EPOETIN ALFA-EPBX 10,000 UNIT/1ML VIAL SC ONE (21:00)
[2020-11-20] VITALS (94 sets, daily range): BP systolic 78–175; BP diastolic 36–71
[2020-11-20 04:16] LABS: Hemoglobin 8.3 g/dL (12.2-16.2)
[2020-11-20 04:17] LABS: Hematocrit 24.4 % (36.0-46.0); Mean Corpuscular Hemoglobin 29.1 pg (28.0-32.0); Mean Corpuscular Hgb Conc. 34.1 g/dL (32.0-36.0); Mean Corpuscular Volume 85.3 fL (80.0-100.0); Red Blood Cells 2.86 10^6/uL (4.0-5.20); Red Cell Distribution Width 14.1 % (11.8-14.3); White Blood Cell 5.7 10^3/uL (4.4-10.8)
[2020-11-20 04:26] LABS: Basophils % (manual) 0 (0.0-2.0); Blast Cells 0; Myelocytes % 0; Promyelocytes % 0; Reactive Lymphocytes 0
[2020-11-20 04:32] LABS: Albumin 2.1 g/dL (3.4-5.0); Calcium 8.1 mg/dL (8.5-10.1); Magnesium 1.8 mg/dL (1.6-2.6); Potassium 3.1 mmol/L (3.5-5.1)
[2020-11-20 04:35] LABS: BUN/Creatinine Ratio 12.5; Bilirubin, Total 0.4 mg/dL (0.2-1.0); Total Protein 6.3 g/dL (6.4-8.2)
[2020-11-20 05:15] LABS: Band Neutrophils % (manual) 4; Eosinophils % (manual) 1 (0-7); Lymphocytes % (manual) 21 (10.0-50.0); Metamyelocytes % 1; Monocytes % (manual) 14 (0-12)
[2020-11-20] MEDS: ACCU-CHEK COMFORT CURVE STRIP VI SCH ×2 (05:50)
[2020-11-20] MEDS: BUMETANIDE 2.5mg/10ml (0.25 mg/ml) INJ IV SCH ×2 (06:00→18:32)
[2020-11-20] MEDS: InsuLIN REG 1unit/0.01ml Soln (100units/ml) SC SCH ×2 (06:28)
[2020-11-20] MEDS ORDERED: POTASSIUM EFFERVESENT TAB 25 MEQ GT ONE (07:15)
[2020-11-20] MEDS ORDERED: DEXTROSE (50%) 50ML SYRG IV PRN (08:00)
[2020-11-20] MEDS ORDERED: hydrALAZINE HCL 20 MG/ML VL ONE (08:33)
[2020-11-20] MEDS: hydrALAZINE HCL 20 MG/ML VL IV PRN (09:00)
[2020-11-20] MEDS: PANTOPRAZOLE 40 MG/10 ML VIAL INJ IV SCH ×2 (09:13→22:13)
[2020-11-20] MEDS: MEROPENEM 500MG IVPB 50 ML IV SCH ×2 (09:13→22:13)
[2020-11-20] MEDS: INSULIN LANTUS (GLARGINE) 1 /0.01ml (100units/ml) SC SCH (09:14)
[2020-11-20] MEDS: ASPirin 325 MG TAB PO SCH (09:14)
[2020-11-20] MEDS: HEPARIN SODIUM (PORCINE) 5000 UNITS/ML 1ML VIAL SC SCH ×2 (10:00→22:14)
[2020-11-20] MEDS: PROPOFOL 100 ML IV SCH (10:34)
[2020-11-20] MEDS ORDERED: ACCU-CHEK COMFORT CURVE STRIP VI SCH ×2 (11:30→17:00)
[2020-11-20] MEDS ORDERED: InsuLIN REG 1unit/0.01ml Soln (100units/ml) SC SCH ×2 (11:30→17:00)
[2020-11-20] MEDS ORDERED: CLINIMIX PER PHARMACY 0 ML IV SCH ×2 (13:15→17:45)
[2020-11-20] MEDS: fentaNYL Drip 2500mCg/250mlNS 250 ML IV SCH (14:18)
[2020-11-20] MEDS: MIDAZOLAM DRIP 50 mg/50mL 50 ML IV SCH (14:18)
[2020-11-20] MEDS: NOREPINEPHRINE 8 MG/250ML KIT 250 ML IV SCH (14:18)
[2020-11-20] MEDS ORDERED: MORPHINE SULFATE INJECTION 2 MG/ML SYRG ONE (14:46)
[2020-11-20] MEDS: MORPHINE SULFATE INJECTION 2 MG/ML SYRG IV PRN ×2 (15:05→22:12)
[2020-11-20] MEDS ORDERED: DEXTROSE (50%) 50ML SYRG IV SCH (15:14)
[2020-11-20] MEDS ORDERED: AMINO ACID INFUSION IN D10W 1,000 ML IV NR (20:00)
[2020-11-21] VITALS (84 sets, daily range): BP systolic 122–182; BP diastolic 50–148
[2020-11-21] MEDS ORDERED: InsuLIN REG 1unit/0.01ml Soln (100units/ml) SC SCH
[2020-11-21] MEDS ORDERED: DEXTROSE (50%) 50ML SYRG IV SCH
[2020-11-21] MEDS ORDERED: ACCU-CHEK COMFORT CURVE STRIP VI SCH
[2020-11-21] MEDS: ACCU-CHEK COMFORT CURVE STRIP VI SCH ×4 (00:05→17:24)
[2020-11-21] MEDS: InsuLIN REG 1unit/0.01ml Soln (100units/ml) SC SCH ×4 (00:06→17:23)
[2020-11-21] MEDS: MORPHINE SULFATE INJECTION 2 MG/ML SYRG IV PRN ×2 (01:58→22:44)
[2020-11-21] MEDS: PROPOFOL 100 ML IV SCH (03:00)
[2020-11-21] MEDS: hydrALAZINE HCL 20 MG/ML VL IV PRN (03:09)
[2020-11-21 04:48] LABS: Basophils # (auto) 0 10 ^3/uL (0-0.2); Lymphocytes # (auto) 1.3 10 ^3/uL (0.4-5.4); Nucleated Red Blood Cells % 0.1 %; White Blood Cell 5.9 10^3/uL (4.4-10.8)
[2020-11-21 04:50] LABS: Basophils % (auto) 0.7 % (0.0-2.0); Eosinophils # (auto) 0.1 10 ^3/uL (0-0.8); Eosinophils % (auto) 2.5 % (0.0-7.0); Hematocrit 23.8 % (36.0-46.0); Hemoglobin 8.5 g/dL (12.2-16.2); Lymphocytes % (auto) 21.4 % (10.0-50.0); Mean Corpuscular Hemoglobin 29.9 pg (28.0-32.0); Mean Corpuscular Hgb Conc. 35.5 g/dL (32.0-36.0); Monocytes % (auto) 17.2 % (0.0-12.0); Neutrophils # (auto) 3.4 10 ^3/uL (1.6-8.6); Neutrophils % (auto) 58.2 % (37.0-80.0); Red Blood Cells 2.84 10^6/uL (4.0-5.20); Red Cell Distribution Width 13.7 % (11.8-14.3)
[2020-11-21 04:56] LABS: Albumin 2.1 g/dL (3.4-5.0); Calcium 8.3 mg/dL (8.5-10.1)
[2020-11-21 05:04] LABS: Bilirubin, Total 0.3 mg/dL (0.2-1.0); Magnesium 1.6 mg/dL (1.6-2.6); Phosphorus 2.5 mg/dL (2.5-4.90); Pre Albumin 12.4 mg/dL (20.0-40.0); Total Protein 6.1 g/dL (6.4-8.2)
[2020-11-21 05:10] LABS: Potassium 2.8 mmol/L (3.5-5.1)
[2020-11-21] MEDS: BUMETANIDE 2.5mg/10ml (0.25 mg/ml) INJ IV SCH ×2 (06:00→17:30)
[2020-11-21] MEDS: POTASSIUM CHL 20MEQ/100ML 100 ML IV SCH ×2 (06:37→07:45)
[2020-11-21] MEDS: MAGNESIUM SULFATE 1GM/100ML 100 ML IV SCH ×3 (07:09→08:51)
[2020-11-21] MEDS ORDERED: POTASSIUM EFFERVESENT TAB 25 MEQ GT ONE (09:45)
[2020-11-21] MEDS: INSULIN LANTUS (GLARGINE) 1 /0.01ml (100units/ml) SC SCH (10:00)
[2020-11-21] MEDS: ASPirin 325 MG TAB PO SCH (10:07)
[2020-11-21] MEDS: PANTOPRAZOLE 40 MG/10 ML VIAL INJ IV SCH ×2 (10:07→21:02)
[2020-11-21] MEDS: MEROPENEM 500MG IVPB 50 ML IV SCH ×2 (10:14→21:02)
[2020-11-21] MEDS: HEPARIN SODIUM (PORCINE) 5000 UNITS/ML 1ML VIAL SC SCH ×2 (10:17→21:03)
[2020-11-21 18:41] LABS: BUN/Creatinine Ratio 21.2; Calcium 8.4 mg/dL (8.5-10.1); Magnesium 2.2 mg/dL (1.6-2.6); Potassium 3.4 mmol/L (3.5-5.1)
[2020-11-21] MEDS: AMINO ACID INFUSION IN D10W 1,000 ML IV NR (20:12)
[2020-11-22] VITALS (28 sets, daily range): BP systolic 93–180; BP diastolic 51–97
[2020-11-22] MEDS: ACCU-CHEK COMFORT CURVE STRIP VI SCH ×4 (00:05→18:09)
[2020-11-22] MEDS: MORPHINE SULFATE INJECTION 2 MG/ML SYRG IV PRN ×4 (02:55→20:31)
[2020-11-22] MEDS: PROPOFOL 100 ML IV SCH (03:00)
[2020-11-22 04:38] LABS: Basophils # (auto) 0.1 10 ^3/uL (0-0.2); Basophils % (auto) 1.1 % (0.0-2.0); Eosinophils # (auto) 0.1 10 ^3/uL (0-0.8); Hematocrit 25.3 % (36.0-46.0); Hemoglobin 8.6 g/dL (12.2-16.2); Lymphocytes # (auto) 1.4 10 ^3/uL (0.4-5.4); Lymphocytes % (auto) 22.5 % (10.0-50.0); Mean Corpuscular Volume 85.1 fL (80.0-100.0); Monocytes # (auto) 1.1 10 ^3/uL (0-1.3); Monocytes % (auto) 17.1 % (0.0-12.0); Neutrophils # (auto) 3.6 10 ^3/uL (1.6-8.6); Neutrophils % (auto) 57.3 % (37.0-80.0); Red Blood Cells 2.98 10^6/uL (4.0-5.20); Red Cell Distribution Width 13.6 % (11.8-14.3); White Blood Cell 6.3 10^3/uL (4.4-10.8)
[2020-11-22 04:52] LABS: Albumin 2.3 g/dL (3.4-5.0); Calcium 8.2 mg/dL (8.5-10.1); Magnesium 1.8 mg/dL (1.6-2.6); Potassium 3.1 mmol/L (3.5-5.1)
[2020-11-22 04:55] LABS: BUN/Creatinine Ratio 24.8; Bilirubin, Total 0.3 mg/dL (0.2-1.0); Phosphorus 1.9 mg/dL (2.5-4.90); Total Protein 6.2 g/dL (6.4-8.2)
[2020-11-22] MEDS: BUMETANIDE 2.5mg/10ml (0.25 mg/ml) INJ IV SCH (06:00)
[2020-11-22] MEDS: InsuLIN REG 1unit/0.01ml Soln (100units/ml) SC SCH ×4 (06:11→18:18)
[2020-11-22] MEDS ORDERED: LORazepam 2MG/ML-1ML VIAL IV PRN (08:45)
[2020-11-22] MEDS: PANTOPRAZOLE 40 MG/10 ML VIAL INJ IV SCH ×2 (09:09→20:24)
[2020-11-22] MEDS: HEPARIN SODIUM (PORCINE) 5000 UNITS/ML 1ML VIAL SC SCH ×2 (09:13→20:24)
[2020-11-22] MEDS: MAGNESIUM SULFATE 1GM/100ML 100 ML IV SCH ×2 (09:43→10:42)
[2020-11-22] MEDS: POTASSIUM CHL 20MEQ/100ML 100 ML IV SCH ×2 (09:43→11:35)
[2020-11-22] MEDS: MEROPENEM 500MG IVPB 50 ML IV SCH (10:00)
[2020-11-22] MEDS: ASPirin 325 MG TAB PO SCH ×2 (10:00→16:32)
[2020-11-22] MEDS: INSULIN LANTUS (GLARGINE) 1 /0.01ml (100units/ml) SC SCH (11:32)
[2020-11-22] MEDS ORDERED: POTASSIUM PHOSPHATE 22 MEQ in SODIUM CHL 0.9% 100 ML IV ONE (12:30)
[2020-11-22] MEDS: MEROPENEM 1GM IVPB 100 ML IV SCH (18:11)
[2020-11-22] MEDS ORDERED: AMINO ACID INFUSION IN D10W 1,000 ML IV NR (20:00)
[2020-11-22] MEDS: AMINO ACID INFUSION IN D10W 1,000 ML IV NR (20:24)
[2020-11-22] MEDS: ALPRAZolam 0.5 MG TAB PO PRN (20:32)
[2020-11-23] VITALS (20 sets, daily range): BP systolic 125–146; BP diastolic 53–75
[2020-11-23] MEDS: ACCU-CHEK COMFORT CURVE STRIP VI SCH ×5 (00:30→22:54)
[2020-11-23] MEDS: InsuLIN REG 1unit/0.01ml Soln (100units/ml) SC SCH ×5 (00:30→22:53)
[2020-11-23 03:50] LABS: Basophils # (auto) 0.1 10 ^3/uL (0-0.2); Basophils % (auto) 1.2 % (0.0-2.0); Eosinophils # (auto) 0.2 10 ^3/uL (0-0.8); Eosinophils % (auto) 3.9 % (0.0-7.0); Hematocrit 25.8 % (36.0-46.0); Hemoglobin 8.7 g/dL (12.2-16.2); Lymphocytes # (auto) 1.8 10 ^3/uL (0.4-5.4); Mean Corpuscular Hemoglobin 28.8 pg (28.0-32.0); Mean Corpuscular Hgb Conc. 33.9 g/dL (32.0-36.0); Monocytes # (auto) 0.8 10 ^3/uL (0-1.3); Monocytes % (auto) 15.7 % (0.0-12.0); Neutrophils # (auto) 2.4 10 ^3/uL (1.6-8.6); Neutrophils % (auto) 45.2 % (37.0-80.0); Nucleated Red Blood Cells % 0.2 %; Red Blood Cells 3.03 10^6/uL (4.0-5.20); White Blood Cell 5.4 10^3/uL (4.4-10.8)
[2020-11-23 04:18] LABS: Albumin 2.2 g/dL (3.4-5.0); BUN/Creatinine Ratio 27.4; Bilirubin, Total 0.3 mg/dL (0.2-1.0); Phosphorus 2.2 mg/dL (2.5-4.90); Total Protein 5.9 g/dL (6.4-8.2)
[2020-11-23] MEDS: MEROPENEM 1GM IVPB 100 ML IV SCH ×3 (04:43→18:29)
[2020-11-23] MEDS: PROPOFOL 100 ML IV SCH (07:30)
[2020-11-23] MEDS: ALPRAZolam 0.5 MG TAB PO PRN ×3 (08:16→23:00)
[2020-11-23] MEDS: MORPHINE SULFATE INJECTION 2 MG/ML SYRG IV PRN ×3 (08:17→19:47)
[2020-11-23] MEDS: POTASSIUM CHL 20MEQ/100ML 100 ML IV SCH ×2 (08:25→10:06)
[2020-11-23] MEDS: PANTOPRAZOLE 40 MG/10 ML VIAL INJ IV SCH ×2 (10:08→22:34)
[2020-11-23] MEDS: ASPirin 81 mg TAB PO SCH (10:08)
[2020-11-23] MEDS: INSULIN LANTUS (GLARGINE) 1 /0.01ml (100units/ml) SC SCH (10:14)
[2020-11-23] MEDS: HEPARIN SODIUM (PORCINE) 5000 UNITS/ML 1ML VIAL SC SCH ×2 (10:15→22:35)
[2020-11-23] MEDS ORDERED: POTASSIUM PHOSPHATE 22 MEQ in SODIUM CHL 0.9% 100 ML IV ONE (12:00)
[2020-11-23] MEDS ORDERED: POTASSIUM CHL 20 Meq TABLET PO SCH (13:30)
[2020-11-23] MEDS ORDERED: AMINO ACID INFUSION IN D10W 1,000 ML IV NR (20:00)
[2020-11-24 05:00] VITALS: BP 132/64
[2020-11-24] MEDS: ACCU-CHEK COMFORT CURVE STRIP VI SCH ×3 (05:39→18:27)
[2020-11-24] MEDS: MORPHINE SULFATE INJECTION 2 MG/ML SYRG IV PRN ×2 (05:39→11:21)
[2020-11-24] MEDS: InsuLIN REG 1unit/0.01ml Soln (100units/ml) SC SCH ×3 (05:50→18:28)
[2020-11-24 06:39] LABS: Potassium 4.2 mmol/L (3.5-5.1)
[2020-11-24 06:52] LABS: Albumin 2.4 g/dL (3.4-5.0); BUN/Creatinine Ratio 28.7; Bilirubin, Total 0.4 mg/dL (0.2-1.0); Calcium 8.1 mg/dL (8.5-10.1); Magnesium 1.7 mg/dL (1.6-2.6); Phosphorus 1.9 mg/dL (2.5-4.90); Total Protein 6.2 g/dL (6.4-8.2)
[2020-11-24] MEDS: PANTOPRAZOLE 40 MG/10 ML VIAL INJ IV SCH ×2 (08:54→21:17)
[2020-11-24] MEDS: ASPirin 81 mg TAB PO SCH (08:55)
[2020-11-24] MEDS: HEPARIN SODIUM (PORCINE) 5000 UNITS/ML 1ML VIAL SC SCH ×2 (08:55→21:17)
[2020-11-24] MEDS: INSULIN LANTUS (GLARGINE) 1 /0.01ml (100units/ml) SC SCH (08:56)
[2020-11-24 09:00] VITALS: BP 144/68
[2020-11-24 13:00] VITALS: BP 127/59
[2020-11-24] MEDS: MAGNESIUM SULFATE 1GM/100ML 100 ML IV SCH ×2 (14:21→15:31)
[2020-11-24] MEDS ORDERED: SODIUM PHOSP 40 MEQ in D5W 5% 250 ML IV ONE (15:00)
[2020-11-24 17:00] VITALS: BP 136/71
[2020-11-24] MEDS: MEROPENEM 1GM IVPB 100 ML IV SCH (17:30)
[2020-11-24] MEDS ORDERED: AMINO ACID INFUSION IN D10W 1,000 ML IV NR (20:00)
[2020-11-24] MEDS: ALPRAZolam 0.5 MG TAB PO PRN (21:18)
[2020-11-24 22:00] VITALS: BP 122/64
[2020-11-25] MEDS: ACCU-CHEK COMFORT CURVE STRIP VI SCH ×5 (00:03→22:54)
[2020-11-25] MEDS: InsuLIN REG 1unit/0.01ml Soln (100units/ml) SC SCH ×5 (00:05→23:47)
[2020-11-25 05:00] VITALS: BP 132/73
[2020-11-25] MEDS: MEROPENEM 1GM IVPB 100 ML IV SCH ×2 (07:04→17:38)
[2020-11-25 08:23] LABS: Basophils # (auto) 0.1 10 ^3/uL (0-0.2); Basophils % (auto) 1.3 % (0.0-2.0); Eosinophils # (auto) 0.2 10 ^3/uL (0-0.8); Eosinophils % (auto) 2.9 % (0.0-7.0); Hematocrit 26.9 % (36.0-46.0); Hemoglobin 9.1 g/dL (12.2-16.2); Lymphocytes # (auto) 2.1 10 ^3/uL (0.4-5.4); Lymphocytes % (auto) 28.5 % (10.0-50.0); Mean Corpuscular Hemoglobin 28.8 pg (28.0-32.0); Mean Corpuscular Hgb Conc. 33.9 g/dL (32.0-36.0); Mean Corpuscular Volume 85.1 fL (80.0-100.0); Monocytes % (auto) 13.3 % (0.0-12.0); Neutrophils # (auto) 3.9 10 ^3/uL (1.6-8.6); Nucleated Red Blood Cells % 0.1 %; Red Blood Cells 3.16 10^6/uL (4.0-5.20); Red Cell Distribution Width 14.2 % (11.8-14.3); White Blood Cell 7.3 10^3/uL (4.4-10.8)
[2020-11-25 08:50] LABS: Albumin 2.5 g/dL (3.4-5.0); Calcium 8.2 mg/dL (8.5-10.1); Potassium 3.6 mmol/L (3.5-5.1)
[2020-11-25 08:54] LABS: BUN/Creatinine Ratio 21.8; Bilirubin, Total 0.4 mg/dL (0.2-1.0); Phosphorus 2.8 mg/dL (2.5-4.90)
[2020-11-25 09:00] VITALS: BP 144/76
[2020-11-25 09:15] LABS: INR 1.21 (0.9-1.15); Partial Thromboplastin Time 31.6 sec (23.0-31.2)
[2020-11-25] MEDS: ASPirin 81 mg TAB PO SCH (10:48)
[2020-11-25] MEDS: PANTOPRAZOLE 40 MG/10 ML VIAL INJ IV SCH ×2 (10:49→20:32)
[2020-11-25] MEDS: HEPARIN SODIUM (PORCINE) 5000 UNITS/ML 1ML VIAL SC SCH ×2 (10:58→20:52)
[2020-11-25] MEDS: INSULIN LANTUS (GLARGINE) 1 /0.01ml (100units/ml) SC SCH (11:45)
[2020-11-25 13:00] VITALS: BP 129/65
[2020-11-25 17:00] VITALS: BP 129/69
[2020-11-25] MEDS: ONDANSETRON HCL 4 MG/2 ML VIAL IV PRN (20:51)
[2020-11-25 22:00] VITALS: BP 160/49
[2020-11-25 22:59] VITALS: BP 129/68
[2020-11-26] MEDS: ALPRAZolam 0.5 MG TAB PO PRN (00:32)
[2020-11-26] MEDS: ONDANSETRON HCL 4 MG/2 ML VIAL IV PRN (01:03)
[2020-11-26 05:00] VITALS: BP 139/70
[2020-11-26] MEDS: InsuLIN REG 1unit/0.01ml Soln (100units/ml) SC SCH ×3 (06:00→17:37)
[2020-11-26] MEDS: ACCU-CHEK COMFORT CURVE STRIP VI SCH ×3 (06:23→17:37)
[2020-11-26] MEDS: MEROPENEM 1GM IVPB 100 ML IV SCH ×2 (06:23→17:30)
[2020-11-26 08:30] VITALS: BP 135/71
[2020-11-26] MEDS: HEPARIN SODIUM (PORCINE) 5000 UNITS/ML 1ML VIAL SC SCH (10:42)
[2020-11-26] MEDS: PANTOPRAZOLE 40 MG/10 ML VIAL INJ IV SCH (10:42)
[2020-11-26] MEDS: ASPirin 81 mg TAB PO SCH (10:42)
[2020-11-26] MEDS: INSULIN LANTUS (GLARGINE) 1 /0.01ml (100units/ml) SC SCH (10:43)
[2020-11-26 12:30] VITALS: BP 134/71
[2020-11-26] MEDS ORDERED: POLYETHYLENE GLYCOL 17 GM PWDR PO PRN (12:45)
[2020-11-26 17:00] VITALS: BP 113/58
[2020-11-26] MEDS ORDERED: DOCUSATE SOD 100 MG CAP PO SCH (22:00)
== END 2020-11-26 20:30 | DRG 720 ==
LOC: EDBD 11:05 → ER 11:05 → TELE 13:13 → ICU WEST 15:45 → TELE-EAST 11-23 16:55
PROVIDERS: ADMIT Internal Medicine; ATTEND Internal Medicine
PROC: 5A1955Z Respiratory Ventilation, Greater than 96 Consecutive Hours (ICD-10-PCS; principal; 2020-11-14)
PROC: 04HY32Z Insertion of Monitoring Device into Lower Artery, Percutaneous Approach (ICD-10-PCS; 2020-11-14)
PROC: 0BH17EZ Insertion of Endotracheal Airway into Trachea, Via Natural or Artificial Opening (ICD-10-PCS; 2020-11-14)
PROC: 02HV33Z Insertion of Infusion Device into Superior Vena Cava, Percutaneous Approach (ICD-10-PCS; 2020-11-14)
PROC: B548ZZA Ultrasonography of Superior Vena Cava, Guidance (ICD-10-PCS; 2020-11-14)
PROC: 5A1D70Z Performance of Urinary Filtration, Intermittent, Less than 6 Hours Per Day (ICD-10-PCS; 2020-11-15)
PROC: 5A1D70Z Performance of Urinary Filtration, Intermittent, Less than 6 Hours Per Day (ICD-10-PCS; 2020-11-16)
PROC: 5A1D70Z Performance of Urinary Filtration, Intermittent, Less than 6 Hours Per Day (ICD-10-PCS; 2020-11-19)
PROC: 0BP1XDZ Removal of Intraluminal Device from Trachea, External Approach (ICD-10-PCS; 2020-11-21)
PROC: 02HV33Z Insertion of Infusion Device into Superior Vena Cava, Percutaneous Approach (ICD-10-PCS; 2020-11-22)
DX: A41.9 Sepsis, unspecified organism (principal); I21.4 Non-ST elevation (NSTEMI) myocardial infarction; J96.01 Acute respiratory failure with hypoxia; R65.21 Severe sepsis with septic shock; J18.9 Pneumonia, unspecified organism; E44.0 Moderate protein-calorie malnutrition; E11.10 Type 2 diabetes mellitus with ketoacidosis without coma; I13.2 Hypertensive heart and chronic kidney disease with heart failure and with stage 5 chronic kidney disease, or end stage renal disease; N17.9 Acute kidney failure, unspecified; E11.40 Type 2 diabetes mellitus with diabetic neuropathy, unspecified; E87.2 Acidosis; I50.9 Heart failure, unspecified; D64.9 Anemia, unspecified; E87.5 Hyperkalemia; F41.9 Anxiety disorder, unspecified; F31.9 Bipolar disorder, unspecified; N10 Acute pyelonephritis; E11.22 Type 2 diabetes mellitus with diabetic chronic kidney disease; J98.11 Atelectasis; E87.6 Hypokalemia; E86.0 Dehydration; I44.7 Left bundle-branch block, unspecified; Z68.25 Body mass index [BMI] 25.0-25.9, adult; Z79.899 Other long term (current) drug therapy; Z79.84 Long term (current) use of oral hypoglycemic drugs; Z88.0 Allergy status to penicillin; Z88.8 Allergy status to other drugs, medicaments and biological substances; Z90.710 Acquired absence of both cervix and uterus; N18.30 Chronic kidney disease, stage 3 unspecified
CPT/HCPCS: 31500; 36415; 36600; 71045; 71046; 74018; 80048; 80053; 80074; 80307; 81001; 82040; 82805; 82962; 83605; 83690; 83735; 83880; 84100; 84478; 84484; 85007; 85025; 85027; 85610; 85730; 86850; 86900; 86901; 87040; 87070; 87077; 87081; 87086; 87088; 87186; 87205; 87426; 90935; 92610; 93005; 93306; 94002; 94003; 94644; 96365; 96366; 96367; 96368; 96372; 96375; 96376; 97110; 97530; 99291; C9113; G0378; J0696; J1642; J1815; J2185; J2250; J2405; J2704; J3480; J7060

== ENCOUNTER 2020-11-28 01:31 | Inpatient (IN) | payer MEDICAID ==
[~2020-11-28] VITALS: Ht 177.8 cm; Wt 74.8 kg
[~2020-11-28 01:31] MED LIST changes: -ACET-1156 PO; +AMIT10TA6 PO; -AMIT25TA12 PO; -ASPI-543 PO; +ASPI81CH49 PO; -ATOR20TA50 PO; -BUSP15TA60 PO; +DULO20CA PO; -HYDR50TA69 PO; -INSLANTI SC; -LORA0.5T20 PO; +LORA1TAB23 PO; -LURA1TAB PO; +LURA40TA PO; -MIRT-66 PO; +MIRT1TAB40 PO; +OMEP20TA PO; -PERCOT PO; -PROP60CA34 PO; -TEMA7.5C11 PO; +TICA90TA PO; +TRAZ-181 PO
[2020-11-28 03:02] LABS: Alanine Aminotransferase 24 U/L (13-56); Anion Gap 10 (5-15); Aspartate Aminotransferase 17 U/L (15-37); BUN/Creatinine Ratio 17.5; Blood Urea Nitrogen 18 mg/dL (7-18); Calcium 8.6 mg/dL (8.5-10.1); Carbon Dioxide 24 mmol/L (21-32); Chloride 104 mmol/L (98-107); GFR African American 69 mL/min; GFR Non-African American 57 mL/min; Glucose 236 mg/dL (74-106); INR 1.18 (0.9-1.15); Magnesium 1.7 mg/dL (1.6-2.6); Partial Thromboplastin Time 28.8 sec (23.0-31.2); Potassium 3.7 mmol/L (3.5-5.1); Sodium 138 mmol/L (136-145)
[2020-11-28 03:07] LABS: Alkaline Phosphatase 87 U/L (45-117); Bilirubin, Total 0.5 mg/dL (0.2-1.0)
[2020-11-28 03:40] LABS: Basophils # (auto) 0.1 10 ^3/uL (0-0.2); Basophils % (auto) 0.9 % (0.0-2.0); Eosinophils # (auto) 0.1 10 ^3/uL (0-0.8); Eosinophils % (auto) 1.1 % (0.0-7.0); Hematocrit 31.7 % (36.0-46.0); Hemoglobin 10.6 g/dL (12.2-16.2); Lymphocytes # (auto) 2.2 10 ^3/uL (0.4-5.4); Lymphocytes % (auto) 31.9 % (10.0-50.0); Mean Corpuscular Hemoglobin 28.6 pg (28.0-32.0); Mean Corpuscular Hgb Conc. 33.4 g/dL (32.0-36.0); Mean Corpuscular Volume 85.8 fL (80.0-100.0); Monocytes # (auto) 0.9 10 ^3/uL (0-1.3); Monocytes % (auto) 13.3 % (0.0-12.0); Neutrophils # (auto) 3.6 10 ^3/uL (1.6-8.6); Neutrophils % (auto) 52.8 % (37.0-80.0); Nucleated Red Blood Cells % 0.1 %; Platelet Count (auto) 338 10^3/uL (140-450); Red Blood Cells 3.69 10^6/uL (4.0-5.20); Red Cell Distribution Width 14.8 % (11.8-14.3); White Blood Cell 6.8 10^3/uL (4.4-10.8)
[2020-11-28] MEDS: METOPROLOL TARTRATE 1MG/1ML-5ML VIAL IV SCH ×3 (03:50→05:15)
[2020-11-28 04:36] LABS: Urine Bacteria FEW /hpf (None Seen); Urine Blood 1+ /uL (Negative); Urine Specific Gravity 1.014 (1.001-1.035); Urine WBC 2 /hpf (0 - 5)
[2020-11-28] MEDS ORDERED: traMADol HCL 50 MG TAB PO ONE (04:45)
[2020-11-28] MEDS ORDERED: DEXTROSE (50%) 50ML SYRG IV PRN (06:00)
[2020-11-28] MEDS ORDERED: MORPHINE SULF INJ 2 MG/ML SYRINGE 1ML IV PRN (06:00)
[2020-11-28] MEDS ORDERED: DOCUSATE SOD 100 MG CAP PO PRN (06:00)
[2020-11-28] MEDS ORDERED: NITROGLYCERIN 0.4 MG SL TAB SL PRN (06:00)
[2020-11-28] MEDS ORDERED: ONDANSETRON HCL 4 MG/2 ML VIAL IV PRN (06:00)
[2020-11-28] MEDS ORDERED: ACETAMINOPHEN 325 MG TAB PO PRN (06:00)
[2020-11-28] MEDS ORDERED: hydrALAZINE HCL 20 MG/ML VL IV PRN (06:00)
[2020-11-28 06:58] LABS: Basophils # (auto) 0.1 10 ^3/uL (0-0.2); Basophils % (auto) 1.9 % (0.0-2.0); Eosinophils # (auto) 0.1 10 ^3/uL (0-0.8); Hematocrit 26.8 % (36.0-46.0); Hemoglobin 9.4 g/dL (12.2-16.2); Lymphocytes # (auto) 2.4 10 ^3/uL (0.4-5.4); Lymphocytes % (auto) 36.8 % (10.0-50.0); Mean Corpuscular Hemoglobin 29.6 pg (28.0-32.0); Mean Corpuscular Hgb Conc. 35.2 g/dL (32.0-36.0); Mean Corpuscular Volume 84.1 fL (80.0-100.0); Monocytes # (auto) 0.8 10 ^3/uL (0-1.3); Monocytes % (auto) 12.5 % (0.0-12.0); Neutrophils # (auto) 3.1 10 ^3/uL (1.6-8.6); Neutrophils % (auto) 47.8 % (37.0-80.0); Nucleated Red Blood Cells % 0.1 %; Platelet Count (auto) 298 10^3/uL (140-450); Red Blood Cells 3.19 10^6/uL (4.0-5.20); Red Cell Distribution Width 14.8 % (11.8-14.3); White Blood Cell 6.6 10^3/uL (4.4-10.8)
[2020-11-28] MEDS: InsuLIN REG 1unit/0.01ml Soln (100units/ml) SC SCH ×3 (07:00→17:31)
[2020-11-28] MEDS: ACCU-CHEK COMFORT CURVE STRIP VI SCH ×4 (07:00→22:19)
[2020-11-28 07:16] LABS: Potassium 3.4 mmol/L (3.5-5.1)
[2020-11-28 07:26] LABS: Albumin 2.8 g/dL (3.4-5.0); BUN/Creatinine Ratio 18.2; Bilirubin, Total 0.6 mg/dL (0.2-1.0); Calcium 8.4 mg/dL (8.5-10.1); Total Protein 6.1 g/dL (6.4-8.2)
[2020-11-28 08:48] VITALS: BP 120/70
[2020-11-28] MEDS: SODIUM CHLORIDE 0.9% 1,000 ML IV SCH ×2 (08:52→21:45)
[2020-11-28] MEDS: MULTIPLE VITAMIN TAB PO SCH (10:13)
[2020-11-28] MEDS: ZINC SULFATE 220mg CAP or TAB PO SCH (10:13)
[2020-11-28] MEDS: ASCORBIC ACID 500 MG TAB PO SCH ×2 (10:13→21:44)
[2020-11-28] MEDS: FAMOTIDINE 20 MG TAB PO SCH ×2 (10:13→21:44)
[2020-11-28] MEDS: ENOXAPARIN SOD 40 MG/0.4 ML SYRINGE SC SCH (10:13)
[2020-11-28] MEDS: HYDROcodone-ACET 5/325MG TAB PO PRN (10:14)
[2020-11-28 13:00] VITALS: BP 122/54
[2020-11-28 17:13] VITALS: BP 97/50
[2020-11-28] MEDS ORDERED: ZOLPIDEM TARTRATE 5 MG TAB PO PRN (21:30)
[2020-11-28 21:52] VITALS: BP 129/68
[2020-11-28] MEDS ORDERED: InsuLIN REG 1unit/0.01ml Soln (100units/ml) SC SCH (22:00)
[2020-11-28] MEDS ORDERED: traZODone HCL 50 MG TAB PO SCH (22:15)
[2020-11-29 04:40] VITALS: BP 126/68
[2020-11-29 05:55] LABS: Basophils # (auto) 0.1 10 ^3/uL (0-0.2); Basophils % (auto) 1.5 % (0.0-2.0); Eosinophils # (auto) 0.1 10 ^3/uL (0-0.8); Eosinophils % (auto) 1.6 % (0.0-7.0); Hematocrit 28.2 % (36.0-46.0); Hemoglobin 9.6 g/dL (12.2-16.2); Lymphocytes # (auto) 2.2 10 ^3/uL (0.4-5.4); Lymphocytes % (auto) 33.5 % (10.0-50.0); Mean Corpuscular Hemoglobin 28.9 pg (28.0-32.0); Mean Corpuscular Volume 84.9 fL (80.0-100.0); Monocytes # (auto) 0.7 10 ^3/uL (0-1.3); Monocytes % (auto) 10.2 % (0.0-12.0); Neutrophils # (auto) 3.5 10 ^3/uL (1.6-8.6); Neutrophils % (auto) 53.2 % (37.0-80.0); Platelet Count (auto) 309 10^3/uL (140-450); Red Blood Cells 3.32 10^6/uL (4.0-5.20); Red Cell Distribution Width 14.7 % (11.8-14.3); White Blood Cell 6.7 10^3/uL (4.4-10.8)
[2020-11-29 06:12] LABS: Albumin 2.8 g/dL (3.4-5.0); Calcium 8.6 mg/dL (8.5-10.1); Potassium 3.8 mmol/L (3.5-5.1)
[2020-11-29 06:15] LABS: BUN/Creatinine Ratio 18.3
[2020-11-29 06:18] LABS: Bilirubin, Total 0.5 mg/dL (0.2-1.0); Total Protein 6.2 g/dL (6.4-8.2)
[2020-11-29] MEDS: ACCU-CHEK COMFORT CURVE STRIP VI SCH ×2 (07:24→11:16)
[2020-11-29] MEDS: InsuLIN REG 1unit/0.01ml Soln (100units/ml) SC SCH ×2 (07:25→11:17)
[2020-11-29 08:15] VITALS: BP 125/69
[2020-11-29 09:00] VITALS: BP 125/69
[2020-11-29] MEDS: ZINC SULFATE 220mg CAP or TAB PO SCH (09:59)
[2020-11-29] MEDS: MULTIPLE VITAMIN TAB PO SCH (09:59)
[2020-11-29] MEDS: FAMOTIDINE 20 MG TAB PO SCH (10:00)
[2020-11-29] MEDS: ENOXAPARIN SOD 40 MG/0.4 ML SYRINGE SC SCH (10:00)
[2020-11-29] MEDS: ASCORBIC ACID 500 MG TAB PO SCH (10:00)
[2020-11-29] MEDS: HYDROcodone-ACET 5/325MG TAB PO PRN (11:17)
[2020-11-29 12:43] VITALS: BP 130/70
[2020-11-29] MEDS: SODIUM CHLORIDE 0.9% 1,000 ML IV SCH (15:20)
[2020-11-29] MEDS ORDERED: traZODone HCL 50 MG TAB PO SCH (22:00)
== END 2020-11-29 14:20 | disposition left against medical advice (07) | DRG 384 ==
LOC: EDBD 01:31 → ER 01:31 → TELE 05:54 → TELE-WESTW 08:34
PROVIDERS: ADMIT Nurse Practitioner Family; ATTEND Internal Medicine
DX: S00.93XA Contusion of unspecified part of head, initial encounter (principal); E11.22 Type 2 diabetes mellitus with diabetic chronic kidney disease; I13.0 Hypertensive heart and chronic kidney disease with heart failure and stage 1 through stage 4 chronic kidney disease, or unspecified chronic kidney disease; I50.9 Heart failure, unspecified; S13.9XXA Sprain of joints and ligaments of unspecified parts of neck, initial encounter; Z20.822 Contact with and (suspected) exposure to COVID-19; E78.5 Hyperlipidemia, unspecified; W06.XXXA Fall from bed, initial encounter; E88.09 Other disorders of plasma-protein metabolism, not elsewhere classified; E11.65 Type 2 diabetes mellitus with hyperglycemia; Z53.29 Procedure and treatment not carried out because of patient's decision for other reasons; I25.10 Atherosclerotic heart disease of native coronary artery without angina pectoris; F32.9 Major depressive disorder, single episode, unspecified; N18.9 Chronic kidney disease, unspecified; F41.9 Anxiety disorder, unspecified; Z88.0 Allergy status to penicillin; Z88.8 Allergy status to other drugs, medicaments and biological substances; Z90.710 Acquired absence of both cervix and uterus; Z87.440 Personal history of urinary (tract) infections; Y93.89 Activity, other specified; Y92.098 Other place in other non-institutional residence as the place of occurrence of the external cause; Y99.8 Other external cause status; Z83.3 Family history of diabetes mellitus; Z82.49 Family history of ischemic heart disease and other diseases of the circulatory system; Z79.899 Other long term (current) drug therapy
CPT/HCPCS: 36415; 70450; 71045; 72125; 80053; 81001; 83036; 83735; 84484; 85025; 85049; 85610; 85730; 87081; 87426; 93005; G0378; J1815; J2405

== ENCOUNTER 2021-04-26 15:10 | Inpatient (IN) | payer MEDICAID ==
[~2021-04-26] VITALS: Ht 177.8 cm; Wt 89.9 kg
[~2021-04-26 15:10] MED LIST changes: -AMIT10TA6 PO; +AMIT1TAB34 PO
[2021-04-26 15:56] LABS: Basophils # (auto) 0 10 ^3/uL (0-0.2); Basophils % (auto) 0.3 % (0.0-2.0); Eosinophils # (auto) 0.1 10 ^3/uL (0-0.8); Eosinophils % (auto) 1.4 % (0.0-7.0); Hematocrit 32.3 % (36.0-46.0); Hemoglobin 10.5 g/dL (12.2-16.2); Lymphocytes # (auto) 0.8 10 ^3/uL (0.4-5.4); Lymphocytes % (auto) 9.3 % (10.0-50.0); Mean Corpuscular Hgb Conc. 32.4 g/dL (32.0-36.0); Mean Corpuscular Volume 92.8 fL (80.0-100.0); Neutrophils # (auto) 6.8 10 ^3/uL (1.6-8.6); Red Blood Cells 3.48 10^6/uL (4.0-5.20); Red Cell Distribution Width 13.7 % (11.8-14.3); White Blood Cell 8.7 10^3/uL (4.4-10.8)
[2021-04-26 16:21] LABS: Albumin 3.2 g/dL (3.4-5.0); BUN/Creatinine Ratio 12.4; Bilirubin, Total 0.8 mg/dL (0.2-1.0); Calcium 8.3 mg/dL (8.5-10.1); Total Protein 7.4 g/dL (6.4-8.2)
[2021-04-26] MEDS ORDERED: CALCIUM GLUC 1,000mg/50ml-NS 50 ML IV ONE (16:45)
[2021-04-26] MEDS ORDERED: DEXTROSE (50%) 50ML SYRG IV ONE (16:45)
[2021-04-26] MEDS ORDERED: SODIUM BICARBONATE 8.4 % INJ 50ML VIAL IV ONE (16:45)
[2021-04-26] MEDS ORDERED: InsuLIN REG 1unit/0.01ml Soln (100units/ml) IV ONE (16:45)
[2021-04-26] MEDS ORDERED: ONDANSETRON HCL 4 MG/2 ML VIAL IV ONE (18:45)
[2021-04-26] MEDS ORDERED: MORPHINE SULFATE 4 MG/ML SYR/VIAL IV ONE (18:45)
[2021-04-26] MEDS ORDERED: MORPHINE SULFATE INJECTION 2 MG/ML SYRG IV PRN (19:30)
[2021-04-26] MEDS ORDERED: ACETAMINOPHEN 325 MG TAB PO PRN (19:30)
[2021-04-26] MEDS ORDERED: DOCUSATE SOD 100 MG CAP PO PRN (19:30)
[2021-04-26] MEDS ORDERED: SODIUM CHLORIDE 0.9% 1,000 ML IV ONE (19:30)
[2021-04-26] MEDS ORDERED: NITROGLYCERIN 0.4 MG SL TAB SL PRN (19:30)
[2021-04-26] MEDS ORDERED: SODIUM ZIRCONIUM CYCL 10 GM PAK PO STA (19:39)
[2021-04-26] MEDS ORDERED: ALBUTEROL SULF 2.5 MG/0.5ML(0.5%) NEB SOLN NEB ONE (19:45)
[2021-04-26 20:15] LABS: Calcium 8.3 mg/dL (8.5-10.1)
[2021-04-26 20:17] LABS: BUN/Creatinine Ratio 12.8
[2021-04-26 20:34] LABS: Potassium 6.8 mmol/L (3.5-5.1)
[2021-04-26] MEDS: HYDROcodone-ACET 5/325MG TAB PO PRN (22:05)
[2021-04-26] MEDS: TEMAZEPAM 15 MG CAP PO PRN (22:05)
[2021-04-26] MEDS: MORPHINE SULFATE INJECTION 2 MG/ML SYRG IV PRN (22:05)
[2021-04-26] MEDS: ONDANSETRON HCL 4 MG/2 ML VIAL IV PRN (22:05)
[2021-04-26 22:52] LABS: Urine Bacteria NONE SEEN /hpf (None Seen); Urine Blood Negative /uL (Negative); Urine Specific Gravity 1.013 (1.001-1.035); Urine WBC 2 /hpf (0 - 5)
[2021-04-27] MEDS: SODIUM CHLORIDE 0.9% 1,000 ML IV ONE ×2 (01:02→01:37)
[2021-04-27] MEDS: ONDANSETRON HCL 4 MG/2 ML VIAL IV PRN (04:43)
[2021-04-27] MEDS ORDERED: SODIUM CHLORIDE 0.9% 500 ML IV ONE (08:00)
[2021-04-27 08:36] LABS: Hematocrit 29.9 % (36.0-46.0); Hemoglobin 9.5 g/dL (12.2-16.2); Mean Corpuscular Hemoglobin 30.4 pg (28.0-32.0); Mean Corpuscular Hgb Conc. 31.7 g/dL (32.0-36.0); Mean Corpuscular Volume 95.9 fL (80.0-100.0); Red Blood Cells 3.11 10^6/uL (4.0-5.20); Red Cell Distribution Width 14.2 % (11.8-14.3); White Blood Cell 7.3 10^3/uL (4.4-10.8)
[2021-04-27 08:41] LABS: Basophils % (manual) 0 (0.0-2.0); Blast Cells 0; Eosinophils % (manual) 0 (0-7); Metamyelocytes % 0; Myelocytes % 0; Promyelocytes % 0; Reactive Lymphocytes 0
[2021-04-27 08:58] LABS: Albumin 2.9 g/dL (3.4-5.0); Calcium 7.9 mg/dL (8.5-10.1)
[2021-04-27 08:59] LABS: Band Neutrophils % (manual) 1; Lymphocytes % (manual) 20 (10.0-50.0); Monocytes % (manual) 6 (0-12)
[2021-04-27 09:02] LABS: BUN/Creatinine Ratio 12.7; Bilirubin, Total 0.7 mg/dL (0.2-1.0); Total Protein 6.2 g/dL (6.4-8.2)
[2021-04-27 09:47] LABS: Potassium 7.6 mmol/L (3.5-5.1)
[2021-04-27] MEDS ORDERED: CALCIUM GLUC 1,000mg/50ml-NS 50 ML IV ONE (10:00)
[2021-04-27] MEDS ORDERED: SODIUM ZIRCONIUM CYCL 10 GM PAK PO ONE (10:00)
[2021-04-27] MEDS ORDERED: InsuLIN REG 1unit/0.01ml Soln (100units/ml) IV ONE (10:00)
[2021-04-27] MEDS ORDERED: DEXTROSE (50%) 50ML SYRG IV ONE (10:00)
[2021-04-27] MEDS ORDERED: SODIUM BICARBONATE 8.4% INJ 50ML SYRINGE IV ONE (10:00)
[2021-04-27] MEDS: MORPHINE SULFATE INJECTION 2 MG/ML SYRG IV PRN (10:13)
[2021-04-27] MEDS ORDERED: HEPARIN 1,000 UNITS/ml 1ML VIAL ONE ×2 (12:32→12:35)
[2021-04-27] MEDS ORDERED: HEPARIN SODIUM (PORCINE) 5000 UNITS/ML 1ML VIAL ONE (12:33)
[2021-04-27 13:51] LABS: INR 1.1 (0.9-1.15); Partial Thromboplastin Time 29.5 sec (23.6-33.0)
[2021-04-27] MEDS ORDERED: SODIUM CHL 0.9% 1000 ML BAG XX ONE (15:15)
[2021-04-27] MEDS: HYDROcodone-ACET 5/325MG TAB PO PRN (20:07)
[2021-04-27] MEDS: TEMAZEPAM 15 MG CAP PO PRN (22:53)
[2021-04-28] MEDS: MORPHINE SULFATE INJECTION 2 MG/ML SYRG IV PRN ×2 (01:03→08:49)
[2021-04-28] MEDS: ONDANSETRON HCL 4 MG/2 ML VIAL IV PRN (08:58)
[2021-04-28] MEDS: ASPirin-EC 81 mg tab PO SCH (10:16)
[2021-04-28] MEDS ORDERED: DEXTROSE (50%) 50ML SYRG IV PRN (15:45)
[2021-04-28 15:58] LABS: Basophils # (auto) 0 10 ^3/uL (0-0.2); Eosinophils # (auto) 0.2 10 ^3/uL (0-0.8); Hematocrit 25.2 % (36.0-46.0); Lymphocytes # (auto) 0.8 10 ^3/uL (0.4-5.4); Monocytes # (auto) 0.9 10 ^3/uL (0-1.3); White Blood Cell 6.7 10^3/uL (4.4-10.8)
[2021-04-28 16:00] LABS: Basophils % (auto) 0.4 % (0.0-2.0); Eosinophils % (auto) 3.1 % (0.0-7.0); Hemoglobin 8.4 g/dL (12.2-16.2); Lymphocytes % (auto) 11.9 % (10.0-50.0); Mean Corpuscular Hemoglobin 30.3 pg (28.0-32.0); Mean Corpuscular Hgb Conc. 33.2 g/dL (32.0-36.0); Mean Corpuscular Volume 91.3 fL (80.0-100.0); Monocytes % (auto) 14.1 % (0.0-12.0); Neutrophils # (auto) 4.7 10 ^3/uL (1.6-8.6); Neutrophils % (auto) 70.5 % (37.0-80.0); Red Blood Cells 2.76 10^6/uL (4.0-5.20); Red Cell Distribution Width 13.5 % (11.8-14.3)
[2021-04-28] MEDS: HYDROcodone-ACET 5/325MG TAB PO PRN ×2 (16:11→21:44)
[2021-04-28 16:36] LABS: Albumin 2.5 g/dL (3.4-5.0); BUN/Creatinine Ratio 9.4; Bilirubin, Total 0.5 mg/dL (0.2-1.0); Calcium 7.3 mg/dL (8.5-10.1); Total Protein 5.8 g/dL (6.4-8.2)
[2021-04-28 16:58] LABS: Potassium 5.7 mmol/L (3.5-5.1)
[2021-04-28] MEDS: ACCU-CHEK COMFORT CURVE STRIP VI SCH ×2 (17:05→21:26)
[2021-04-28] MEDS: InsuLIN REG 1unit/0.01ml Soln (100units/ml) SC SCH ×2 (17:05→21:26)
[2021-04-28] MEDS ORDERED: SODIUM ZIRCONIUM CYCL 10 GM PAK PO ONE (17:15)
[2021-04-28] MEDS: TEMAZEPAM 15 MG CAP PO PRN (21:44)
[2021-04-28 22:00] VITALS: BP 151/94
[2021-04-29] MEDS: ONDANSETRON HCL 4 MG/2 ML VIAL IV PRN ×6 (02:25→20:18)
[2021-04-29 05:00] VITALS: BP 158/97
[2021-04-29] MEDS: MORPHINE SULFATE INJECTION 2 MG/ML SYRG IV PRN (05:32)
[2021-04-29] MEDS: ACCU-CHEK COMFORT CURVE STRIP VI SCH ×4 (06:30→22:21)
[2021-04-29] MEDS: InsuLIN REG 1unit/0.01ml Soln (100units/ml) SC SCH ×4 (06:33→22:22)
[2021-04-29 07:13] LABS: Basophils # (auto) 0.1 10 ^3/uL (0-0.2); Basophils % (auto) 0.8 % (0.0-2.0); Eosinophils # (auto) 0.3 10 ^3/uL (0-0.8); Eosinophils % (auto) 3.9 % (0.0-7.0); Hematocrit 27.1 % (36.0-46.0); Lymphocytes # (auto) 0.9 10 ^3/uL (0.4-5.4); Lymphocytes % (auto) 11.8 % (10.0-50.0); Mean Corpuscular Hemoglobin 30.4 pg (28.0-32.0); Mean Corpuscular Hgb Conc. 33.2 g/dL (32.0-36.0); Mean Corpuscular Volume 91.3 fL (80.0-100.0); Monocytes # (auto) 0.8 10 ^3/uL (0-1.3); Monocytes % (auto) 10.7 % (0.0-12.0); Neutrophils # (auto) 5.6 10 ^3/uL (1.6-8.6); Neutrophils % (auto) 72.8 % (37.0-80.0); Red Blood Cells 2.97 10^6/uL (4.0-5.20); Red Cell Distribution Width 13.5 % (11.8-14.3); White Blood Cell 7.7 10^3/uL (4.4-10.8)
[2021-04-29 07:29] LABS: Potassium 4.8 mmol/L (3.5-5.1)
[2021-04-29 07:36] LABS: Albumin 2.6 g/dL (3.4-5.0); BUN/Creatinine Ratio 10.6; Bilirubin, Total 0.5 mg/dL (0.2-1.0); Calcium 7.8 mg/dL (8.5-10.1)
[2021-04-29 09:00] VITALS: BP 164/84
[2021-04-29] MEDS: ASPirin-EC 81 mg tab PO SCH (09:20)
[2021-04-29] MEDS: AMITRIPTYLINE HCL 10 MG TAB PO SCH (09:21)
[2021-04-29] MEDS: amLODIPine BESYLATE 5 MG TAB PO SCH (09:21)
[2021-04-29 10:30] VITALS: BP 140/61
[2021-04-29] MEDS ORDERED: hydrALAZINE HCL 20 MG/ML VL IV SCH (12:00)
[2021-04-29 13:00] VITALS: BP_SYST 118; BP_SYST 148; BP_DIAS 66; BP_DIAS 88
[2021-04-29] MEDS ORDERED: hydrALAZINE HCL 20 MG/ML VL IV PRN (14:15)
[2021-04-29] MEDS: SOD CHL 0.45% 1,000 ML IV SCH (16:15)
[2021-04-29] MEDS ORDERED: diphenhdrAMINE HCL 50 MG/1 ML VL IM ONE (16:15)
[2021-04-29 16:51] VITALS: BP 130/64
[2021-04-29 17:22] LABS: Urine Bacteria FEW /hpf (None Seen); Urine Blood TRACE /uL (Negative); Urine Specific Gravity 1.013 (1.001-1.035); Urine WBC 12 /hpf (0 - 5)
[2021-04-29] MEDS: LORazepam 0.5 MG TAB PO PRN (20:18)
[2021-04-29] MEDS: TEMAZEPAM 15 MG CAP PO PRN (22:21)
[2021-04-29] MEDS ORDERED: BISMUTH SUBSALICYLATE 262MG/15ml ORAL Susp PO PRN (23:00)
[2021-04-30] MEDS: SOD CHL 0.45% 1,000 ML IV SCH ×2 (02:53→20:30)
[2021-04-30] MEDS: ONDANSETRON HCL 4 MG/2 ML VIAL IV PRN ×4 (05:41→21:33)
[2021-04-30] MEDS: LORazepam 0.5 MG TAB PO PRN (05:41)
[2021-04-30 06:46] LABS: Basophils # (auto) 0.1 10 ^3/uL (0-0.2); Basophils % (auto) 0.8 % (0.0-2.0); Eosinophils # (auto) 0.1 10 ^3/uL (0-0.8); Eosinophils % (auto) 1.7 % (0.0-7.0); Hemoglobin 10.1 g/dL (12.2-16.2); Lymphocytes # (auto) 1.5 10 ^3/uL (0.4-5.4); Lymphocytes % (auto) 20.4 % (10.0-50.0); Mean Corpuscular Hemoglobin 30.2 pg (28.0-32.0); Mean Corpuscular Hgb Conc. 33.8 g/dL (32.0-36.0); Mean Corpuscular Volume 89.5 fL (80.0-100.0); Monocytes # (auto) 0.8 10 ^3/uL (0-1.3); Neutrophils # (auto) 5.1 10 ^3/uL (1.6-8.6); Neutrophils % (auto) 67.1 % (37.0-80.0); Nucleated Red Blood Cells % 0.1 %; Red Blood Cells 3.35 10^6/uL (4.0-5.20); White Blood Cell 7.6 10^3/uL (4.4-10.8)
[2021-04-30] MEDS: InsuLIN REG 1unit/0.01ml Soln (100units/ml) SC SCH ×4 (06:50→21:29)
[2021-04-30] MEDS: ACCU-CHEK COMFORT CURVE STRIP VI SCH ×4 (06:51→21:31)
[2021-04-30 07:11] LABS: Albumin 2.7 g/dL (3.4-5.0); Calcium 8.4 mg/dL (8.5-10.1); Potassium 3.8 mmol/L (3.5-5.1)
[2021-04-30 07:19] LABS: BUN/Creatinine Ratio 11.8; Bilirubin, Total 0.4 mg/dL (0.2-1.0); Total Protein 6.1 g/dL (6.4-8.2)
[2021-04-30 08:32] VITALS: BP 149/91
[2021-04-30] MEDS: ASPirin-EC 81 mg tab PO SCH (09:11)
[2021-04-30] MEDS: AMITRIPTYLINE HCL 10 MG TAB PO SCH (09:11)
[2021-04-30] MEDS: METOCLOPRAMIDE HCL 10 MG TAB PO SCH ×2 (09:11→16:38)
[2021-04-30] MEDS: amLODIPine BESYLATE 5 MG TAB PO SCH (09:12)
[2021-04-30 13:00] VITALS: BP 148/60
[2021-04-30] MEDS: CIPROFLOXACIN HYDROCHLORIDE 250 MG TAB PO SCH (13:54)
[2021-04-30] MEDS ORDERED: SOD CHL 0.45% 1,000 ML IV SCH (14:00)
[2021-04-30] MEDS ORDERED: BUSP15TA60 PO (14:17)
[2021-04-30] MEDS ORDERED: ATO40T PO (14:20)
[2021-04-30] MEDS ORDERED: HYDR50CA2 PO (14:20)
[2021-04-30 17:00] VITALS: BP 118/57
[2021-04-30] MEDS ORDERED: MIRTAZAPINE 30 MG TAB PO SCH (18:00)
[2021-04-30] MEDS: MIRTAZAPINE 45 MG PO SCH (21:31)
[2021-04-30 22:00] VITALS: BP 123/58
[2021-04-30] MEDS: TEMAZEPAM 15 MG CAP PO PRN (22:41)
[2021-05-01] MEDS: METOCLOPRAMIDE HCL 10 MG TAB PO SCH ×3 (01:00→16:27)
[2021-05-01] MEDS: SOD CHL 0.45% 1,000 ML IV SCH ×7 (01:17→21:39)
[2021-05-01 05:00] VITALS: BP 132/75
[2021-05-01] MEDS: InsuLIN REG 1unit/0.01ml Soln (100units/ml) SC SCH ×4 (05:56→22:56)
[2021-05-01] MEDS: ACCU-CHEK COMFORT CURVE STRIP VI SCH ×4 (05:58→22:00)
[2021-05-01 05:59] LABS: Basophils # (auto) 0.1 10 ^3/uL (0-0.2); Basophils % (auto) 1.4 % (0.0-2.0); Eosinophils # (auto) 0.6 10 ^3/uL (0-0.8); Hematocrit 29.4 % (36.0-46.0); Hemoglobin 10.1 g/dL (12.2-16.2); Lymphocytes # (auto) 2.6 10 ^3/uL (0.4-5.4); Lymphocytes % (auto) 36.1 % (10.0-50.0); Mean Corpuscular Hemoglobin 30.8 pg (28.0-32.0); Mean Corpuscular Hgb Conc. 34.3 g/dL (32.0-36.0); Mean Corpuscular Volume 89.6 fL (80.0-100.0); Monocytes # (auto) 0.8 10 ^3/uL (0-1.3); Monocytes % (auto) 11.5 % (0.0-12.0); Neutrophils # (auto) 3.1 10 ^3/uL (1.6-8.6); Red Blood Cells 3.28 10^6/uL (4.0-5.20); White Blood Cell 7.2 10^3/uL (4.4-10.8)
[2021-05-01 06:25] LABS: Albumin 2.5 g/dL (3.4-5.0); BUN/Creatinine Ratio 15.9; Calcium 8.3 mg/dL (8.5-10.1)
[2021-05-01 06:52] LABS: Bilirubin, Total 0.3 mg/dL (0.2-1.0); Total Protein 5.7 g/dL (6.4-8.2)
[2021-05-01 08:52] VITALS: BP 176/82
[2021-05-01] MEDS: ASPirin-EC 81 mg tab PO SCH (08:54)
[2021-05-01] MEDS: CIPROFLOXACIN HYDROCHLORIDE 250 MG TAB PO SCH (08:54)
[2021-05-01] MEDS: AMITRIPTYLINE HCL 10 MG TAB PO SCH (08:54)
[2021-05-01] MEDS: amLODIPine BESYLATE 5 MG TAB PO SCH (08:55)
[2021-05-01] MEDS: ONDANSETRON HCL 4 MG/2 ML VIAL IV PRN (10:59)
[2021-05-01 13:00] VITALS: BP 139/64
[2021-05-01] MEDS: LORazepam 0.5 MG TAB PO PRN ×2 (13:56→21:49)
[2021-05-01] MEDS: MORPHINE SULFATE INJECTION 2 MG/ML SYRG IV PRN (16:14)
[2021-05-01] MEDS: MEROPENEM 1GM IVPB 100 ML IV SCH ×2 (16:14→21:49)
[2021-05-01] MEDS: HYDROcodone-ACET 5/325MG TAB PO PRN (16:26)
[2021-05-01 16:51] VITALS: BP 125/71
[2021-05-01 21:30] VITALS: BP 131/63
[2021-05-01] MEDS: MIRTAZAPINE 45 MG PO SCH (21:49)
[2021-05-01] MEDS: TEMAZEPAM 15 MG CAP PO PRN (22:57)
[2021-05-02] MEDS: METOCLOPRAMIDE HCL 10 MG TAB PO SCH ×2 (01:00→08:20)
[2021-05-02] MEDS: HYDROcodone-ACET 5/325MG TAB PO PRN ×2 (02:29→06:00)
[2021-05-02 05:00] VITALS: BP 132/65
[2021-05-02] MEDS: InsuLIN REG 1unit/0.01ml Soln (100units/ml) SC SCH ×2 (06:35→12:19)
[2021-05-02] MEDS: MEROPENEM 1GM IVPB 100 ML IV SCH (08:20)
[2021-05-02] MEDS: amLODIPine BESYLATE 5 MG TAB PO SCH (08:57)
[2021-05-02] MEDS: ASPirin-EC 81 mg tab PO SCH (08:57)
[2021-05-02] MEDS: AMITRIPTYLINE HCL 10 MG TAB PO SCH (08:57)
[2021-05-02 09:00] VITALS: BP 150/79
[2021-05-02 11:51] LABS: Basophils # (auto) 0.1 10 ^3/uL (0-0.2); Basophils % (auto) 1.4 % (0.0-2.0); Eosinophils # (auto) 0.3 10 ^3/uL (0-0.8); Eosinophils % (auto) 5.5 % (0.0-7.0); Hematocrit 32.1 % (36.0-46.0); Hemoglobin 10.7 g/dL (12.2-16.2); Lymphocytes # (auto) 1.3 10 ^3/uL (0.4-5.4); Mean Corpuscular Hemoglobin 30.2 pg (28.0-32.0); Mean Corpuscular Hgb Conc. 33.3 g/dL (32.0-36.0); Mean Corpuscular Volume 90.8 fL (80.0-100.0); Monocytes # (auto) 0.6 10 ^3/uL (0-1.3); Monocytes % (auto) 10.8 % (0.0-12.0); Neutrophils # (auto) 3.7 10 ^3/uL (1.6-8.6); Neutrophils % (auto) 61.3 % (37.0-80.0); Red Blood Cells 3.54 10^6/uL (4.0-5.20)
[2021-05-02 12:12] LABS: Albumin 2.8 g/dL (3.4-5.0); Calcium 8.2 mg/dL (8.5-10.1); Potassium 4.4 mmol/L (3.5-5.1)
[2021-05-02] MEDS: ACCU-CHEK COMFORT CURVE STRIP VI SCH (12:13)
[2021-05-02 12:17] LABS: BUN/Creatinine Ratio 16.3; Bilirubin, Total 0.3 mg/dL (0.2-1.0); Total Protein 6.4 g/dL (6.4-8.2)
[2021-05-02 13:00] VITALS: BP 148/82
[2021-05-03 12:18] LABS: Hepatitis A Ab IgM Negative
[2021-05-03 12:57] LABS: Hepatitis B Core IgM Negative
[2021-05-03 13:19] LABS: Hepatitis C Antibody Negative (Negative)
== END 2021-05-02 13:15 | disposition home or self-care (01) | DRG 470 ==
LOC: ER 15:10 → TELE 19:26 → TELE-CENTR 04-28 18:52
PROVIDERS: ADMIT Internal Medicine; ATTEND Internal Medicine
PROC: 05HB33Z Insertion of Infusion Device into Right Basilic Vein, Percutaneous Approach (ICD-10-PCS; principal; 2021-04-27)
PROC: B54MZZA Ultrasonography of Right Upper Extremity Veins, Guidance (ICD-10-PCS; 2021-04-27)
PROC: 5A1D70Z Performance of Urinary Filtration, Intermittent, Less than 6 Hours Per Day (ICD-10-PCS; 2021-04-27)
PROC: 06HY33Z Insertion of Infusion Device into Lower Vein, Percutaneous Approach (ICD-10-PCS; 2021-04-27)
DX: I12.0 Hypertensive chronic kidney disease with stage 5 chronic kidney disease or end stage renal disease (principal); N17.9 Acute kidney failure, unspecified; I31.3 Pericardial effusion (noninflammatory); I42.9 Cardiomyopathy, unspecified; D63.1 Anemia in chronic kidney disease; N18.6 End stage renal disease; E87.5 Hyperkalemia; E78.5 Hyperlipidemia, unspecified; F31.9 Bipolar disorder, unspecified; F41.9 Anxiety disorder, unspecified; I25.10 Atherosclerotic heart disease of native coronary artery without angina pectoris; I34.0 Nonrheumatic mitral (valve) insufficiency; E11.40 Type 2 diabetes mellitus with diabetic neuropathy, unspecified; Z20.822 Contact with and (suspected) exposure to COVID-19; I25.2 Old myocardial infarction; Z79.02 Long term (current) use of antithrombotics/antiplatelets; Z88.0 Allergy status to penicillin; Z88.8 Allergy status to other drugs, medicaments and biological substances; Z79.82 Long term (current) use of aspirin; Z79.84 Long term (current) use of oral hypoglycemic drugs; Z79.899 Other long term (current) drug therapy; Z80.7 Family history of other malignant neoplasms of lymphoid, hematopoietic and related tissues; Z82.49 Family history of ischemic heart disease and other diseases of the circulatory system; Z83.3 Family history of diabetes mellitus; Z90.710 Acquired absence of both cervix and uterus; Z95.5 Presence of coronary angioplasty implant and graft
CPT/HCPCS: 36415; 51702; 70450; 71046; 80048; 80053; 80074; 81001; 82962; 84132; 84484; 85007; 85025; 85027; 85610; 85730; 87086; 87088; 87186; 87426; 90935; 93005; 93306; 96361; 96374; 96375; 96376; 99291; G0378; J1815; J2185; J2405

== ENCOUNTER 2021-06-09 10:32 | Inpatient (IN) | payer MEDICAID ==
[~2021-06-09] VITALS: Ht 177.8 cm; Wt 86.5 kg
[~2021-06-09 10:32] MED LIST changes: +ATO40T PO; +BUSP15TA60 PO; +HYDR50CA2 PO
[2021-06-09 12:59] LABS: Basophils # (auto) 0.1 10 ^3/uL (0-0.2); Basophils % (auto) 0.9 % (0.0-2.0); Eosinophils # (auto) 0.2 10 ^3/uL (0-0.8); Eosinophils % (auto) 2.3 % (0.0-7.0); Hematocrit 35.9 % (36.0-46.0); Hemoglobin 12.1 g/dL (12.2-16.2); Lymphocytes # (auto) 1.5 10 ^3/uL (0.4-5.4); Lymphocytes % (auto) 17.3 % (10.0-50.0); Mean Corpuscular Hgb Conc. 33.6 g/dL (32.0-36.0); Mean Corpuscular Volume 89.3 fL (80.0-100.0); Monocytes # (auto) 0.7 10 ^3/uL (0-1.3); Monocytes % (auto) 7.9 % (0.0-12.0); Neutrophils # (auto) 6.4 10 ^3/uL (1.6-8.6); Neutrophils % (auto) 71.6 % (37.0-80.0); Nucleated Red Blood Cells % 0.1 %; Red Blood Cells 4.02 10^6/uL (4.0-5.20); Red Cell Distribution Width 13.3 % (11.8-14.3); White Blood Cell 8.9 10^3/uL (4.4-10.8)
[2021-06-09 13:13] LABS: Albumin 4.2 g/dL (3.4-5.0); Calcium 9.5 mg/dL (8.5-10.1)
[2021-06-09 13:16] LABS: INR 1.05 (0.9-1.15); Partial Thromboplastin Time 26.2 sec (23.6-33.0)
[2021-06-09 13:17] LABS: BUN/Creatinine Ratio 22.4; Bilirubin, Total 0.4 mg/dL (0.2-1.0); Total Protein 7.3 g/dL (6.4-8.2)
[2021-06-09 13:29] LABS: Potassium 6.1 mmol/L (3.5-5.1)
[2021-06-09] MEDS ORDERED: MORPHINE SULFATE INJECTION 2 MG/ML SYRG IV ONE (14:30)
[2021-06-09] MEDS ORDERED: DOCUSATE SOD 100 MG CAP PO PRN (15:30)
[2021-06-09] MEDS ORDERED: NITROGLYCERIN 0.4 MG SL TAB SL PRN (15:30)
[2021-06-09] MEDS ORDERED: ACETAMINOPHEN 325 MG TAB PO PRN (15:30)
[2021-06-09] MEDS ORDERED: TEMAZEPAM 15 MG CAP PO PRN (15:30)
[2021-06-09] MEDS ORDERED: ONDANSETRON HCL 4 MG/2 ML VIAL IV PRN (15:30)
[2021-06-09] MEDS ORDERED: MORPHINE SULFATE 4 MG/ML SYR/VIAL IV PRN (15:30)
[2021-06-09] MEDS ORDERED: HYDROcodone-ACET 5/325MG TAB PO PRN (15:30)
[2021-06-09] MEDS ORDERED: ALBUTEROL SULF 2.5 MG/0.5ML(0.5%) NEB SOLN NEB ONE (16:30)
[2021-06-09] MEDS ORDERED: FUROSEMIDE 40 MG/4 ML VIAL IV ONE (16:30)
[2021-06-09] MEDS ORDERED: CALCIUM CHL 100MG/ML 1,000 MG in D5W 5% 100 ML IV ONE (16:30)
[2021-06-09] MEDS ORDERED: DEXTROSE (50%) 50ML SYRG IV PRN (18:15)
[2021-06-09] MEDS ORDERED: MORPHINE SULFATE INJECTION 2 MG/ML SYRG IV PRN (18:15)
[2021-06-09 19:22] VITALS: BP 141/67
[2021-06-09 20:00] VITALS: BP 141/67
[2021-06-09 20:05] LABS: BUN/Creatinine Ratio 20.6; Potassium 4.3 mmol/L (3.5-5.1)
[2021-06-09] MEDS: ASCORBIC ACID 500 MG TAB PO SCH (21:46)
[2021-06-09] MEDS: MORPHINE SULFATE INJECTION 2 MG/ML SYRG IV PRN (21:57)
[2021-06-09 22:00] VITALS: BP 141/67
[2021-06-09] MEDS: ACCU-CHEK COMFORT CURVE STRIP VI SCH (22:13)
[2021-06-09] MEDS: InsuLIN REG 1unit/0.01ml Soln (100units/ml) SC SCH (22:14)
[2021-06-10] MEDS: MORPHINE SULFATE 4 MG/ML SYR/VIAL IV PRN ×7 (00:54→22:37)
[2021-06-10 05:00] VITALS: BP 132/78
[2021-06-10] MEDS: InsuLIN REG 1unit/0.01ml Soln (100units/ml) SC SCH ×4 (06:09→22:05)
[2021-06-10 06:35] LABS: Basophils # (auto) 0.1 10 ^3/uL (0-0.2); Basophils % (auto) 0.8 % (0.0-2.0); Eosinophils # (auto) 0.2 10 ^3/uL (0-0.8); Eosinophils % (auto) 2.8 % (0.0-7.0); Hematocrit 36.4 % (36.0-46.0); Lymphocytes % (auto) 30.9 % (10.0-50.0); Mean Corpuscular Hemoglobin 30.1 pg (28.0-32.0); Mean Corpuscular Hgb Conc. 32.8 g/dL (32.0-36.0); Mean Corpuscular Volume 91.6 fL (80.0-100.0); Monocytes # (auto) 0.7 10 ^3/uL (0-1.3); Neutrophils # (auto) 3.6 10 ^3/uL (1.6-8.6); Neutrophils % (auto) 54.5 % (37.0-80.0); Nucleated Red Blood Cells % 0.1 %; Red Blood Cells 3.98 10^6/uL (4.0-5.20); Red Cell Distribution Width 13.3 % (11.8-14.3); White Blood Cell 6.6 10^3/uL (4.4-10.8)
[2021-06-10] MEDS: ACCU-CHEK COMFORT CURVE STRIP VI SCH ×4 (07:00→22:06)
[2021-06-10 07:03] LABS: Albumin 3.9 g/dL (3.4-5.0); BUN/Creatinine Ratio 22.4; Calcium 9.5 mg/dL (8.5-10.1); Potassium 5.3 mmol/L (3.5-5.1)
[2021-06-10 07:13] LABS: Bilirubin, Total 0.3 mg/dL (0.2-1.0)
[2021-06-10 08:00] VITALS: BP 127/77
[2021-06-10] MEDS: MORPHINE SULFATE INJECTION 2 MG/ML SYRG IV PRN (08:00)
[2021-06-10 09:00] VITALS: BP 124/77
[2021-06-10] MEDS: ASCORBIC ACID 500 MG TAB PO SCH ×2 (09:43→22:02)
[2021-06-10] MEDS ORDERED: ZINC SULFATE 220mg CAP or TAB PO SCH (10:00)
[2021-06-10] MEDS ORDERED: MULTIPLE VITAMIN TAB PO SCH (10:00)
[2021-06-10 13:00] VITALS: BP 131/79
[2021-06-10 17:00] VITALS: BP 134/83
[2021-06-10 21:15] VITALS: BP 114/65
[2021-06-11] MEDS: MORPHINE SULFATE 4 MG/ML SYR/VIAL IV PRN (02:55)
[2021-06-11 06:27] VITALS: BP 128/82
[2021-06-11] MEDS: ACCU-CHEK COMFORT CURVE STRIP VI SCH (07:11)
[2021-06-11] MEDS: InsuLIN REG 1unit/0.01ml Soln (100units/ml) SC SCH (07:13)
[2021-06-11 08:00] VITALS: BP 160/95
[2021-06-11 09:00] VITALS: BP 160/95
== END 2021-06-11 09:32 | disposition home health service (06) | DRG 341 ==
LOC: ER 10:36 → TELE 15:26 → TELE-WESTW 18:23
PROVIDERS: ADMIT Internal Medicine; ATTEND Internal Medicine
DX: S32.512A Fracture of superior rim of left pubis, initial encounter for closed fracture (principal); N17.9 Acute kidney failure, unspecified; E11.21 Type 2 diabetes mellitus with diabetic nephropathy; E11.40 Type 2 diabetes mellitus with diabetic neuropathy, unspecified; N18.4 Chronic kidney disease, stage 4 (severe); E87.5 Hyperkalemia; E11.22 Type 2 diabetes mellitus with diabetic chronic kidney disease; E78.5 Hyperlipidemia, unspecified; I12.9 Hypertensive chronic kidney disease with stage 1 through stage 4 chronic kidney disease, or unspecified chronic kidney disease; I25.10 Atherosclerotic heart disease of native coronary artery without angina pectoris; K21.9 Gastro-esophageal reflux disease without esophagitis; W01.0XXA Fall on same level from slipping, tripping and stumbling without subsequent striking against object, initial encounter; Z20.822 Contact with and (suspected) exposure to COVID-19; Z88.0 Allergy status to penicillin; Z88.8 Allergy status to other drugs, medicaments and biological substances; Z80.7 Family history of other malignant neoplasms of lymphoid, hematopoietic and related tissues; Z83.3 Family history of diabetes mellitus; Z82.49 Family history of ischemic heart disease and other diseases of the circulatory system; Z90.710 Acquired absence of both cervix and uterus; Z87.440 Personal history of urinary (tract) infections; Y93.89 Activity, other specified; Y92.098 Other place in other non-institutional residence as the place of occurrence of the external cause; Y99.8 Other external cause status
CPT/HCPCS: 36415; 71045; 72192; 80048; 80053; 82962; 85025; 85610; 85730; 86850; 86900; 86901; 87426; 93005; 94640; 96365; 96375; 96376; 97163; G0378; J1815; J2405; J7060

== ENCOUNTER 2021-07-11 00:32 | Inpatient (IN) | payer MEDICAID ==
[~2021-07-11] VITALS: Ht 172.7 cm; Wt 81.6 kg
[2021-07-11 02:47] LABS: Basophils # (auto) 0 10 ^3/uL (0-0.2); Basophils % (auto) 0.2 % (0.0-2.0); Eosinophils # (auto) 0 10 ^3/uL (0-0.8); Eosinophils % (auto) 0.3 % (0.0-7.0); Hematocrit 25.9 % (36.0-46.0); Hemoglobin 8.6 g/dL (12.2-16.2); Lymphocytes # (auto) 0.8 10 ^3/uL (0.4-5.4); Lymphocytes % (auto) 11.4 % (10.0-50.0); Mean Corpuscular Hemoglobin 30.3 pg (28.0-32.0); Mean Corpuscular Hgb Conc. 33.4 g/dL (32.0-36.0); Mean Corpuscular Volume 90.8 fL (80.0-100.0); Monocytes # (auto) 0.7 10 ^3/uL (0-1.3); Monocytes % (auto) 10.9 % (0.0-12.0); Neutrophils # (auto) 5.2 10 ^3/uL (1.6-8.6); Neutrophils % (auto) 77.2 % (37.0-80.0); Red Blood Cells 2.85 10^6/uL (4.0-5.20); Red Cell Distribution Width 13.9 % (11.8-14.3); White Blood Cell 6.7 10^3/uL (4.4-10.8)
[2021-07-11] MEDS ORDERED: NALOXONE HCL 0.4 MG/ML VIAL IV ONE (03:00)
[2021-07-11 03:05] LABS: INR 1.11 (0.9-1.15); Partial Thromboplastin Time 25.3 sec (23.6-33.0)
[2021-07-11 03:17] LABS: Lactic Acid w/Reflex 2.5 mmol/L (0.4-2.0)
[2021-07-11 03:31] LABS: Albumin 2.5 g/dL (3.4-5.0); BUN/Creatinine Ratio 12.1; Calcium 6.9 mg/dL (8.5-10.1)
[2021-07-11 03:34] LABS: Bilirubin, Total 0.4 mg/dL (0.2-1.0); Total Protein 5.2 g/dL (6.4-8.2)
[2021-07-11 03:39] LABS: Potassium 6.4 mmol/L (3.5-5.1)
[2021-07-11] MEDS ORDERED: DEXTROSE (25%) 10 ML SYRG IV ONE ×2 (04:00→15:30)
[2021-07-11] MEDS ORDERED: FUROSEMIDE 40 MG/4 ML VIAL IV ONE (04:00)
[2021-07-11] MEDS ORDERED: InsuLIN REG 1unit/0.01ml Soln (100units/ml) IV ONE ×3 (04:00→15:30)
[2021-07-11] MEDS ORDERED: CALCIUM GLUC 1,000mg/50ml-NS 50 ML IV ONE ×4 (04:15→21:15)
[2021-07-11] MEDS ORDERED: SODIUM CHLORIDE 0.9% 1,000 ML IV ONE (04:45)
[2021-07-11 07:12] LABS: Urine Amorphous Crystal FEW /hpf (None Seen); Urine Bacteria MOD /hpf (None Seen); Urine Blood Negative /uL (Negative); Urine Specific Gravity 1.011 (1.001-1.035); Urine WBC 2 /hpf (0 - 5)
[2021-07-11] MEDS ORDERED: hydrALAZINE HCL 20 MG/ML VL IV PRN (07:15)
[2021-07-11] MEDS ORDERED: DEXTROSE (50%) 50ML SYRG IV PRN ×2 (07:15→10:30)
[2021-07-11] MEDS ORDERED: ONDANSETRON HCL 4 MG/2 ML VIAL IV PRN ×2 (07:15→10:30)
[2021-07-11] MEDS ORDERED: SODIUM BICARBONATE 50ML VIAL 150 ML in D5W 5% 1,000 ML IV SCH ×2 (07:15→15:30)
[2021-07-11 08:01] LABS: Basophils # (auto) 0 10 ^3/uL (0-0.2); Eosinophils # (auto) 0 10 ^3/uL (0-0.8); Lymphocytes # (auto) 0.9 10 ^3/uL (0.4-5.4); Monocytes # (auto) 0.8 10 ^3/uL (0-1.3); Neutrophils # (auto) 4.2 10 ^3/uL (1.6-8.6)
[2021-07-11 08:02] LABS: Basophils % (auto) 0.2 % (0.0-2.0); Eosinophils % (auto) 0.2 % (0.0-7.0); Hematocrit 24.6 % (36.0-46.0); Hemoglobin 8.3 g/dL (12.2-16.2); Lymphocytes % (auto) 14.8 % (10.0-50.0); Mean Corpuscular Hemoglobin 30.8 pg (28.0-32.0); Mean Corpuscular Hgb Conc. 33.8 g/dL (32.0-36.0); Mean Corpuscular Volume 90.9 fL (80.0-100.0); Monocytes % (auto) 13.7 % (0.0-12.0); Neutrophils % (auto) 71.1 % (37.0-80.0); Red Cell Distribution Width 13.9 % (11.8-14.3); White Blood Cell 5.9 10^3/uL (4.4-10.8)
[2021-07-11 08:14] LABS: Albumin 3.3 g/dL (3.4-5.0); Calcium 8.8 mg/dL (8.5-10.1)
[2021-07-11 08:17] LABS: BUN/Creatinine Ratio 11.7; Bilirubin, Total 0.4 mg/dL (0.2-1.0); Total Protein 6.4 g/dL (6.4-8.2)
[2021-07-11 08:23] LABS: Potassium 7.4 mmol/L (3.5-5.1)
[2021-07-11] MEDS ORDERED: SODIUM ZIRCONIUM CYCL 10 GM PAK PO ONE (09:00)
[2021-07-11] MEDS ORDERED: ALBUTEROL SULF 2.5 MG/0.5ML(0.5%) NEB SOLN NEB ONE ×2 (09:00→22:45)
[2021-07-11] MEDS ORDERED: DEXTROSE (50%) 50ML SYRG IV ONE (09:00)
[2021-07-11] MEDS ORDERED: ALBUTEROL SULF 2.5 MG/0.5ML(0.5%) NEB SOLN ONE (09:07)
[2021-07-11] MEDS: ALBUTEROL SULF HFA 90MCG INH 200DOSE IN SCH ×2 (09:27→20:40)
[2021-07-11] MEDS ORDERED: FUROSEMIDE 100 MG/10ML VIAL IV ONE (09:30)
[2021-07-11] MEDS ORDERED: GABAPENTIN 300 MG CAP PO SCH (10:00)
[2021-07-11] MEDS ORDERED: PATIENTS OWN MEDICATION (Aspirin 81 MG) PO SCH (10:00)
[2021-07-11] MEDS ORDERED: AMITRIPTYLINE HCL 10 MG TAB PO SCH (10:00)
[2021-07-11] MEDS ORDERED: PANTOPRAZOLE 40 MG/10 ML VIAL INJ IV SCH (10:00)
[2021-07-11] MEDS ORDERED: PATIENTS OWN MEDICATION (Omeprazole (Gnp Omeprazole) 40 MG) PO SCH (10:00)
[2021-07-11] MEDS ORDERED: NITROGLYCERIN 0.4 MG SL TAB SL PRN (10:30)
[2021-07-11] MEDS ORDERED: ACETAMINOPHEN 325 MG TAB PO PRN (10:30)
[2021-07-11] MEDS ORDERED: MORPHINE SULFATE 4 MG/ML SYR/VIAL IV PRN (10:30)
[2021-07-11] MEDS ORDERED: MORPHINE SULFATE INJECTION 2 MG/ML SYRG IV PRN (10:30)
[2021-07-11 10:46] LABS: Amphetamine Screen, Urine NEGATIVE (NEGATIVE); Barbiturate Scree,Urine NEGATIVE (NEGATIVE); Benzodiazephine Screen, Urine NEGATIVE (NEGATIVE); Cannabinoid Screen, Urine NEGATIVE (NEGATIVE); Cocaine Screen, Urine NEGATIVE (NEGATIVE); Opiate Scree,Urine NEGATIVE (NEGATIVE); Phencyclidine Screen, Urine NEGATIVE (NEGATIVE)
[2021-07-11] MEDS: HYDROcodone-ACET 5/325MG TAB PO PRN ×2 (11:15→18:18)
[2021-07-11] MEDS ORDERED: InsuLIN REG 1unit/0.01ml Soln (100units/ml) SC SCH ×2 (11:30→22:00)
[2021-07-11] MEDS ORDERED: ACCU-CHEK COMFORT CURVE STRIP VI SCH (11:30)
[2021-07-11 11:40] VITALS: BP 109/82
[2021-07-11] MEDS: InsuLIN REG 1unit/0.01ml Soln (100units/ml) SC SCH ×2 (11:55→17:00)
[2021-07-11] MEDS: ACCU-CHEK COMFORT CURVE STRIP VI SCH ×3 (12:00→21:38)
[2021-07-11] MEDS ORDERED: OCTREOTIDE ACETATE 100 MCG in SODIUM CHL 0.9% 50 ML IV ONE (12:15)
[2021-07-11] MEDS ORDERED: PANTOPRAZOLE 80 MG in SODIUM CHL 0.9% 100 ML IV ONE (12:15)
[2021-07-11] MEDS: PANTOPRAZOLE 40mg/50ML NS AE 50 ML IV SCH ×3 (12:45→22:48)
[2021-07-11 13:49] LABS: Basophils # (auto) 0 10 ^3/uL (0-0.2); Basophils % (auto) 0.2 % (0.0-2.0); Eosinophils # (auto) 0 10 ^3/uL (0-0.8); Eosinophils % (auto) 0.1 % (0.0-7.0); Hemoglobin 8.5 g/dL (12.2-16.2); Lymphocytes # (auto) 0.6 10 ^3/uL (0.4-5.4); Lymphocytes % (auto) 9.3 % (10.0-50.0); Mean Corpuscular Hemoglobin 30.4 pg (28.0-32.0); Mean Corpuscular Hgb Conc. 32.8 g/dL (32.0-36.0); Mean Corpuscular Volume 92.8 fL (80.0-100.0); Monocytes # (auto) 1.1 10 ^3/uL (0-1.3); Monocytes % (auto) 15.5 % (0.0-12.0); Neutrophils # (auto) 5.1 10 ^3/uL (1.6-8.6); Neutrophils % (auto) 74.9 % (37.0-80.0); Nucleated Red Blood Cells % 0.1 %; Red Blood Cells 2.81 10^6/uL (4.0-5.20); Red Cell Distribution Width 14.1 % (11.8-14.3); White Blood Cell 6.8 10^3/uL (4.4-10.8)
[2021-07-11 14:17] LABS: Calcium 8.8 mg/dL (8.5-10.1)
[2021-07-11 14:26] LABS: Potassium 7.1 mmol/L (3.5-5.1)
[2021-07-11] MEDS: OCTREOTIDE ACETATE 500 MCG in SODIUM CHL 0.9% 99 ML IV SCH ×2 (14:52→22:15)
[2021-07-11] MEDS ORDERED: BUMETANIDE 2.5mg/10ml (0.25 mg/ml) INJ IV ONE (15:30)
[2021-07-11] MEDS: SODIUM ZIRCONIUM CYCL 10 GM PAK PO SCH ×2 (17:13→18:00)
[2021-07-11 17:37] LABS: Basophils # (auto) 0 10 ^3/uL (0-0.2); Basophils % (auto) 0.3 % (0.0-2.0); Eosinophils # (auto) 0.1 10 ^3/uL (0-0.8); Eosinophils % (auto) 1.5 % (0.0-7.0); Hematocrit 25.1 % (36.0-46.0); Hemoglobin 8.1 g/dL (12.2-16.2); Lymphocytes # (auto) 0.5 10 ^3/uL (0.4-5.4); Lymphocytes % (auto) 7.5 % (10.0-50.0); Mean Corpuscular Hemoglobin 30.6 pg (28.0-32.0); Mean Corpuscular Hgb Conc. 32.4 g/dL (32.0-36.0); Mean Corpuscular Volume 94.6 fL (80.0-100.0); Monocytes # (auto) 1.1 10 ^3/uL (0-1.3); Monocytes % (auto) 15.3 % (0.0-12.0); Neutrophils # (auto) 5.4 10 ^3/uL (1.6-8.6); Neutrophils % (auto) 75.4 % (37.0-80.0); Red Blood Cells 2.65 10^6/uL (4.0-5.20); Red Cell Distribution Width 14.4 % (11.8-14.3); White Blood Cell 7.2 10^3/uL (4.4-10.8)
[2021-07-11] MEDS ORDERED: SEVELAMER 800 MG TAB PO SCH (18:00)
[2021-07-11 20:37] LABS: Basophils # (auto) 0 10 ^3/uL (0-0.2); Basophils % (auto) 0.1 % (0.0-2.0); Eosinophils # (auto) 0 10 ^3/uL (0-0.8); Lymphocytes # (auto) 0.5 10 ^3/uL (0.4-5.4); Monocytes # (auto) 0.8 10 ^3/uL (0-1.3)
[2021-07-11 20:39] LABS: Eosinophils % (auto) 0.1 % (0.0-7.0); Hematocrit 23.5 % (36.0-46.0); Mean Corpuscular Hemoglobin 30.7 pg (28.0-32.0); Mean Corpuscular Hgb Conc. 33.8 g/dL (32.0-36.0); Mean Corpuscular Volume 90.6 fL (80.0-100.0); Monocytes % (auto) 13.2 % (0.0-12.0); Neutrophils # (auto) 4.5 10 ^3/uL (1.6-8.6); Neutrophils % (auto) 77.6 % (37.0-80.0); White Blood Cell 5.8 10^3/uL (4.4-10.8)
[2021-07-11 20:53] LABS: Albumin 3.1 g/dL (3.4-5.0); Calcium 8.6 mg/dL (8.5-10.1)
[2021-07-11 20:58] LABS: BUN/Creatinine Ratio 11.2; Bilirubin, Total 0.4 mg/dL (0.2-1.0); Total Protein 6.5 g/dL (6.4-8.2)
[2021-07-11 21:02] LABS: Potassium 7.7 mmol/L (3.5-5.1)
[2021-07-11] MEDS ORDERED: FUROSEMIDE INJECTION 100 MG in SODIUM CHL 0.9% 100 ML IV SCH (21:15)
[2021-07-11] MEDS ORDERED: LACTULOSE 20Gm/30ML SOLN PO SCH (21:30)
[2021-07-11 21:40] LABS: Urine Bacteria NONE SEEN /hpf (None Seen); Urine Blood 3+ /uL (Negative); Urine Specific Gravity 1.014 (1.001-1.035); Urine WBC 94 /hpf (0 - 5)
[2021-07-11] MEDS ORDERED: cefTRIAXone 1GM/50ML D5W 50 ML IV ONE (21:45)
[2021-07-11] MEDS ORDERED: traZODone HCL 50 MG TAB PO SCH (22:00)
[2021-07-11] MEDS ORDERED: ATORVASTATIN 20 MG TAB PO SCH (22:00)
[2021-07-11] MEDS ORDERED: PROMETHAZINE HCL 25 MG/ML 1ML IV PRN (22:15)
[2021-07-11] MEDS ORDERED: ETOMIDATE (2MG/ML) 20ML VIAL IV ONE (22:26)
[2021-07-11] MEDS ORDERED: SUCCINYLCHOLINE CHLORIDE 20 MG/ML 10ML VIAL IV ONE (22:26)
[2021-07-11] MEDS ORDERED: ROCURONIUM 10MG/ML 10ML VIAL IV ONE (22:28)
[2021-07-11] MEDS ORDERED: FUROSEMIDE INJECTION 10 ML ONE (22:35)
[2021-07-11] MEDS ORDERED: DEXTROSE 10% 1,000 ML IV ONE (23:00)
[2021-07-11] MEDS ORDERED: MIDAZOLAM DRIP 50 mg/50mL 50 ML IV ONE (23:46)
[2021-07-11] MEDS ORDERED: fentaNYL Drip 2500mCg/250mlNS 250 ML IV ONE (23:57)
[2021-07-12] MEDS ORDERED: InsuLIN REG 1unit/0.01ml Soln (100units/ml) IV SCH
[2021-07-12] MEDS ORDERED: CALCIUM GLUC 1,000mg/50ml-NS 50 ML IV SCH
[2021-07-12] MEDS ORDERED: ROCURONIUM 10MG/ML 10ML VIAL IV ONE ×2
[2021-07-12] MEDS ORDERED: MIDAZOLAM DRIP 50 mg/50mL 50 ML IV SCH
[2021-07-12] MEDS ORDERED: fentaNYL Drip 2500mCg/250mlNS 250 ML IV SCH
[2021-07-12] MEDS ORDERED: ATROPINE SULF 1 MG/10ml SYR IV ONE (00:19)
[2021-07-12] MEDS ORDERED: DOPamine 1600MCG/ML D5W 250 ML IV SCH (00:23)
[2021-07-12] MEDS ORDERED: SODIUM CHLORIDE 0.9% 1,000 ML IV ONE (00:23)
[2021-07-12] MEDS ORDERED: CALCIUM GLUC 1,000mg/50ml-NS 50 ML IV ONE (00:38)
[2021-07-12] MEDS ORDERED: MIDAZOLAM HCL 5 MG/ML-1ML VIAL IV ONE (01:01)
[2021-07-12 01:27] LABS: Basophils # (auto) 0 10 ^3/uL (0-0.2); Basophils % (auto) 0.1 % (0.0-2.0); Eosinophils # (auto) 0 10 ^3/uL (0-0.8); Eosinophils % (auto) 0.1 % (0.0-7.0); Hematocrit 27.3 % (36.0-46.0); Lymphocytes # (auto) 0.5 10 ^3/uL (0.4-5.4); Lymphocytes % (auto) 8.5 % (10.0-50.0); Mean Corpuscular Hemoglobin 30.2 pg (28.0-32.0); Mean Corpuscular Volume 91.6 fL (80.0-100.0); Monocytes # (auto) 0.5 10 ^3/uL (0-1.3); Monocytes % (auto) 7.3 % (0.0-12.0); Neutrophils # (auto) 5.4 10 ^3/uL (1.6-8.6); Red Blood Cells 2.97 10^6/uL (4.0-5.20); White Blood Cell 6.4 10^3/uL (4.4-10.8)
[2021-07-12 01:34] LABS: INR 1.16 (0.9-1.15); Partial Thromboplastin Time 28.5 sec (23.6-33.0)
[2021-07-12 01:39] LABS: Albumin 3.1 g/dL (3.4-5.0); Calcium 9.1 mg/dL (8.5-10.1)
[2021-07-12 01:41] LABS: BUN/Creatinine Ratio 11.3; Lactic Acid w/Reflex 4.5 mmol/L (0.4-2.0)
[2021-07-12 01:43] LABS: Bilirubin, Total 0.5 mg/dL (0.2-1.0); Total Protein 6.4 g/dL (6.4-8.2)
[2021-07-12 01:51] LABS: Potassium 8.6 mmol/L (3.5-5.1)
[2021-07-12] MEDS ORDERED: ALBUTEROL SULF 2.5 MG/0.5ML(0.5%) NEB SOLN NEB SCH (02:00)
[2021-07-12 02:02] VITALS: BP 131/69
[2021-07-12] MEDS ORDERED: ATROPINE SULF 1 MG/10ml SYR IM ONE (03:35)
[2021-07-12] MEDS ORDERED: DOPamine 1600mCg/ml 400MG/250ml NSorD5 KIT/BAG IV ONE (03:35)
[2021-07-12] MEDS ORDERED: CALCIUM CHLOR(10%) 100MG/ML 10ML SYRINGE IV ONE (03:35)
[2021-07-12] MEDS ORDERED: cefTRIAXone 1GM/50ML D5W 50 ML IV SCH (09:00)
[2021-07-12] MEDS ORDERED: ETOMIDATE (2MG/ML) 20ML VIAL IV ONE ×2 (09:15)
[2021-07-12] MEDS ORDERED: PANTOPRAZOLE 40 MG/10 ML VIAL INJ IV SCH (10:00)
== END 2021-07-12 03:36 | disposition short-term general hospital (02) | DRG 469 ==
LOC: EDBD 00:32 → ER 00:32 → OVERFLOW 10:19
PROVIDERS: ADMIT Internal Medicine; ATTEND Internal Medicine
PROC: 5A12012 Performance of Cardiac Output, Single, Manual (ICD-10-PCS; principal; 2021-07-12)
DX: N17.9 Acute kidney failure, unspecified (principal); J96.01 Acute respiratory failure with hypoxia; E11.22 Type 2 diabetes mellitus with diabetic chronic kidney disease; E11.40 Type 2 diabetes mellitus with diabetic neuropathy, unspecified; D64.9 Anemia, unspecified; E78.5 Hyperlipidemia, unspecified; E87.5 Hyperkalemia; F31.9 Bipolar disorder, unspecified; I12.9 Hypertensive chronic kidney disease with stage 1 through stage 4 chronic kidney disease, or unspecified chronic kidney disease; I25.10 Atherosclerotic heart disease of native coronary artery without angina pectoris; N18.31 Chronic kidney disease, stage 3a; Z20.822 Contact with and (suspected) exposure to COVID-19; F41.9 Anxiety disorder, unspecified; R79.89 Other specified abnormal findings of blood chemistry; R29.6 Repeated falls; Z79.4 Long term (current) use of insulin; Z80.7 Family history of other malignant neoplasms of lymphoid, hematopoietic and related tissues; Z82.49 Family history of ischemic heart disease and other diseases of the circulatory system; Z83.3 Family history of diabetes mellitus; Z86.73 Personal history of transient ischemic attack (TIA), and cerebral infarction without residual deficits; Z90.710 Acquired absence of both cervix and uterus; Z91.81 History of falling; Z98.61 Coronary angioplasty status; Z88.0 Allergy status to penicillin; Z88.8 Allergy status to other drugs, medicaments and biological substances
CPT/HCPCS: 36415; 36600; 70450; 71045; 71250; 72125; 74176; 80048; 80053; 80307; 81001; 82140; 82805; 82962; 83605; 83735; 83880; 84100; 84484; 85025; 85379; 85610; 85730; 86850; 86900; 86901; 87040; 87070; 87077; 87186; 87205; 87426; 92950; 93005; 94002; 94644; 96374; 99291; C9113; G0378; J0330; J0696; J1815; J2250; J2405

== ENCOUNTER 2021-07-31 19:09 | Emergency (ER) | payer MEDICAID ==
[~2021-07-31] VITALS: Ht 172.7 cm; Wt 34.0 kg
[2021-07-31] MEDS ORDERED: ACCU-CHEK COMFORT CURVE STRIP VI ONE (19:30)
[2021-07-31 20:25] LABS: Basophils # (auto) 0.1 10 ^3/uL (0-0.2); Basophils % (auto) 1.1 % (0.0-2.0); Eosinophils # (auto) 0.1 10 ^3/uL (0-0.8); Eosinophils % (auto) 1.6 % (0.0-7.0); Hematocrit 24.9 % (36.0-46.0); Hemoglobin 8.4 g/dL (12.2-16.2); Lymphocytes # (auto) 1.2 10 ^3/uL (0.4-5.4); Lymphocytes % (auto) 22.7 % (10.0-50.0); Mean Corpuscular Hemoglobin 30.2 pg (28.0-32.0); Mean Corpuscular Hgb Conc. 33.5 g/dL (32.0-36.0); Mean Corpuscular Volume 90.2 fL (80.0-100.0); Monocytes # (auto) 0.5 10 ^3/uL (0-1.3); Monocytes % (auto) 10.2 % (0.0-12.0); Neutrophils # (auto) 3.4 10 ^3/uL (1.6-8.6); Neutrophils % (auto) 64.4 % (37.0-80.0); Nucleated Red Blood Cells % 0.1 %; Red Blood Cells 2.77 10^6/uL (4.0-5.20); Red Cell Distribution Width 16.3 % (11.8-14.3); White Blood Cell 5.3 10^3/uL (4.4-10.8)
[2021-07-31 20:36] LABS: Calcium 8.5 mg/dL (8.5-10.1); Potassium 3.6 mmol/L (3.5-5.1)
[2021-07-31 20:40] LABS: Albumin 2.4 g/dL (3.4-5.0); BUN/Creatinine Ratio 9.8
[2021-07-31 20:44] LABS: Bilirubin, Total 0.4 mg/dL (0.2-1.0); Total Protein 5.6 g/dL (6.4-8.2)
[2021-08-01 06:51] LABS: INR 1.23 (0.9-1.15)
[2021-08-01 10:09] VITALS: BP 141/66
== END 2021-08-01 10:44 | disposition short-term general hospital (02) ==
LOC: EDBD 19:09 → ER 19:11
DX: I62.00 Nontraumatic subdural hemorrhage, unspecified (principal); R41.82 Altered mental status, unspecified; E11.21 Type 2 diabetes mellitus with diabetic nephropathy; D64.9 Anemia, unspecified; E46 Unspecified protein-calorie malnutrition; R09.89 Other specified symptoms and signs involving the circulatory and respiratory systems; I10 Essential (primary) hypertension; E78.5 Hyperlipidemia, unspecified; Z97.10 Presence of artificial limb (complete) (partial), unspecified; Z98.61 Coronary angioplasty status; Z79.899 Other long term (current) drug therapy; Z88.0 Allergy status to penicillin; Z88.8 Allergy status to other drugs, medicaments and biological substances
CPT/HCPCS: 36415; 70450; 71045; 80053; 82962; 83605; 83880; 84484; 85025; 85610; 85730; 87040; 87426; 93005

== ENCOUNTER 2021-08-21 05:33 | Emergency (ER) | payer MEDICAID ==
[~2021-08-21] VITALS: Ht 177.8 cm; Wt 77.6 kg
[~2021-08-21 05:33] MED LIST changes: -BUSP15TA60 PO; -HYDR50CA2 PO; +LEVO250T69 PO; -OMEP20TA PO
[2021-08-21 06:45] LABS: Basophils # (auto) 0.1 10 ^3/uL (0-0.2); Basophils % (auto) 0.8 % (0.0-2.0); Eosinophils # (auto) 0.3 10 ^3/uL (0-0.8); Eosinophils % (auto) 3.5 % (0.0-7.0); Hematocrit 25.7 % (36.0-46.0); Hemoglobin 8.9 g/dL (12.2-16.2); Lymphocytes # (auto) 1.6 10 ^3/uL (0.4-5.4); Lymphocytes % (auto) 22.1 % (10.0-50.0); Mean Corpuscular Hemoglobin 30.9 pg (28.0-32.0); Mean Corpuscular Hgb Conc. 34.6 g/dL (32.0-36.0); Mean Corpuscular Volume 89.4 fL (80.0-100.0); Monocytes # (auto) 0.8 10 ^3/uL (0-1.3); Neutrophils # (auto) 4.6 10 ^3/uL (1.6-8.6); Neutrophils % (auto) 62.6 % (37.0-80.0); Nucleated Red Blood Cells % 0.1 %; Red Blood Cells 2.88 10^6/uL (4.0-5.20); Red Cell Distribution Width 15.3 % (11.8-14.3); White Blood Cell 7.4 10^3/uL (4.4-10.8)
[2021-08-21 07:00] LABS: INR 1.22 (0.9-1.15); Partial Thromboplastin Time 27.4 sec (23.6-33.0)
[2021-08-21 07:16] LABS: Albumin 2.6 g/dL (3.4-5.0); Calcium 8.3 mg/dL (8.5-10.1); Magnesium 1.6 mg/dL (1.6-2.6)
[2021-08-21 07:18] LABS: BUN/Creatinine Ratio 14.4
[2021-08-21 07:25] LABS: Bilirubin, Total 0.5 mg/dL (0.2-1.0); Total Protein 5.8 g/dL (6.4-8.2)
[2021-08-21 08:55] LABS: Urine Bacteria NONE SEEN /hpf (None Seen); Urine Blood Negative /uL (Negative); Urine Specific Gravity 1.009 (1.001-1.035); Urine WBC <1 /hpf (0 - 5)
[2021-08-21] MEDS ORDERED: MORPHINE SULFATE INJECTION 2 MG/ML SYRG IV ONE (09:15)
[2021-08-21] MEDS: ONDANSETRON HCL 4 MG/2 ML VIAL IV ONE ×2 (09:20→09:22)
[2021-08-21] MEDS ORDERED: HYDROcodone-ACET 5/325MG TAB PO ONE (09:30)
[2021-08-21] MEDS ORDERED: cefTRIAXone 1GM/50ML D5W 50 ML IV ONE (17:00)
[2021-08-21] MEDS ORDERED: cefTRIAXone SOD 1,000 MG VL IM ONE (17:15)
[2021-08-21 17:47] VITALS: BP 165/81
== END 2021-08-21 17:57 | disposition home or self-care (01) ==
LOC: ER 05:33 → EDBD 05:33 → ER 17:57
DX: R07.89 Other chest pain (principal); J18.9 Pneumonia, unspecified organism; E11.22 Type 2 diabetes mellitus with diabetic chronic kidney disease; I12.0 Hypertensive chronic kidney disease with stage 5 chronic kidney disease or end stage renal disease; N18.6 End stage renal disease; D63.1 Anemia in chronic kidney disease; E11.21 Type 2 diabetes mellitus with diabetic nephropathy; Z98.61 Coronary angioplasty status; Z20.822 Contact with and (suspected) exposure to COVID-19; Z88.0 Allergy status to penicillin
CPT/HCPCS: 36415; 71045; 80053; 81001; 82962; 83735; 83880; 84443; 84484; 85025; 85610; 85730; 87426; 93005; 96372; 99285; J0696; J2405

== ENCOUNTER 2021-08-22 05:42 | Emergency (ER) | payer MEDICAID ==
[~2021-08-22] VITALS: Ht 172.7 cm; Wt 74.8 kg
[2021-08-22 06:39] LABS: Hematocrit 26.6 % (36.0-46.0); Hemoglobin 9.3 g/dL (12.2-16.2); Mean Corpuscular Hemoglobin 30.9 pg (28.0-32.0); Mean Corpuscular Volume 88.2 fL (80.0-100.0); Red Blood Cells 3.02 10^6/uL (4.0-5.20); Red Cell Distribution Width 15.4 % (11.8-14.3); White Blood Cell 7.5 10^3/uL (4.4-10.8)
[2021-08-22 06:51] LABS: INR 1.26 (0.9-1.15); Partial Thromboplastin Time 27.9 sec (23.6-33.0)
[2021-08-22 06:52] LABS: Albumin 2.8 g/dL (3.4-5.0); BUN/Creatinine Ratio 13.3; Calcium 8.7 mg/dL (8.5-10.1); Magnesium 1.4 mg/dL (1.6-2.6); Potassium 4.3 mmol/L (3.5-5.1)
[2021-08-22 06:57] LABS: Bilirubin, Total 0.5 mg/dL (0.2-1.0); Total Protein 6.2 g/dL (6.4-8.2)
[2021-08-22 07:15] LABS: Band Neutrophils % (manual) 0; Basophils % (manual) 0 (0.0-2.0); Metamyelocytes % 0; Myelocytes % 0; Promyelocytes % 0
[2021-08-22 07:16] LABS: Blast Cells 0; Reactive Lymphocytes 0
[2021-08-22] MEDS ORDERED: KETOROLAC TROMETH 30 MG/ML 1ML VIAL IV ONE (07:30)
[2021-08-22 07:32] LABS: Eosinophils % (manual) 4 (0-7); Lymphocytes % (manual) 17 (10.0-50.0); Monocytes % (manual) 3 (0-12)
[2021-08-22] MEDS ORDERED: LORazepam 2MG/ML-1ML VIAL IV ONE (08:30)
[2021-08-22 10:00] VITALS: BP 181/88
== END 2021-08-22 10:26 | disposition left against medical advice (07) ==
LOC: EDBD 05:42 → ER 05:42
DX: R07.89 Other chest pain (principal); D53.9 Nutritional anemia, unspecified; E83.42 Hypomagnesemia; E46 Unspecified protein-calorie malnutrition; I12.0 Hypertensive chronic kidney disease with stage 5 chronic kidney disease or end stage renal disease; E11.22 Type 2 diabetes mellitus with diabetic chronic kidney disease; N18.6 End stage renal disease; I25.10 Atherosclerotic heart disease of native coronary artery without angina pectoris; I25.2 Old myocardial infarction; E78.5 Hyperlipidemia, unspecified; Z68.25 Body mass index [BMI] 25.0-25.9, adult; Z90.710 Acquired absence of both cervix and uterus; Z79.82 Long term (current) use of aspirin; Z79.899 Other long term (current) drug therapy; Z79.2 Long term (current) use of antibiotics; Z88.8 Allergy status to other drugs, medicaments and biological substances
CPT/HCPCS: 36415; 71045; 80053; 83735; 83880; 84443; 84484; 85007; 85027; 85610; 85730; 93005; 96374; 96375; 99285; J1885; J2060

== ENCOUNTER 2021-08-22 20:28 | Emergency (ER) | payer MEDICAID ==
[~2021-08-22] VITALS: Ht 177.8 cm; Wt 77.6 kg
[2021-08-22 22:20] LABS: Hematocrit 28.1 % (36.0-46.0); Hemoglobin 9.7 g/dL (12.2-16.2); Mean Corpuscular Hemoglobin 30.5 pg (28.0-32.0); Mean Corpuscular Hgb Conc. 34.3 g/dL (32.0-36.0); Mean Corpuscular Volume 88.8 fL (80.0-100.0); Red Blood Cells 3.17 10^6/uL (4.0-5.20); Red Cell Distribution Width 15.5 % (11.8-14.3); White Blood Cell 7.4 10^3/uL (4.4-10.8)
[2021-08-22 22:24] LABS: Basophils % (manual) 0 (0.0-2.0); Blast Cells 0; Metamyelocytes % 0; Myelocytes % 0; Promyelocytes % 0; Reactive Lymphocytes 0
[2021-08-22 22:47] LABS: Albumin 3.1 g/dL (3.4-5.0); Calcium 8.8 mg/dL (8.5-10.1); Potassium 3.8 mmol/L (3.5-5.1)
[2021-08-22 22:52] LABS: Band Neutrophils % (manual) 5; Lymphocytes % (manual) 30 (10.0-50.0); Monocytes % (manual) 10 (0-12)
[2021-08-22 22:53] LABS: BUN/Creatinine Ratio 14.5; Bilirubin, Total 0.6 mg/dL (0.2-1.0); Eosinophils % (manual) 2 (0-7); Total Protein 6.6 g/dL (6.4-8.2)
[2021-08-22] MEDS ORDERED: MORPHINE SULFATE 4 MG/ML SYR/VIAL IV ONE (23:45)
[2021-08-22] MEDS ORDERED: ONDANSETRON HCL 4 MG/2 ML VIAL IV ONE (23:45)
[2021-08-23 02:00] VITALS: BP 123/67
== END 2021-08-23 02:42 | disposition home or self-care (01) ==
LOC: EDBD 20:28 → EDUNIT# 20:28 → ER 20:30
DX: R07.89 Other chest pain (principal); J81.1 Chronic pulmonary edema; E11.22 Type 2 diabetes mellitus with diabetic chronic kidney disease; I12.0 Hypertensive chronic kidney disease with stage 5 chronic kidney disease or end stage renal disease; N18.6 End stage renal disease; E78.5 Hyperlipidemia, unspecified; Z90.710 Acquired absence of both cervix and uterus; Z88.0 Allergy status to penicillin; Z88.8 Allergy status to other drugs, medicaments and biological substances
CPT/HCPCS: 36415; 71045; 80053; 84484; 85007; 85027; 93005; 96374; 96375; 99285; J2270; J2405

== ENCOUNTER 2021-08-23 16:03 | Emergency (ER) | payer MEDICAID ==
[~2021-08-23] VITALS: Ht 170.2 cm; Wt 86.2 kg
[2021-08-23 16:18] VITALS: BP 151/83
[2021-08-23 18:53] LABS: Basophils # (auto) 0.1 10 ^3/uL (0-0.2); Basophils % (auto) 1.4 % (0.0-2.0); Eosinophils # (auto) 0.3 10 ^3/uL (0-0.8); Eosinophils % (auto) 3.8 % (0.0-7.0); Hematocrit 28.2 % (36.0-46.0); Hemoglobin 9.6 g/dL (12.2-16.2); Lymphocytes % (auto) 27.1 % (10.0-50.0); Mean Corpuscular Hemoglobin 30.2 pg (28.0-32.0); Mean Corpuscular Volume 88.8 fL (80.0-100.0); Monocytes # (auto) 0.9 10 ^3/uL (0-1.3); Monocytes % (auto) 12.1 % (0.0-12.0); Neutrophils % (auto) 55.6 % (37.0-80.0); Nucleated Red Blood Cells % 0.1 %; Red Blood Cells 3.18 10^6/uL (4.0-5.20); Red Cell Distribution Width 15.6 % (11.8-14.3); White Blood Cell 7.2 10^3/uL (4.4-10.8)
[2021-08-23 21:49] LABS: Potassium 4.4 mmol/L (3.5-5.1)
[2021-08-23 21:50] LABS: Albumin 3.1 g/dL (3.4-5.0); BUN/Creatinine Ratio 17.6; Bilirubin, Total 0.5 mg/dL (0.2-1.0); Calcium 8.4 mg/dL (8.5-10.1); Total Protein 6.6 g/dL (6.4-8.2)
== END 2021-08-23 22:47 | disposition home or self-care (01) ==
LOC: ER 16:03 → EDBD 16:03 → EDUNIT# 16:03 → ER 22:47
DX: R53.1 Weakness (principal); I12.0 Hypertensive chronic kidney disease with stage 5 chronic kidney disease or end stage renal disease; E11.22 Type 2 diabetes mellitus with diabetic chronic kidney disease; N18.6 End stage renal disease; I25.10 Atherosclerotic heart disease of native coronary artery without angina pectoris; I25.2 Old myocardial infarction; E78.5 Hyperlipidemia, unspecified; Z90.710 Acquired absence of both cervix and uterus; Z79.2 Long term (current) use of antibiotics; Z79.82 Long term (current) use of aspirin; Z88.0 Allergy status to penicillin; Z88.8 Allergy status to other drugs, medicaments and biological substances; Z79.899 Other long term (current) drug therapy
CPT/HCPCS: 36415; 80053; 83880; 84484; 85025; 93005

== ENCOUNTER 2021-08-26 10:14 | Emergency (ER) | payer MEDICAID ==
[~2021-08-26] VITALS: Ht 177.8 cm; Wt 77.6 kg
[2021-08-26 12:43] LABS: Basophils # (auto) 0.1 10 ^3/uL (0-0.2); Basophils % (auto) 1.2 % (0.0-2.0); Eosinophils # (auto) 0.1 10 ^3/uL (0-0.8); Eosinophils % (auto) 1.6 % (0.0-7.0); Hematocrit 31.1 % (36.0-46.0); Hemoglobin 10.4 g/dL (12.2-16.2); INR 1.1 (0.9-1.15); Lymphocytes # (auto) 1.6 10 ^3/uL (0.4-5.4); Lymphocytes % (auto) 20.3 % (10.0-50.0); Mean Corpuscular Hemoglobin 30.3 pg (28.0-32.0); Mean Corpuscular Hgb Conc. 33.5 g/dL (32.0-36.0); Mean Corpuscular Volume 90.5 fL (80.0-100.0); Monocytes # (auto) 0.6 10 ^3/uL (0-1.3); Monocytes % (auto) 7.6 % (0.0-12.0); Neutrophils # (auto) 5.5 10 ^3/uL (1.6-8.6); Neutrophils % (auto) 69.3 % (37.0-80.0); Partial Thromboplastin Time 27.2 sec (23.6-33.0); Red Blood Cells 3.43 10^6/uL (4.0-5.20); Red Cell Distribution Width 15.7 % (11.8-14.3)
[2021-08-26 12:47] LABS: Albumin 3.4 g/dL (3.4-5.0); Calcium 9.2 mg/dL (8.5-10.1); Potassium 5.1 mmol/L (3.5-5.1)
[2021-08-26 12:55] LABS: Bilirubin, Total 0.4 mg/dL (0.2-1.0); Total Protein 7.2 g/dL (6.4-8.2)
[2021-08-26 14:13] VITALS: BP 140/60
[2021-08-26] MEDS ORDERED: HYDROcodone-ACET 10/325MG TAB PO ONE (14:45)
== END 2021-08-26 16:30 | disposition home or self-care (01) ==
LOC: ER 10:14
DX: Z49.01 Encounter for fitting and adjustment of extracorporeal dialysis catheter (principal); I25.10 Atherosclerotic heart disease of native coronary artery without angina pectoris; I25.2 Old myocardial infarction; E78.5 Hyperlipidemia, unspecified; I12.0 Hypertensive chronic kidney disease with stage 5 chronic kidney disease or end stage renal disease; E11.22 Type 2 diabetes mellitus with diabetic chronic kidney disease; N18.6 End stage renal disease; Z99.2 Dependence on renal dialysis; Z79.82 Long term (current) use of aspirin; Z79.899 Other long term (current) drug therapy; Z88.0 Allergy status to penicillin; Z88.8 Allergy status to other drugs, medicaments and biological substances; Z20.822 Contact with and (suspected) exposure to COVID-19
CPT/HCPCS: 36415; 71045; 73502; 80053; 84484; 85025; 85610; 85730

== ENCOUNTER 2022-06-28 06:54 | Day surgery (SDC) | payer MEDICAID ==
[~2022-06-28] VITALS: Ht 177.8 cm; Wt 93.4 kg
[2022-06-28] VITALS (14 sets, daily range): BP systolic 127–172; BP diastolic 70–91
[~2022-06-28 06:54] MED LIST changes: -GLIP10TA9 PO; -LEVO250T69 PO; -METF-372 PO; +ZOLP10TA PO
[2022-06-28] MEDS ORDERED: ANGIOMAX 250 MG VIAL IV ONE (08:53)
[2022-06-28] MEDS ORDERED: MIDAZOLAM HCL 2MG/2ML 2ml VIAL (1mg/ml) ONE (08:54)
[2022-06-28] MEDS ORDERED: fentaNYL CITRATE 100 MCG/2 ML VL ONE (08:54)
[2022-06-28] MEDS ORDERED: HEPARIN SODIUM (PORCINE) 5000 UNITS/ML 1ML VIAL ONE (08:54)
[2022-06-28] MEDS ORDERED: SODIUM CHL 0.9% 50 ML ONE (08:54)
[2022-06-28] MEDS ORDERED: VERAPAMIL 2.5MG/ML INJ 2ML VIAL IV ONE (08:54)
[2022-06-28] MEDS ORDERED: ATROPINE SULF 1 MG/10ml SYR ONE (10:02)
[2022-06-28] MEDS ORDERED: EPINEPHrine HCL 1 MG/10 ML SYRG ONE (10:02)
[2022-06-28] MEDS ORDERED: ASPirin 325 MG TAB ONE (10:12)
[2022-06-28] MEDS ORDERED: TICAGRELOR 90 MG TAB ONE (10:12)
[2022-06-28] MEDS ORDERED: HYDROcodone-ACET 5/325MG TAB PO ONE (14:00)
== END 2022-06-28 15:52 | disposition home or self-care (01) ==
LOC: CATH 06:54
PROVIDERS: ATTEND Internal Medicine Cardiovascular Disease
DX: I25.10 Atherosclerotic heart disease of native coronary artery without angina pectoris (principal); I25.82 Chronic total occlusion of coronary artery; T82.855A Stenosis of coronary artery stent, initial encounter; R06.02 Shortness of breath; R07.9 Chest pain, unspecified; E78.5 Hyperlipidemia, unspecified; I10 Essential (primary) hypertension; E11.40 Type 2 diabetes mellitus with diabetic neuropathy, unspecified; E11.22 Type 2 diabetes mellitus with diabetic chronic kidney disease; I25.2 Old myocardial infarction; Z79.899 Other long term (current) drug therapy; Z20.822 Contact with and (suspected) exposure to COVID-19; Y83.8 Other surgical procedures as the cause of abnormal reaction of the patient, or of later complication, without mention of misadventure at the time of the procedure
CPT/HCPCS: 93458; C1725; C1726; C1760; C1769; C1874; C1876; C1887; C1894; C9600; J0583; J2250; J3010; U0003; 99152; 99153

== ENCOUNTER 2023-01-13 20:00 | Emergency (ER) | payer MEDICAID ==
[~2023-01-13] VITALS: Ht 175.3 cm; Wt 86.3 kg
[~2023-01-13 20:00] MED LIST changes: +AMIT10TA12 PO; -AMIT1TAB34 PO; +LORA-1123 PO; -LORA1TAB23 PO; -LURA40TA PO; +LURA40TA2 PO
[2023-01-13 20:32] VITALS: BP 148/53; PULSE 87; RESP 18; TEMP 98.2; O2SAT 99
[2023-01-13] MEDS ORDERED: OXYCODONE W/ ACETAMINOPHEN 5/325MG TABLET PO ONE (21:00)
[2023-01-13] MEDS ORDERED: HYDR-4798 PO (23:33)
== END 2023-01-13 23:51 | disposition home or self-care (01) ==
LOC: ER 20:00 → EDBD 20:00 → ER 23:51
DX: M25.562 Pain in left knee (principal); E11.9 Type 2 diabetes mellitus without complications; I25.2 Old myocardial infarction; Z90.710 Acquired absence of both cervix and uterus; Z88.0 Allergy status to penicillin; Z88.6 Allergy status to analgesic agent; W18.09XA Striking against other object with subsequent fall, initial encounter; Y93.89 Activity, other specified; Y92.89 Other specified places as the place of occurrence of the external cause; Y99.8 Other external cause status
CPT/HCPCS: 73562

== ENCOUNTER 2023-05-24 11:24 | Inpatient (IN) | payer MEDICAID ==
[~2023-05-24] VITALS: Ht 177.8 cm; Wt 80.0 kg
[~2023-05-24 11:24] MED LIST changes: +HYDR-4798 PO
[2023-05-24 13:04] LABS: Basophils # (auto) 0.1 10 ^3/uL (0-0.2); Basophils % (auto) 0.7 % (0.0-2.0); Eosinophils # (auto) 0.1 10 ^3/uL (0-0.8); Eosinophils % (auto) 1.3 % (0.0-7.0); Hematocrit 38.4 % (36.0-46.0); Hemoglobin 12.4 g/dL (12.2-16.2); Lymphocytes # (auto) 1.7 10 ^3/uL (0.4-5.4); Lymphocytes % (auto) 22.3 % (10.0-50.0); Mean Corpuscular Hemoglobin 29.8 pg (28.0-32.0); Mean Corpuscular Hgb Conc. 32.2 g/dL (32.0-36.0); Mean Corpuscular Volume 92.7 fL (80.0-100.0); Monocytes # (auto) 0.6 10 ^3/uL (0-1.3); Monocytes % (auto) 7.7 % (0.0-12.0); Red Blood Cells 4.14 10^6/uL (4.0-5.20); Red Cell Distribution Width 12.3 % (11.8-14.3); White Blood Cell 7.4 10^3/uL (4.4-10.8)
[2023-05-24 14:08] LABS: Alanine Aminotransferase 29 U/L (7-40); Albumin 4.2 g/dL (3.2-4.8); Alkaline Phosphatase 80 U/L (46-116); Anion Gap 9 (5-15); Aspartate Aminotransferase 19 U/L (13-40); BUN/Creatinine Ratio 22.9 (10.0-20.0); Bilirubin, Total 0.4 mg/dL (0.2-1.0); Blood Urea Nitrogen 39 mg/dL (9-23); Carbon Dioxide 20 mmol/L (20-30); Chloride 111 mmol/L (98-107); Glucose 123 mg/dL (74-106); Sodium 140 mmol/L (136-145); Total Protein 6.5 g/dL (5.7-8.2)
[2023-05-24 14:16] LABS: CRP High Sensitivity 1.83 mg/dL (<1.0)
[2023-05-24 14:40] LABS: Potassium 5.9 mmol/L (3.5-5.1)
[2023-05-24] MEDS ORDERED: CALCIUM GLUC 1,000mg/50ml-NS 50 ML IV ONE (14:45)
[2023-05-24] MEDS ORDERED: ALBUTEROL SULF 2.5 MG/0.5ML(0.5%) NEB SOLN NEB ONE (14:45)
[2023-05-24] MEDS ORDERED: SODIUM ZIRCONIUM CYCL 10 GM PAK PO ONE (14:45)
[2023-05-24] MEDS ORDERED: SODIUM BICARBONATE 8.4% INJ 50ML SYRINGE IV ONE (14:45)
[2023-05-24] MEDS ORDERED: InsuLIN REG 1unit/0.01ml Soln (100units/ml) IV ONE (14:45)
[2023-05-24] MEDS ORDERED: DEXTROSE (50%) 50ML SYRG IV ONE (14:45)
[2023-05-24] MEDS ORDERED: FUROSEMIDE 20 MG/2 ML VIAL IV ONE (14:45)
[2023-05-24] MEDS ORDERED: VANCOMYCIN 1GM/200ML 250 ML IV ONE (15:00)
[2023-05-24] MEDS ORDERED: NITROGLYCERIN 0.4 MG SL TAB SL PRN (15:45)
[2023-05-24] MEDS ORDERED: ACETAMINOPHEN 325 MG TAB PO PRN (15:45)
[2023-05-24] MEDS ORDERED: MORPHINE SULFATE INJ 2 MG/ml SYRG IV PRN (15:45)
[2023-05-24] MEDS ORDERED: hydrALAZINE HCL 20 MG/ML VL IV PRN (16:30)
[2023-05-24] MEDS ORDERED: DEXTROSE (50%) 50ML SYRG IV PRN (16:30)
[2023-05-24 16:45] LABS: Erythrocyte Sedimentation Rate 21 mm/hr (0-20)
[2023-05-24 21:05] VITALS: PULSE 95; RESP 20; O2SAT 97
[2023-05-24] MEDS: ACCU-CHEK COMFORT CURVE STRIP VI SCH ×2 (21:15→21:41)
[2023-05-24] MEDS: InsuLIN REG 1unit/0.01ml Soln (100units/ml) SC SCH ×2 (21:15→21:41)
[2023-05-24] MEDS: ONDANSETRON HCL 4 MG/2 ML VIAL IV PRN (21:26)
[2023-05-24] MEDS: MORPHINE SULFATE INJ 2 MG/ml SYRG IV PRN (21:27)
[2023-05-24] MEDS: NIFEdipine ER 30 MG TAB PO SCH (21:28)
[2023-05-24] MEDS: ATORVASTATIN 20 MG TAB PO SCH (21:28)
[2023-05-24] MEDS: traZODone HCL 50 MG TAB PO SCH (21:34)
[2023-05-24 22:38] VITALS: BP 142/80; PULSE 98; RESP 18; TEMP 98.6; O2SAT 99
[2023-05-24] MEDS ORDERED: RISP2TAB62 PO (22:46)
[2023-05-24] MEDS ORDERED: EMPA1TAB PO (22:46)
[2023-05-24] MEDS ORDERED: HYDR1CAP27 PO (22:46)
[2023-05-24] MEDS ORDERED: LINA145C PO (22:46)
[2023-05-24] MEDS ORDERED: CLOP75TA70 PO (22:46)
[2023-05-24] MEDS: CLINDAMYCIN 600MG IV 50 ML IV SCH (23:21)
[2023-05-24 23:23] VITALS: BP 131/66; PULSE 98; RESP 18; TEMP 98.1; O2SAT 99
[2023-05-24 23:38] VITALS: BP 121/68; PULSE 80; PULSE 98; RESP 18; TEMP 98; O2SAT 99
[2023-05-25] VITALS (7 sets, daily range): BP systolic 117–151; BP diastolic 56–80; PULSE 83–92; RESP 16–20; TEMP 97.6–98.4; O2SAT 91–99
[2023-05-25] MEDS: MORPHINE SULFATE INJ 2 MG/ml SYRG IV PRN ×4 (02:02→20:44)
[2023-05-25] MEDS: CLINDAMYCIN 600MG IV 50 ML IV SCH (05:19)
[2023-05-25] MEDS: ACCU-CHEK COMFORT CURVE STRIP VI SCH ×4 (06:10→22:00)
[2023-05-25] MEDS: InsuLIN REG 1unit/0.01ml Soln (100units/ml) SC SCH ×4 (06:21→22:00)
[2023-05-25 06:57] LABS: Basophils # (auto) 0.1 10 ^3/uL (0-0.2); Basophils % (auto) 0.8 % (0.0-2.0); Eosinophils # (auto) 0.1 10 ^3/uL (0-0.8); Eosinophils % (auto) 1.3 % (0.0-7.0); Hematocrit 31.5 % (36.0-46.0); Hemoglobin 10.5 g/dL (12.2-16.2); Lymphocytes # (auto) 1.5 10 ^3/uL (0.4-5.4); Lymphocytes % (auto) 22.5 % (10.0-50.0); Mean Corpuscular Hemoglobin 30.1 pg (28.0-32.0); Mean Corpuscular Hgb Conc. 33.2 g/dL (32.0-36.0); Mean Corpuscular Volume 90.4 fL (80.0-100.0); Monocytes # (auto) 0.8 10 ^3/uL (0-1.3); Monocytes % (auto) 11.4 % (0.0-12.0); Neutrophils # (auto) 4.4 10 ^3/uL (1.6-8.6); Red Blood Cells 3.48 10^6/uL (4.0-5.20); Red Cell Distribution Width 12.4 % (11.8-14.3); White Blood Cell 6.9 10^3/uL (4.4-10.8)
[2023-05-25 07:04] LABS: Alanine Aminotransferase 21 U/L (7-40); Albumin 3.8 g/dL (3.2-4.8); Alkaline Phosphatase 65 U/L (46-116); Anion Gap 8 (5-15); Aspartate Aminotransferase 15 U/L (13-40); BUN/Creatinine Ratio 15.6 (10.0-20.0); Carbon Dioxide 24 mmol/L (20-30); Chloride 108 mmol/L (98-107); Glucose 145 mg/dL (74-106); Potassium 5.2 mmol/L (3.5-5.1); Sodium 140 mmol/L (136-145)
[2023-05-25 07:05] LABS: Bilirubin, Total 0.5 mg/dL (0.2-1.0); Total Protein 5.9 g/dL (5.7-8.2)
[2023-05-25 07:07] LABS: Blood Urea Nitrogen 28 mg/dL (9-23)
[2023-05-25] MEDS ORDERED: DEXTROSE (50%) 50ML SYRG IV ONE (07:45)
[2023-05-25] MEDS ORDERED: InsuLIN REG 1unit/0.01ml Soln (100units/ml) IV ONE (07:45)
[2023-05-25] MEDS ORDERED: SODIUM ZIRCONIUM CYCL 10 GM PAK PO ONE (07:45)
[2023-05-25] MEDS ORDERED: CEFEPIME 2GM/50ML NS 50 ML IV SCH (10:00)
[2023-05-25 11:26] LABS: Erythrocyte Sedimentation Rate 20 mm/hr (0-20)
[2023-05-25] MEDS: CLOPIDOGREL BISULFATE 75 MG TAB PO SCH (11:48)
[2023-05-25] MEDS: ASPirin 81 mg TAB PO SCH (11:49)
[2023-05-25] MEDS: DULoxetine HCL 30 MG CAP PO SCH (11:49)
[2023-05-25] MEDS: LINEZOLID 600MG/300ML 300 ML IV SCH ×2 (11:49→21:44)
[2023-05-25] MEDS: NIFEdipine ER 30 MG TAB PO SCH (11:50)
[2023-05-25] MEDS ORDERED: SODIUM BICARBONATE 50ML VIAL 150 ML in D5W 5% 1,000 ML IV ONE (14:00)
[2023-05-25] MEDS: CEFEPIME 2GM/50ML NS 50 ML IV SCH ×2 (14:40→22:00)
[2023-05-25 16:35] LABS: INR 1.09 (0.9-1.15); Partial Thromboplastin Time 23.8 SEC (24.5-34.5); Prothrombin Time 11.4 sec (9.3-11.8)
[2023-05-25] MEDS: risperiDONE 1 MG TAB PO SCH (17:03)
[2023-05-25] MEDS: ONDANSETRON HCL 4 MG/2 ML VIAL IV PRN (20:44)
[2023-05-25] MEDS: ATORVASTATIN 20 MG TAB PO SCH (21:44)
[2023-05-25] MEDS: traZODone HCL 50 MG TAB PO SCH (21:44)
[2023-05-25] MEDS: ZOLPIDEM TARTRATE 5 MG TAB PO SCH (21:44)
[2023-05-25] MEDS: DAKINS QUARTER STR 0.125% (NaHypochlorite) 473 ML TOPICAL SOL TOP SCH (22:00)
[2023-05-26 05:00] VITALS: BP 108/68; PULSE 81; RESP 18; TEMP 97.6; O2SAT 95
[2023-05-26 05:33] LABS: Basophils # (auto) 0.1 10 ^3/uL (0-0.2); Basophils % (auto) 0.9 % (0.0-2.0); Eosinophils # (auto) 0.2 10 ^3/uL (0-0.8); Eosinophils % (auto) 3.1 % (0.0-7.0); Hematocrit 31.2 % (36.0-46.0); Hemoglobin 10.4 g/dL (12.2-16.2); Lymphocytes # (auto) 1.5 10 ^3/uL (0.4-5.4); Mean Corpuscular Hemoglobin 30.2 pg (28.0-32.0); Mean Corpuscular Hgb Conc. 33.3 g/dL (32.0-36.0); Mean Corpuscular Volume 90.5 fL (80.0-100.0); Monocytes # (auto) 0.8 10 ^3/uL (0-1.3); Neutrophils # (auto) 4.3 10 ^3/uL (1.6-8.6); Red Blood Cells 3.44 10^6/uL (4.0-5.20); Red Cell Distribution Width 12.2 % (11.8-14.3); White Blood Cell 6.8 10^3/uL (4.4-10.8)
[2023-05-26 05:46] LABS: Alanine Aminotransferase 18 U/L (7-40); Albumin 3.6 g/dL (3.2-4.8); Alkaline Phosphatase 63 U/L (46-116); Anion Gap 7 (5-15); Aspartate Aminotransferase 16 U/L (13-40); BUN/Creatinine Ratio 15.2 (10.0-20.0); Bilirubin, Total 0.5 mg/dL (0.2-1.0); Blood Urea Nitrogen 30 mg/dL (9-23); Calcium 8.3 mg/dL (8.7-10.4); Carbon Dioxide 24 mmol/L (20-30); Chloride 106 mmol/L (98-107); Glucose 176 mg/dL (74-106); Potassium 4.8 mmol/L (3.5-5.1); Sodium 137 mmol/L (136-145); Total Protein 5.8 g/dL (5.7-8.2)
[2023-05-26] MEDS: ACCU-CHEK COMFORT CURVE STRIP VI SCH ×4 (06:20→22:00)
[2023-05-26] MEDS: EMPAGLIFLOZIN 10 MG TAB PO SCH (06:21)
[2023-05-26] MEDS: InsuLIN REG 1unit/0.01ml Soln (100units/ml) SC SCH ×4 (07:00→22:45)
[2023-05-26 07:56] LABS: % Iron Saturation 27.2 % (15-50)
[2023-05-26 08:00] VITALS: RESP 18; O2SAT 98
[2023-05-26] MEDS ORDERED: LACTULOSE 20Gm/30ML SOLN PO ONE (08:30)
[2023-05-26 09:00] VITALS: BP 130/68; PULSE 88; RESP 19; TEMP 98; O2SAT 96
[2023-05-26] MEDS: HYDROcodone-ACET 5/325MG TAB PO PRN (09:32)
[2023-05-26] MEDS: LINEZOLID 600MG/300ML 300 ML IV SCH ×2 (09:32→22:38)
[2023-05-26] MEDS: DAKINS QUARTER STR 0.125% (NaHypochlorite) 473 ML TOPICAL SOL TOP SCH ×2 (10:00→22:00)
[2023-05-26] MEDS: DULoxetine HCL 30 MG CAP PO SCH (11:05)
[2023-05-26] MEDS: risperiDONE 1 MG TAB PO SCH (11:06)
[2023-05-26] MEDS: NIFEdipine ER 30 MG TAB PO SCH (11:07)
[2023-05-26] MEDS: ASPirin 81 mg TAB PO SCH (11:07)
[2023-05-26] MEDS: CLOPIDOGREL BISULFATE 75 MG TAB PO SCH (11:07)
[2023-05-26] MEDS: CEFEPIME 2GM/50ML NS 50 ML IV SCH ×2 (11:08→22:37)
[2023-05-26 11:36] LABS: Urine Bacteria NONE SEEN /hpf (None Seen); Urine Blood Negative /uL (Negative); Urine Clarity Clear (Clear); Urine Color Colorless (Yellow); Urine Protein, UAD TRACE (Negative); Urine Specific Gravity 1.017 (1.001-1.035); Urine Urobilinogen Normal (Negative); Urine WBC <1 /hpf (0 - 5)
[2023-05-26 11:43] LABS: Sodium Urine 52 mmol/L (40-220)
[2023-05-26 11:48] LABS: Protein, Urine 23.8 mg/dL (0.0-11.9)
[2023-05-26 11:49] LABS: Amphetamine Screen, Urine Neg (NEGATIVE); Benzodiazephine Screen, Urine Neg (NEGATIVE)
[2023-05-26 11:50] LABS: Barbiturate Scree,Urine Neg (NEGATIVE); Cannabinoid Screen, Urine Neg (NEGATIVE); Cocaine Screen, Urine Neg (NEGATIVE); Creatinine, Urine 57.67 mg/dL (30.0-125.0); Opiate Scree,Urine Pos (NEGATIVE); Phencyclidine Screen, Urine Neg (NEGATIVE); Urine Protein/Creatinine Ratio 0.41
[2023-05-26 13:00] VITALS: BP 126/60; PULSE 84; RESP 19; TEMP 97.6; O2SAT 97
[2023-05-26] MEDS ORDERED: LIDOCAINE 1% (LOCAL ANESTH.) PF 5ml SDV ID ONE (13:00)
[2023-05-26] MEDS: MORPHINE SULFATE INJ 2 MG/ml SYRG IV PRN (16:39)
[2023-05-26 17:00] VITALS: BP 131/68; PULSE 84; RESP 19; TEMP 97.8; O2SAT 96
[2023-05-26 22:00] VITALS: BP 125/67; PULSE 86; RESP 16; TEMP 97.9; O2SAT 94
[2023-05-26] MEDS: traZODone HCL 50 MG TAB PO SCH (22:37)
[2023-05-26] MEDS: ATORVASTATIN 20 MG TAB PO SCH (22:37)
[2023-05-26] MEDS: ZOLPIDEM TARTRATE 5 MG TAB PO SCH (22:37)
[2023-05-26] MEDS: SODIUM CHLOR 0.9% PF (SALINE LOCK) 10ML VIAL/SYR IV SCH (22:42)
[2023-05-27 05:00] VITALS: BP 136/66; PULSE 93; RESP 18; TEMP 98.7; O2SAT 94
[2023-05-27] MEDS: InsuLIN REG 1unit/0.01ml Soln (100units/ml) SC SCH ×4 (06:01→21:09)
[2023-05-27] MEDS: EMPAGLIFLOZIN 10 MG TAB PO SCH (06:02)
[2023-05-27] MEDS: ACCU-CHEK COMFORT CURVE STRIP VI SCH ×4 (06:02→21:18)
[2023-05-27 06:13] LABS: Basophils # (auto) 0.1 10 ^3/uL (0-0.2); Eosinophils # (auto) 0.1 10 ^3/uL (0-0.8); Eosinophils % (auto) 2.5 % (0.0-7.0); Hemoglobin 11.1 g/dL (12.2-16.2); Lymphocytes # (auto) 0.4 10 ^3/uL (0.4-5.4); Lymphocytes % (auto) 6.8 % (10.0-50.0); Mean Corpuscular Hemoglobin 30.1 pg (28.0-32.0); Mean Corpuscular Hgb Conc. 33.6 g/dL (32.0-36.0); Mean Corpuscular Volume 89.5 fL (80.0-100.0); Monocytes # (auto) 0.7 10 ^3/uL (0-1.3); Monocytes % (auto) 11.5 % (0.0-12.0); Neutrophils # (auto) 4.5 10 ^3/uL (1.6-8.6); Neutrophils % (auto) 78.2 % (37.0-80.0); Red Blood Cells 3.69 10^6/uL (4.0-5.20); Red Cell Distribution Width 11.9 % (11.8-14.3); White Blood Cell 5.7 10^3/uL (4.4-10.8)
[2023-05-27 06:22] LABS: Anion Gap 12 (5-15); Carbon Dioxide 21 mmol/L (20-30); Chloride 105 mmol/L (98-107); Potassium 4.8 mmol/L (3.5-5.1); Sodium 138 mmol/L (136-145)
[2023-05-27 06:23] LABS: Calcium 8.8 mg/dL (8.5-10.1)
[2023-05-27 06:28] LABS: BUN/Creatinine Ratio 18.7 (10.0-20.0); Blood Urea Nitrogen 35 mg/dL (9-23); Glucose 187 mg/dL (74-106)
[2023-05-27 08:58] VITALS: BP 125/73; PULSE 105; RESP 18; TEMP 98.5; O2SAT 95
[2023-05-27] MEDS: LINEZOLID 600MG/300ML 300 ML IV SCH ×2 (09:03→21:16)
[2023-05-27] MEDS: DAKINS QUARTER STR 0.125% (NaHypochlorite) 473 ML TOPICAL SOL TOP SCH ×2 (10:00→21:17)
[2023-05-27] MEDS: SODIUM CHLOR 0.9% PF (SALINE LOCK) 10ML VIAL/SYR IV SCH ×2 (10:35→21:16)
[2023-05-27] MEDS: CLOPIDOGREL BISULFATE 75 MG TAB PO SCH (10:35)
[2023-05-27] MEDS: CEFEPIME 2GM/50ML NS 50 ML IV SCH ×2 (10:35→21:16)
[2023-05-27] MEDS: ASPirin 81 mg TAB PO SCH (10:35)
[2023-05-27] MEDS: DULoxetine HCL 30 MG CAP PO SCH (10:36)
[2023-05-27] MEDS: risperiDONE 1 MG TAB PO SCH (10:36)
[2023-05-27] MEDS: NIFEdipine ER 30 MG TAB PO SCH (10:36)
[2023-05-27 13:00] VITALS: BP 134/62; PULSE 94; RESP 19; TEMP 98.1; O2SAT 97
[2023-05-27 17:00] VITALS: BP 139/83; PULSE 93; RESP 19; TEMP 97.5; O2SAT 97
[2023-05-27] MEDS ORDERED: LORazepam 0.5 MG TAB PO ONE (18:30)
[2023-05-27] MEDS: traZODone HCL 50 MG TAB PO SCH (21:17)
[2023-05-27] MEDS: ZOLPIDEM TARTRATE 5 MG TAB PO SCH (21:17)
[2023-05-27] MEDS: ATORVASTATIN 20 MG TAB PO SCH (21:21)
[2023-05-27 22:00] VITALS: BP 156/76; PULSE 93; RESP 18; TEMP 98.6; O2SAT 94
[2023-05-27] MEDS: HYDROcodone-ACET 5/325MG TAB PO PRN (22:12)
[2023-05-27 23:00] VITALS: BP 129/64
[2023-05-28 05:00] VITALS: BP 126/66; PULSE 93; RESP 18; TEMP 98.6; O2SAT 98
[2023-05-28] MEDS: InsuLIN REG 1unit/0.01ml Soln (100units/ml) SC SCH ×4 (06:16→22:16)
[2023-05-28] MEDS: ACCU-CHEK COMFORT CURVE STRIP VI SCH ×4 (06:17→22:13)
[2023-05-28] MEDS: EMPAGLIFLOZIN 10 MG TAB PO SCH (06:17)
[2023-05-28 06:45] LABS: Hematocrit 34.7 % (36.0-46.0); Hemoglobin 11.7 g/dL (12.2-16.2); Mean Corpuscular Hemoglobin 29.9 pg (28.0-32.0); Mean Corpuscular Hgb Conc. 33.9 g/dL (32.0-36.0); Mean Corpuscular Volume 88.1 fL (80.0-100.0); Red Blood Cells 3.93 10^6/uL (4.0-5.20); Red Cell Distribution Width 12.2 % (11.8-14.3); White Blood Cell 4.8 10^3/uL (4.4-10.8)
[2023-05-28 07:40] LABS: Basophils % (manual) 0 (0.0-2.0); Blast Cells 0; Metamyelocytes % 0; Myelocytes % 0; Promyelocytes % 0; Reactive Lymphocytes 0
[2023-05-28 08:16] LABS: Chloride 105 mmol/L (98-107); Potassium 4.1 mmol/L (3.5-5.1); Sodium 137 mmol/L (136-145)
[2023-05-28 08:17] LABS: Anion Gap 9 (5-15); Calcium 9.4 mg/dL (8.5-10.1); Carbon Dioxide 23 mmol/L (20-30)
[2023-05-28 08:22] LABS: BUN/Creatinine Ratio 11.8 (10.0-20.0); Blood Urea Nitrogen 22 mg/dL (9-23); Glucose 160 mg/dL (74-106)
[2023-05-28 09:00] VITALS: BP 140/60; PULSE 92; RESP 19; TEMP 98.8; O2SAT 96
[2023-05-28] MEDS: LINEZOLID 600MG/300ML 300 ML IV SCH ×2 (09:03→21:34)
[2023-05-28] MEDS: SODIUM CHLOR 0.9% PF (SALINE LOCK) 10ML VIAL/SYR IV SCH ×2 (10:00→21:34)
[2023-05-28] MEDS: DAKINS QUARTER STR 0.125% (NaHypochlorite) 473 ML TOPICAL SOL TOP SCH ×2 (10:00→21:59)
[2023-05-28] MEDS: risperiDONE 1 MG TAB PO SCH (10:48)
[2023-05-28] MEDS: DULoxetine HCL 30 MG CAP PO SCH (10:48)
[2023-05-28] MEDS: CLOPIDOGREL BISULFATE 75 MG TAB PO SCH (10:48)
[2023-05-28] MEDS: NIFEdipine ER 30 MG TAB PO SCH (10:48)
[2023-05-28] MEDS: ASPirin 81 mg TAB PO SCH (10:48)
[2023-05-28] MEDS: HYDROcodone-ACET 5/325MG TAB PO PRN ×2 (10:53→21:56)
[2023-05-28] MEDS: CEFEPIME 2GM/50ML NS 50 ML IV SCH (11:33)
[2023-05-28 12:56] LABS: Band Neutrophils % (manual) 2; Lymphocytes % (manual) 15 (10.0-50.0)
[2023-05-28 12:57] LABS: Eosinophils % (manual) 2 (0-7); Monocytes % (manual) 23 (0-12); Platelet Estimate Decreased
[2023-05-28 13:00] VITALS: BP 102/54; PULSE 95; RESP 18; TEMP 98.4; O2SAT 96
[2023-05-28 17:00] VITALS: BP 154/84; PULSE 88; RESP 19; TEMP 98.1; O2SAT 97
[2023-05-28 20:00] VITALS: PULSE 96; RESP 18; O2SAT 97
[2023-05-28] MEDS: traZODone HCL 50 MG TAB PO SCH (21:34)
[2023-05-28] MEDS: ATORVASTATIN 20 MG TAB PO SCH (21:34)
[2023-05-28] MEDS: ZOLPIDEM TARTRATE 5 MG TAB PO SCH (21:34)
[2023-05-28 22:00] VITALS: BP 131/78; PULSE 96; RESP 18; TEMP 97.8; O2SAT 97
[2023-05-29 05:00] VITALS: BP 134/72; PULSE 90; RESP 18; TEMP 97.7; O2SAT 91
[2023-05-29 06:05] LABS: Hematocrit 36.1 % (36.0-46.0); Hemoglobin 12.2 g/dL (12.2-16.2); Mean Corpuscular Hemoglobin 30.1 pg (28.0-32.0); Mean Corpuscular Hgb Conc. 33.9 g/dL (32.0-36.0); Mean Corpuscular Volume 88.8 fL (80.0-100.0); Red Blood Cells 4.06 10^6/uL (4.0-5.20)
[2023-05-29 06:10] LABS: Band Neutrophils % (manual) 0; Basophils % (manual) 0 (0.0-2.0); Blast Cells 0; Metamyelocytes % 0; Myelocytes % 0; Promyelocytes % 0; Reactive Lymphocytes 0
[2023-05-29 06:17] LABS: Alanine Aminotransferase 26 U/L (7-40); Albumin 4.1 g/dL (3.2-4.8); Alkaline Phosphatase 74 U/L (46-116); Anion Gap 11 (5-15); Aspartate Aminotransferase 24 U/L (13-40); BUN/Creatinine Ratio 9.5 (10.0-20.0); Blood Urea Nitrogen 18 mg/dL (9-23); Calcium 8.9 mg/dL (8.7-10.4); Carbon Dioxide 20 mmol/L (20-30); Chloride 105 mmol/L (98-107); Glucose 149 mg/dL (74-106); Magnesium 2.2 mg/dL (1.6-2.6); Potassium 4.1 mmol/L (3.5-5.1); Sodium 136 mmol/L (136-145)
[2023-05-29 06:18] LABS: Bilirubin, Total 0.5 mg/dL (0.2-1.0); Total Protein 6.6 g/dL (5.7-8.2)
[2023-05-29] MEDS: ACCU-CHEK COMFORT CURVE STRIP VI SCH ×2 (06:25→11:04)
[2023-05-29 06:36] LABS: CRP High Sensitivity 0.83 mg/dL (<1.0)
[2023-05-29] MEDS: EMPAGLIFLOZIN 10 MG TAB PO SCH (06:37)
[2023-05-29] MEDS: InsuLIN REG 1unit/0.01ml Soln (100units/ml) SC SCH ×2 (06:42→11:04)
[2023-05-29] MEDS ORDERED: DULO-141 PO (08:02)
[2023-05-29 08:21] LABS: Eosinophils % (manual) 1 (0-7); Lymphocytes % (manual) 20 (10.0-50.0); Monocytes % (manual) 17 (0-12); Platelet Estimate Decreased
[2023-05-29 09:00] VITALS: BP 127/71; PULSE 96; RESP 18; O2SAT 98
[2023-05-29] MEDS: DAKINS QUARTER STR 0.125% (NaHypochlorite) 473 ML TOPICAL SOL TOP SCH (10:00)
[2023-05-29] MEDS: LINEZOLID 600MG/300ML 300 ML IV SCH (10:00)
[2023-05-29] MEDS: SODIUM CHLOR 0.9% PF (SALINE LOCK) 10ML VIAL/SYR IV SCH (11:03)
[2023-05-29] MEDS: DULoxetine HCL 30 MG CAP PO SCH (11:04)
[2023-05-29] MEDS: risperiDONE 1 MG TAB PO SCH (11:04)
[2023-05-29] MEDS: CLOPIDOGREL BISULFATE 75 MG TAB PO SCH (11:04)
[2023-05-29] MEDS: ASPirin 81 mg TAB PO SCH (11:04)
[2023-05-29] MEDS: NIFEdipine ER 30 MG TAB PO SCH (11:12)
[2023-05-29 11:49] VITALS: BP 127/71; TEMP 36.5
[2023-05-29 13:00] VITALS: BP 149/89; PULSE 91; RESP 20; TEMP 97.3; O2SAT 93
== END 2023-05-29 14:25 | disposition home health service (06) | DRG 344 ==
LOC: ER 11:24 → OVERFLOW 15:41 → WEST WING 22:27
PROVIDERS: ADMIT Internal Medicine; ATTEND Internal Medicine
PROC: 05HY33Z Insertion of Infusion Device into Upper Vein, Percutaneous Approach (ICD-10-PCS; principal; 2023-05-26)
PROC: B54MZZA Ultrasonography of Right Upper Extremity Veins, Guidance (ICD-10-PCS; 2023-05-26)
DX: E11.69 Type 2 diabetes mellitus with other specified complication (principal); M86.8X7 Other osteomyelitis, ankle and foot; N17.0 Acute kidney failure with tubular necrosis; E11.22 Type 2 diabetes mellitus with diabetic chronic kidney disease; E11.51 Type 2 diabetes mellitus with diabetic peripheral angiopathy without gangrene; D64.9 Anemia, unspecified; E11.65 Type 2 diabetes mellitus with hyperglycemia; L03.031 Cellulitis of right toe; E87.5 Hyperkalemia; I12.9 Hypertensive chronic kidney disease with stage 1 through stage 4 chronic kidney disease, or unspecified chronic kidney disease; N18.32 Chronic kidney disease, stage 3b; I25.10 Atherosclerotic heart disease of native coronary artery without angina pectoris; F32.A Depression, unspecified; Z90.710 Acquired absence of both cervix and uterus; Z86.73 Personal history of transient ischemic attack (TIA), and cerebral infarction without residual deficits; Z95.5 Presence of coronary angioplasty implant and graft; Z88.0 Allergy status to penicillin; Z88.8 Allergy status to other drugs, medicaments and biological substances; I25.2 Old myocardial infarction; Z83.3 Family history of diabetes mellitus; Z80.7 Family history of other malignant neoplasms of lymphoid, hematopoietic and related tissues; Z82.49 Family history of ischemic heart disease and other diseases of the circulatory system; Z79.4 Long term (current) use of insulin
CPT/HCPCS: 36415; 36569; 70450; 71045; 73718; 80048; 80053; 80307; 81001; 82043; 82306; 82570; 82607; 82962; 83036; 83540; 83550; 83605; 83735; 83880; 83970; 84132; 84156; 84300; 84443; 84484; 85007; 85025; 85027; 85610; 85652; 85730; 86141; 87040; 87077; 87186; 87205; 93306; 93926; 93971; 94640; 96365; 96367; 96375; G0378; J0692; J1815; J2405; J3490

== ENCOUNTER 2023-06-28 15:03 | Emergency (ER) | payer MEDICAID ==
[~2023-06-28] VITALS: Ht 177.8 cm; Wt 85.0 kg
[~2023-06-28 15:03] MED LIST changes: +CLOP75TA70 PO; +DULO-141 PO; -DULO20CA PO; +EMPA1TAB PO; -HYDR-4798 PO; +HYDR1CAP27 PO; +LINA145C PO; -LORA-1123 PO; -LURA40TA2 PO; -MIRT1TAB40 PO; +RISP2TAB62 PO; -TICA90TA PO
[2023-06-28 17:22] LABS: Basophils # (auto) 0.1 10 ^3/uL (0-0.2); Basophils % (auto) 1.3 % (0.0-2.0); Eosinophils # (auto) 0.2 10 ^3/uL (0-0.8); Eosinophils % (auto) 3.4 % (0.0-7.0); Hematocrit 35.1 % (36.0-46.0); Lymphocytes # (auto) 1.4 10 ^3/uL (0.4-5.4); Lymphocytes % (auto) 24.6 % (10.0-50.0); Mean Corpuscular Hemoglobin 30.1 pg (28.0-32.0); Mean Corpuscular Hgb Conc. 31.3 g/dL (32.0-36.0); Monocytes # (auto) 0.6 10 ^3/uL (0-1.3); Monocytes % (auto) 11.4 % (0.0-12.0); Neutrophils # (auto) 3.3 10 ^3/uL (1.6-8.6); Neutrophils % (auto) 59.3 % (37.0-80.0); Nucleated Red Blood Cells % 0.1 %; Red Blood Cells 3.65 10^6/uL (4.0-5.20); Red Cell Distribution Width 15.4 % (11.8-14.3); White Blood Cell 5.6 10^3/uL (4.4-10.8)
[2023-06-28 17:38] LABS: Alanine Aminotransferase 88 U/L (7-40); Alkaline Phosphatase 103 U/L (46-116); Anion Gap 6 (5-15); Aspartate Aminotransferase 56 U/L (13-40); BUN/Creatinine Ratio 21.5 (10.0-20.0); Blood Urea Nitrogen 49 mg/dL (9-23); Calcium 8.8 mg/dL (8.5-10.1); Carbon Dioxide 19 mmol/L (20-30); Chloride 113 mmol/L (98-107); Glucose 302 mg/dL (74-106); Sodium 138 mmol/L (136-145)
[2023-06-28 17:39] LABS: Bilirubin, Total 0.2 mg/dL (0.2-1.0); Total Protein 6.7 g/dL (5.7-8.2)
[2023-06-28 18:24] LABS: Potassium 5.7 mmol/L (3.5-5.1)
[2023-06-28] MEDS ORDERED: ALBUTEROL SULF 2.5 MG/0.5ML(0.5%) NEB SOLN ONE (19:12)
[2023-06-28] MEDS ORDERED: SODIUM BICARBONATE 8.4% INJ 50ML SYRINGE IV ONE (19:15)
[2023-06-28] MEDS ORDERED: InsuLIN REG 1unit/0.01ml Soln (100units/ml) IV ONE (19:15)
[2023-06-28] MEDS ORDERED: ALBUTEROL SULF 2.5 MG/0.5ML(0.5%) NEB SOLN NEB ONE (19:15)
[2023-06-28] MEDS ORDERED: FUROSEMIDE 20 MG/2 ML VIAL IV ONE (19:15)
[2023-06-28] MEDS ORDERED: CALCIUM GLUC 1,000mg/50ml-NS 50 ML IV ONE (19:15)
[2023-06-28] MEDS ORDERED: SODIUM ZIRCONIUM CYCL 10 GM PAK PO ONE (19:15)
[2023-06-28 19:30] VITALS: PULSE 101; RESP 20; O2SAT 90
[2023-06-28] MEDS ORDERED: SODIUM CHLORIDE 0.9% 1,000 ML IV ONE (20:15)
[2023-06-28] MEDS ORDERED: HYDROcodone-ACET 5/325MG TAB PO ONE (21:45)
[2023-06-28 21:56] LABS: Alanine Aminotransferase 85 U/L (7-40); Albumin 3.8 g/dL (3.2-4.8); Alkaline Phosphatase 94 U/L (46-116); Anion Gap 9 (5-15); Aspartate Aminotransferase 46 U/L (13-40); BUN/Creatinine Ratio 26.5 (10.0-20.0); Bilirubin, Total 0.2 mg/dL (0.2-1.0); Blood Urea Nitrogen 56 mg/dL (9-23); Calcium 8.6 mg/dL (8.7-10.4); Carbon Dioxide 21 mmol/L (20-30); Chloride 113 mmol/L (98-107); Glucose 184 mg/dL (74-106); Potassium 4.2 mmol/L (3.5-5.1); Sodium 143 mmol/L (136-145); Total Protein 6.4 g/dL (5.7-8.2)
[2023-06-28 22:51] VITALS: BP 132/57; PULSE 94; RESP 18; O2SAT 97
[2023-06-30] MEDS ORDERED: HYDR-4902 PO ×2 (08:19→11:36)
[2023-06-30] MEDS ORDERED: CLIN300C70 PO (08:19)
[2023-06-30] MEDS ORDERED: ACE650RS PR (08:19)
== END 2023-06-28 23:07 | disposition home or self-care (01) ==
LOC: ER 15:03
DX: E87.5 Hyperkalemia (principal); E11.65 Type 2 diabetes mellitus with hyperglycemia; N28.9 Disorder of kidney and ureter, unspecified; Z88.0 Allergy status to penicillin; Z88.6 Allergy status to analgesic agent; Z90.710 Acquired absence of both cervix and uterus
CPT/HCPCS: 36415; 80053; 82962; 85025; 96365; 96375; 99291; J0610; J1815; J1940; J7030

== ENCOUNTER → 2023-06-30 | Day surgery (SDC) | payer MEDICAID ==
[2023-06-28 11:05] LABS: Basophils # (auto) 0.1 10 ^3/uL (0-0.2); Basophils % (auto) 1.3 % (0.0-2.0); Eosinophils # (auto) 0.2 10 ^3/uL (0-0.8); Eosinophils % (auto) 2.8 % (0.0-7.0); Hematocrit 34.4 % (36.0-46.0); Hemoglobin 11.2 g/dL (12.2-16.2); Lymphocytes # (auto) 1.5 10 ^3/uL (0.4-5.4); Lymphocytes % (auto) 22.5 % (10.0-50.0); Mean Corpuscular Hgb Conc. 32.5 g/dL (32.0-36.0); Mean Corpuscular Volume 92.3 fL (80.0-100.0); Monocytes # (auto) 0.7 10 ^3/uL (0-1.3); Monocytes % (auto) 10.3 % (0.0-12.0); Neutrophils # (auto) 4.1 10 ^3/uL (1.6-8.6); Neutrophils % (auto) 63.1 % (37.0-80.0); Red Blood Cells 3.72 10^6/uL (4.0-5.20); Red Cell Distribution Width 14.8 % (11.8-14.3); White Blood Cell 6.4 10^3/uL (4.4-10.8)
[2023-06-28 11:24] LABS: INR 1.12 (0.9-1.15); Partial Thromboplastin Time 28.5 SEC (24.5-34.5); Prothrombin Time 11.7 sec (9.3-11.8)
[2023-06-28 13:42] LABS: Alanine Aminotransferase 94 U/L (7-40); Albumin 3.9 g/dL (3.2-4.8); Alkaline Phosphatase 89 U/L (46-116); Anion Gap 7 (5-15); Aspartate Aminotransferase 64 U/L (13-40); BUN/Creatinine Ratio 25.5 (10.0-20.0); Bilirubin, Total 0.4 mg/dL (0.2-1.0); Blood Urea Nitrogen 55 mg/dL (9-23); Calcium 9.1 mg/dL (8.5-10.1); Carbon Dioxide 19 mmol/L (20-30); Chloride 114 mmol/L (98-107); Glucose 123 mg/dL (74-106); Sodium 140 mmol/L (136-145); Total Protein 6.5 g/dL (5.7-8.2)
[2023-06-28 14:03] LABS: Potassium 6.1 mmol/L (3.5-5.1)
[2023-06-28 15:18] LABS: Urine Epithelial Cast None Seen /hpf (<5)
[2023-06-28 15:50] LABS: Urine Bacteria NONE SEEN /hpf (None Seen); Urine Blood 2+ /uL (Negative); Urine Budding Yeast LOADED /hpf (None Seen); Urine Clarity CLOUDY (Clear); Urine Color PINK (Yellow); Urine Protein, UAD 2+ (Negative); Urine Urobilinogen Normal (Negative); Urine WBC 3561 /hpf (0 - 5); Urine WBC Clumps PRESENT /hpf (None Seen); Urine pH 5.5 (5.0-8.0)
[~2023-06-30] VITALS: Ht 177.8 cm; Wt 82.6 kg
[~2023-06-30] MED LIST changes: +ACCU-CHEK COMFORT CURVE STRIP VI ONE; +ACE650RS PR; +BUPIVACAINE 0.5% P/F INJ 10 ML VIAL ONE; +CLIN300C70 PO; +GLYCOPYRROLATE 0.2 MG/ML 1ML VIAL ONE; +HYDR-4902 PO; +HYDROmorphone HCL 2 MG/ML VL/or syr IV PRN; +KETAMINE 50mg/ML 10ml Vial 0 ML ONE; +KETAMINE 50mg/ML 1ml syringe ONE; +LIDOCAINE 1% HCL (LOCAL ANESTH.) INJ 20ML MDV ONE; +MIDAZOLAM HCL 2MG/2ML 2ml VIAL (1mg/ml) ONE; +ONDANSETRON HCL 4 MG/2 ML VIAL IV PRN; +ONDANSETRON HCL 4 MG/2 ML VIAL ONE; +PROPOFOL 10 MG/ML 20 ML IV ONE; +ceFAZolin 2 GM/D5W100ml 100 ML IV ONE; +ePHEDrine SULFATE 50 MG/ML AMP ONE
[2023-06-30 08:19] VITALS: PULSE 81; RESP 12; TEMP 97; O2SAT 100
[2023-06-30 10:04] VITALS: BP 148/68; PULSE 76; RESP 18; O2SAT 93
== END | disposition home or self-care (01) ==
LOC: SUR 05:48
PROVIDERS: ATTEND Student in an Organized Health Care Education/Training Program
DX: M86.8X7 Other osteomyelitis, ankle and foot (principal); F41.8 Other specified anxiety disorders; E11.621 Type 2 diabetes mellitus with foot ulcer; I25.2 Old myocardial infarction; I12.9 Hypertensive chronic kidney disease with stage 1 through stage 4 chronic kidney disease, or unspecified chronic kidney disease; E11.22 Type 2 diabetes mellitus with diabetic chronic kidney disease; N18.30 Chronic kidney disease, stage 3 unspecified; Z88.8 Allergy status to other drugs, medicaments and biological substances; Z82.49 Family history of ischemic heart disease and other diseases of the circulatory system; Z83.3 Family history of diabetes mellitus; Z95.5 Presence of coronary angioplasty implant and graft; Z88.0 Allergy status to penicillin; Z79.82 Long term (current) use of aspirin; Z79.899 Other long term (current) drug therapy; Z79.891 Long term (current) use of opiate analgesic; Z79.84 Long term (current) use of oral hypoglycemic drugs; Z90.710 Acquired absence of both cervix and uterus; Z98.890 Other specified postprocedural states
CPT/HCPCS: 28820; 36415; 73630; 80053; 81001; 82962; 85025; 85610; 85730; 87070; 87075; 87205; J1170; J2001; J2250; J2405; J2704; J3490; 87077; 87186

== ENCOUNTER 2024-10-07 16:49 | Emergency (ER) | payer MEDICAID ==
[~2024-10-07] VITALS: Ht 165.1 cm; Wt 78.9 kg
[~2024-10-07 16:49] MED LIST changes: -ACCU-CHEK COMFORT CURVE STRIP VI ONE; -ATO40T PO; +ATOR-507 PO; -BUPIVACAINE 0.5% P/F INJ 10 ML VIAL ONE; +CLIN1CAP70 PO; -CLIN300C70 PO; -GLYCOPYRROLATE 0.2 MG/ML 1ML VIAL ONE; -HYDROmorphone HCL 2 MG/ML VL/or syr IV PRN; -KETAMINE 50mg/ML 10ml Vial 0 ML ONE; -KETAMINE 50mg/ML 1ml syringe ONE; -LIDOCAINE 1% HCL (LOCAL ANESTH.) INJ 20ML MDV ONE; -MIDAZOLAM HCL 2MG/2ML 2ml VIAL (1mg/ml) ONE; -ONDANSETRON HCL 4 MG/2 ML VIAL IV PRN; -ONDANSETRON HCL 4 MG/2 ML VIAL ONE; -PROPOFOL 10 MG/ML 20 ML IV ONE; -ceFAZolin 2 GM/D5W100ml 100 ML IV ONE; -ePHEDrine SULFATE 50 MG/ML AMP ONE
[2024-10-07 17:06] VITALS: BP 146/80; RESP 19; TEMP 98; O2SAT 98
[2024-10-07 17:26] VITALS: PULSE 78
[2024-10-07] MEDS: TETRACAINE HCL 0.5% OPTH(EYE) SOLN 4ML EACHEYE ONE (19:00)
--- NOTE | 2024-10-07 19:17 | ED.PDOC ---
Eye-HPI HPI Comments 69-year-old female complaining of bilateral eye burning and irritation. Patient states she went to the garage worker office at 11:00 a.m. this morning. States they put a needle into her eye, she was not know that procedure they did. She was states she has blood behind her retina was due to diabetes. States since then she has been having burning in bilateral eyes. Nothing makes it better, nothing makes it worse. She called garage worker's office and they advised her to flush her eyes. They could not find I flush out the cause she was started so they came into the emergency department. He was patient reports burning pain, blurred vision. Chief Complaint: Eye Problem Time Seen by MD: 18:45 Primary Care Provider: KEITH Reviewed Notes: Nurses Notes Allergies: Coded Allergies: Benzyl Alcohol (Verified Allergy, Severe, 10/05/18) Penicillins (Verified Allergy, Severe, 10/05/18) Prochlorperazine (Verified Allergy, Severe, 10/05/18) Saccharin (Verified Allergy, Severe, 10/05/18) Promethazine (Verified Allergy, Unknown, 03/23/18) Home Meds Active Scripts Hydrocodone-Acetaminophen (Hydrocodone Bitartrate/AC 5-325 mg) 1 Tab Tab, 1 TAB PO Q8HR for 7 Days, #21 TAB Prov:AHOLIVER ALONSOED N DPM 06/30/23 Acetaminophen (Tylenol) 650 Mg Rc, 650 MG DC Q8HR for 7 Days, #21 SUPP.RECT Prov:AHMED,DELORIS N DPM 06/30/23 Hydrocodone-Acetaminophen (Hydrocodone Bitartrate/AC 5-325 mg) 1 Tab Tab, 1 TAB PO Q8HR for 7 Days, #21 TAB Prov:AHOLIVER ALONSOED N DPM 06/30/23 Clindamycin Hcl (Clindamycin Hcl) 300 Mg Cap, 300 MG PO TID for 7 Days, #21 CAP Prov:AHMED,DELORIS N DPM 06/30/23 Duloxetine Hydrochloride (Duloxetine Hydrochloride) 30 Mg Cap, 60 MG PO DAILY for 30 Days, #30 CAP Prov:CANDACE VYAS RESIDENT 05/29/23 Reported Medications Empagliflozin (Jardiance) 10 Mg Tab, 1 TAB PO DAILY 05/24/23 Linaclotide Base (LINZESS) 145 Mcg Cap, 1 CAP PO QAM 05/24/23 Risperidone (Risperidone) 2 Mg Tab, 1 TAB PO DAILY 05/24/23 Hydroxyzine Pamoate (Hydroxyzine Pamoate) 25 Mg Cap, 1 CAP PO BIDPRN PRN for ANXIETY 05/24/23 Clopidogrel Bisulfate (CLOPIDOGREL) 75 Mg Tab, 1 TAB PO DAILY 05/24/23 Zolpidem Tartrate (Ambien) 10 Mg Tab, 1 TAB PO QPM for sleep, #30 TAB 5 Refills 06/24/22 Atorvastatin Calcium (Lipitor) 40 Mg Tab, 1 TAB PO DAILY, #30 TAB 5 Refills 04/30/21 Gabapentin (Gabapentin) 600 Mg Tab, 600 MG PO BID for 30 Days, MG 11/15/20 Aspirin (Aspirin) 81 Mg Chw, 81 MG PO DAILY 11/15/20 Amitriptyline Hcl (Amitriptyline Hcl) 10 Mg Tab, 10 MG PO DAILY for 30 Days, MG 0 Refills 11/15/20 Trazodone HCl (Trazodone Hydrochloride) 50 Mg Tab, 100 MG PO HS, TAB 11/15/20 Information Source: Patient Mode of Arrival: Wheelchair Past Medical History PAST MEDICAL HISTORY: CAD, DM, Gout, [place] Surgical History: Hysterectomy, PTCA GENERAL CLEANER History: No Pertinent GENERAL CLEANER History Family History Family History: Reviewed,noncontributory to illness Social History Smoker: Non-Smoker Alcohol: Denies ETOH Use Drugs: Denies Drug Use Lives In: Home Constitutional: denies: chills, diaphoresis, fatigue, fever, malaise, sweats, weakness, others EENTM: reports: eye pain, eye redness; denies: blurred vision, double vision, ear bleeding, ear discharge, ear drainage, ear pain, ear ringing, hearing loss, mouth pain, mouth swelling, nasal discharge, nose bleeding, nose congestion, nose pain, photophobia, tearing, throat pain, throat swelling, voice changes, others Respiratory: denies: cough, hemoptysis, orthopnea, SOB at rest, shortness of breath, SOB with excertion, stridor, wheezing, others Cardiovascular: denies: chest pain, dizzy spells, diaphoresis, Dyspnea on exertion, edema, irregular heart beat, left arm pain, lightheadedness, palpitations, PND, syncope, others Gastrointestinal: denies: abdomen distended, abdominal pain, blood streaked bowels, constipated, diarrhea, dysphagia, difficulty swallowing, hematemesis, melena, nausea, poor appetite, poor fluid intake, rectal bleeding, rectal pain, vomiting, others Genitourinary: denies: abnormal vagina bleeding, burning, dyspareunia, dysuria, flank pain, frequency, hematuria, incontinence, pain, , vagina discharge, urgency, others Neurological: denies: dizziness, fainting, headache, left sided numbness, left sided weakness, numbness, paresthesia, pre-existing deficit, right sided numbness, right sided weakness, seizure, speech problems, tingling, tremors, weakness, others Musculoskeletal: denies: back pain, gout, joint pain, joint swelling, muscle pain, muscle stiffness, neck pain, others Integumetry: denies: bruises, change in color, change in hair/nails, dryness, laceration, lesions, lumps, rash, wounds, others Allergic/Immunocompromised: denies: Difficulty Healing, Frequent Infections, Hives, Itching, others Hematologic/Lymphatic: denies: anemia, blood clots, easy bleeding, easy bruising, swollen glands, others Physical Exam General Appearance: No Apparent Distress, Normal HEENT: Normal ENT Inspection, Pale Conjuntivae (L) (Erythemic), Pale Conjuntivae (R) (Erythemic), Pharynx Normal, TMs Normal, Other (Subconjunctival hemorrhage noted on lateral sides of bilateral eyes.) Neck: Full Range of Motion, Non-Tender, Normal, Normal Inspection Respiratory: Chest Non-Tender, Lungs Clear, No Accessory Muscle Use, No Respiratory Distress, Normal Breath Sounds Cardiovascular: No Edema, No JVD, No Murmur, No Gallop, Normal Peripheral Pulses, Regular Rate/Rhythm Breast Exam: Deferred Gastrointestinal: No Organomegaly, Non Tender, No Pulsatile Mass, Normal Bowel Sounds, Soft Genitalia: Deferred Pelvic: Deferred Rectal: Deferred Extremities: No calf tenderness, Normal capillary refill, Normal inspection, Normal range of motion, Non-tender, No pedal edema Musculoskeletal : Apperance: Normal Neurologic: Alert, wildlife refuge manager II-XII nml as Tested, No Motor Deficits, Normal Affect, Normal Mood, No Sensory Deficits Cerebellar Function: Normal Reflexes: Normal Skin: Dry, Normal Color, Warm Lymphatic: No Adenopathy Was a procedure done? Was a procedure done?: No EENT DIFF Eye: Allergic, Bacterial, Corneal Ulceration, Glaucoma, Globe Rupture, Subconjunctival Hemorrhag, Ultraviolet Keratitis X-Ray, Labs, Meds, VS Vital Signs Date Time Temp Pulse Resp B/P (MAP) Pulse Ox O2 Delivery O2 Flow Rate FiO2 10/07/24 17:26 78 10/07/24 17:06 98.0 83 19 146/80 (102) 98 98.0 X-Ray, Labs, Meds, VS Comment Imaging: X-rays and CT scans were reviewed and interpreted by this provider, imaging shows no fractures and no pathological disease. Pending radiology review. Laboratory: Labs reviewed and interpreted by this provider. No significant abnormalities noted. Patient has prior medical visits reviewed. Med reconciliation performed Vital signs reviewed Time of 1ST Reevaluation: 19:16 Reevaluation 1ST: Improved (Tetracaine drops placed in bilateral eyes and patient reports relief of pain. Blurred vision gone.) Patient Education/Counseling: Diagnosis, Treatment, Need For Follow Up (Follow up with PCP/Ophthalmology tomorrow.) Family Education/Counseling: Diagnosis Departure 1 Departure Time of Disposition: 19:17 Impression: Primary Impression: Subconjunctival hemorrhage of both eyes Disposition: 01 HOME / SELF CARE / HOMELESS Condition: Fair Discharged With: Self, Spouse Comments Patient was appointment with Ophthalmology tomorrow at 1:00 p.m.. Critical Care Note Critical Care Time?: No Stability Stability form required: No Heart Score Heart Score: Heart Score Response (Comments) Value History N/A 0 EKG N/A 0 Age N/A 0 Risk Factors N/A 0 Troponin N/A 0 Total 0 ZAINAB DELGADO October 07, 2024 19:17
--- NOTE | 2024-10-10 20:46 | ECG ---
[facility] Test Date: 2024-10-07 Test Time: 17:26:19 Pat Name: RELL MILLER Department: ER Room: Gender: F Yarn Comber: TRENA : 1955 Requested By: KAYLYN CAT Order Number: [id number] Reading MD: Dae North Measurements Intervals [place] Rate: 78 P: 54 MN: 150 QRS: 60 QRSD: 111 T: -13 QT: 387 QTc: 441 Interpretive Statements Sinus rhythm Low voltage, precordial leads Borderline T abnormalities, inferior leads Baseline wander in lead(s) I,V6 Electronically Signed On 10-10-2024 20:46:01 PDT by Dae North Please click the below link to view image of tracing.
== END 2024-10-07 20:11 | disposition home or self-care (01) ==
LOC: ER 16:49
DX: H11.33 Conjunctival hemorrhage, bilateral (principal); I25.10 Atherosclerotic heart disease of native coronary artery without angina pectoris; I25.2 Old myocardial infarction; E11.9 Type 2 diabetes mellitus without complications; Z90.710 Acquired absence of both cervix and uterus; Z88.0 Allergy status to penicillin; Z79.899 Other long term (current) drug therapy
CPT/HCPCS: 93005